=== PATIENT | male | born 1960 | race Caucasian/White ===

== ENCOUNTER 2020-11-02 23:50 | Emergency (ER) | payer MEDICARE, MEDICAID, SELFPAY ==
--- NOTE | ~2020-11-02 | XR_ITS ---
EXAMINATION: XR abdomen/kub 1V INDICATION: Constipation TECHNIQUE: Supine views of the abdomen were obtained on 3 radiographs. COMPARISON: None FINDINGS: A moderate volume of colonic stool is present. A surgical anastomosis is noted in the right abdomen. There are no dilated loops of bowel. Phleboliths are noted in the pelvis. There is severe l ower lumbar spondylosis. IMPRESSION: 1. Constipation. Reviewed, dictated and finalized at location A. IMPRESSION: 1. Constipation.
[2020-11-02 23:58] VITALS: BP 136/99; PULSE 93; RESP 16; TEMP 36.3; O2SAT 99
[2020-11-03] VITALS (8 sets, daily range): BP systolic 146–148; BP diastolic 72–75; PULSE 78–123; RESP 16; O2SAT 97–100
[2020-11-03] MEDS: MAGNESIUM CITRATE 300 ML BTL PO (01:41)
--- NOTE | 2020-11-03 01:56 | PC.NURSE ---
ok to do fleets enema instead of soap suds d/t supply issue in dept.
--- NOTE | 2020-11-03 02:42 | ED.GENADULT ---
HPI - General Adult General Chief complaint: Unspecified Stated complaint: constipation x3 days Time Seen by Provider: 11/03/20 01:01 History of Present Illness HPI narrative: Patient is a 60-year-old male who presents the ER with constipation. Takes Suboxone 3 times a day. Take stool softeners was not been able to defecate for 2 to 3 days. No nausea or vomiting or belching. No history of bowel obstruction. No additional concerns. Related Data Allergies Allergy/AdvReac Type Severity Reaction Status Date / Time cephalexin Allergy Unknown Unknown Verified 11/03/20 01:05 duloxetine Allergy Unknown Unknown Verified 11/03/20 01:05 sulfamethizole Allergy Unknown Unknown Verified 11/03/20 01:05 trimethoprim Allergy Unknown Unknown Verified 11/03/20 01:05 Review of Systems Review of Systems: All systems reviewed & are unremarkable except as noted in HPI and below Constitutional: Constitutional: Denies chills, Denies fever(s) and Denies weakness Cardiovascular: Cardiovascular: Denies chest pain and Denies radiating jaw, neck or arm pain Gastrointestinal: Gastrointestinal: Denies abdominal pain, Reports constipation, Denies nausea and Denies vomiting PMFSH Past Medical History Medical History (Updated 11/03/20 @ 02:47 by Ryan Tran MD) Anxiety CHF (congestive heart failure) COPD (chronic obstructive pulmonary disease) CVA (cerebral vascular accident) Depression Diabetes Hypertension Surgical History Surgical History (Updated 11/03/20 @ 02:45 by Ryan Tran MD) H/O exploratory laparotomy History of appendectomy History of back surgery Family History Family History (Updated 07/20/12 @ 12:07 by DOCTOR UNKNOWN) Other Diabetes mellitus Family history of elevated blood lipids Hypertension Social History Social History Smoking status: Current every day smoker Second hand tobacco smoke exposure: No Alcohol intake: current Exam Narrative: Exam Narrative: GENERAL: Well-appearing, well-nourished, and in no acute distress. HEAD: Normocephalic, atraumatic. CHEST: Clear to auscultation. No respiratory distress. HEART: Regular rate and rhythm. Normal peripheral pulses. ABDOMEN: Soft, nontender, nondistended, normal active bowel sounds. EXTREMITIES: Normal range of motion. No edema. SKIN: Warm, dry, no rash. Shingles from low back around the anterior abdomen inferior to the umbilicus. NEURO: Alert and oriented x3. PSYCH: Normal mood and affect. Course Course Emergency Course: Also notes itching to his skin later in the evaluation and it appears she has shingles. Patient did have a successful bowel movement after magnesium citrate and fleets enema. Discharge home with MiraLAX. Vital Signs Vital signs: Vital Signs Temperature 97.3 F L 11/02/20 23:58 Pulse Rate 93 11/02/20 23:58 Respiratory Rate 16 11/02/20 23:58 Blood Pressure 136/99 H 11/02/20 23:58 Pulse Oximetry 99 11/02/20 23:58 Temperature 97.3 F L 11/02/20 23:58 Pulse Rate 78 11/03/20 01:03 Respiratory Rate 16 11/03/20 01:03 Blood Pressure 146/75 H 11/03/20 01:03 Pulse Oximetry 98 11/03/20 02:30 Medical Decision Making Vital Signs Vital Signs: Vital Signs Temperature 97.3 F L 11/02/20 23:58 Pulse Rate 93 11/02/20 23:58 Respiratory Rate 16 11/02/20 23:58 Blood Pressure 136/99 H 11/02/20 23:58 Pulse Oximetry 99 11/02/20 23:58 Temperature 97.3 F L 11/02/20 23:58 Pulse Rate 78 11/03/20 01:03 Respiratory Rate 16 11/03/20 01:03 Blood Pressure 146/75 H 11/03/20 01:03 Pulse Oximetry 98 11/03/20 02:30 Imaging Data My impression: KUB: Constipation Discharge Plan Discharge Clinical Impression: Constipation, Shingles Patient Disposition: Home, Self-Care Condition: Stable Instructions: Constipation (ED), Shingles (ED) Additional Instructions: Return to the ER if you have fever over 100.4 ?F, you cannot keep down food or water, you have chest
--- NOTE | 2020-11-03 02:43 | PC.NURSE ---
pt reports he had a bm after fleet enema.
== END 2020-11-03 03:07 | disposition home or self-care (01) ==
PROVIDERS: Emergency Provider Emergency Medicine; PCP Internal Medicine Gastroenterology
DX: K59.00 Constipation, unspecified (principal); B02.9 Zoster without complications; F41.9 Anxiety disorder, unspecified; I11.0 Hypertensive heart disease with heart failure; I50.9 Heart failure, unspecified; E11.9 Type 2 diabetes mellitus without complications; F17.200 Nicotine dependence, unspecified, uncomplicated; Z86.73 Personal history of transient ischemic attack (TIA), and cerebral infarction without residual deficits
CPT/HCPCS: 74018; 99283; A9270

== ENCOUNTER 2021-12-31 22:41 | Emergency (ER) | payer OTHER, SELFPAY ==
[2021-12-31 22:49] VITALS: BP 158/80; PULSE 94; RESP 24; TEMP 37; O2SAT 96
[2021-12-31 23:59] VITALS: PULSE 83; RESP 20; O2SAT 97
[2022-01-01] VITALS (9 sets, daily range): BP systolic 132–149; BP diastolic 62–66; PULSE 78–82; RESP 17–26; O2SAT 83–98
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
== END 2022-01-01 02:17 | disposition home or self-care (01) ==
PROVIDERS: Emergency Provider Emergency Medicine; PCP Internal Medicine Gastroenterology
DX: L02.414 Cutaneous abscess of left upper limb (principal); L02.413 Cutaneous abscess of right upper limb; L02.416 Cutaneous abscess of left lower limb; L02.415 Cutaneous abscess of right lower limb; L98.9 Disorder of the skin and subcutaneous tissue, unspecified; F19.10 Other psychoactive substance abuse, uncomplicated; I50.9 Heart failure, unspecified; I11.0 Hypertensive heart disease with heart failure; J44.9 Chronic obstructive pulmonary disease, unspecified; E11.9 Type 2 diabetes mellitus without complications; F32.A Depression, unspecified; F41.9 Anxiety disorder, unspecified; Z86.73 Personal history of transient ischemic attack (TIA), and cerebral infarction without residual deficits; F17.200 Nicotine dependence, unspecified, uncomplicated; Z79.84 Long term (current) use of oral hypoglycemic drugs
CPT/HCPCS: 99283

== ENCOUNTER 2022-02-20 17:15 | Inpatient (IN) | payer OTHER, SELFPAY ==
[2022-02-20] VITALS (30 sets, daily range): BP systolic 93–134; BP diastolic 52–83; PULSE 82–117; RESP 14–28; TEMP 36.6–36.7; O2SAT 86–98
--- NOTE | ~2022-02-20 | CT_ITS ---
EXAMINATION: CT LE RT wo con DATE: 02/20/2022 21:07 INDICATION: Right lower limb wounds. TECHNIQUE: Computed tomography (CT) of the right lower limb was performed without intravenous contras t. Automated exposure control and iterative reconstruction technique were employed. The dose-length p roduct was 1776.50 mGy-cm. COMPARISON: Right tibia and fibula and foot radiographs 02/20/2022 FINDINGS: Bone alignment is normal. No fracture. There is mild osteoarthritis of the knee, ankle, and first metatarsophalangeal joint. There is a small knee joint effusion. There is a small Bermudez's cyst . There is subcutaneous edema in the lower leg. There is extensive subcutaneous edema in the foot, wo rst dorsally. IMPRESSION: 1. No evidence of osteomyelitis. 2. Mild polyarticular osteoarthritis. 3. Small knee joint effusion. 4. Small Bermudez's cyst. Reviewed, dictated and finalized at location A.
--- NOTE | ~2022-02-20 | XR_ITS ---
EXAMINATION: XR tibia fibula RT 2V DATE: 02/20/2022 19:53 INDICATION: Right lower leg wounds. TECHNIQUE: 2 views of right tibia and fibula on 4 radiographs were obtained. COMPARISON: None. FINDINGS: Bone alignment is normal. No fracture. There is mild knee joint osteoarthritis. No knee oleg nt effusion. IMPRESSION: 1. Mild right knee osteoarthritis. Reviewed, dictated and finalized at location A.
--- NOTE | ~2022-02-20 | US_ITS ---
EXAMINATION: US venous doppler [facility] DATE: 02/21/2022 08:19 INDICATION: Lower extremity swelling TECHNIQUE: Talamantes scale images without and with compression and Doppler images of the bilateral lower e xtremity veins were obtained. COMPARISON: None FINDINGS: The right common femoral vein, profunda femoral vein, femoral vein, popliteal vein, peroneal trunk, p osterior tibial veins, and greater saphenous vein are patent. The left common femoral vein, profunda femoral vein, femoral vein, popliteal vein, peroneal trunk, po sterior tibial veins, and greater saphenous vein are patent. IMPRESSION: 1. Patent bilateral lower extremity veins. No evidence of deep venous thrombosis. Reviewed, dictated and finalized at location A. IMPRESSION: 1. Patent bilateral lower extremity veins. No evidence of deep venous thrombosi s.
--- NOTE | ~2022-02-20 | XR_ITS ---
XR chest 1V portable 03/01/2022 05:45 Indication: Wheezing Procedure: AP portable chest Comparison: Comparison to multiple prior studies sequentially, with oldest reviewed study dated 02/02. Findings: Heart size normal. Left basilar atelectasis. PICC line tip in the SVC. No focal pneumonia, edema or effusion. No pneumothorax. Impression: 1: Left basilar atelectasis. Reviewed, dictated and finalized at location A. Impression: 1: Left basilar atelectasis.
--- NOTE | ~2022-02-20 | XR_ITS ---
EXAMINATION: XR foot RT min 3V DATE: 02/20/2022 19:52 INDICATION: Right foot wounds. TECHNIQUE: 3 views of right foot were obtained. COMPARISON: None. FINDINGS: Bone alignment is normal. No fracture. There is mild osteoarthritis of first metatarsophala ngeal joint. There is an enthesophyte at plantar aspect of calcaneal tuberosity. There is soft tissue swelling of the foot. IMPRESSION: 1. Mild osteoarthritis of first metatarsophalangeal joint. Reviewed, dictated and finalized at location A.
--- NOTE | ~2022-02-20 | XR_ITS ---
EXAMINATION: XR elbow LT min 3V DATE: 02/20/2022 19:52 INDICATION: Olecranon bursitis. TECHNIQUE: 4 views of left elbow were obtained. COMPARISON: None. FINDINGS: Bone alignment is normal. No fracture. There is mild elbow joint osteoarthritis. No elbow j oint effusion. There is an enthesophyte at olecranon. There is soft tissue swelling overlying olecran on, consistent with bursitis. IMPRESSION: 1. Olecranon bursitis. 2. Mild elbow joint osteoarthritis. Reviewed, dictated and finalized at location A.
--- NOTE | 2022-02-20 17:41 | ED.WOUNDLAC ---
HPI - Wound/Laceration General Chief Complaint: Wound/Laceration <MARTY Kaufman Last Filed: 02/21/22 05:20> Stated Complaint: right foot wound, frequent falls <MARTY Kaufman Last Filed: 02/21/22 05:20> Time Seen by Provider: 02/20/22 17:41 <MARTY Kaufman Last Filed: 02/21/22 05:20> Source: patient <MARTY Kaufman Last Filed: 02/21/22 05:20> Mode of arrival: ambulatory <MARTY Kaufman Last Filed: 02/21/22 05:20> Limitations: no limitations <MARTY Kaufman Last Filed: 02/21/22 05:20> History of Present Illness HPI narrative: Patient is a 61 y/o male who presents to the ED with c/o wounds to his RLE. Patient is a poor historian. He reports he fell sometime within 2 weeks - 1 month ago. He states he landed on gravel and sustained several abrasions to his hands, left elbow, bilateral knees, and right lower leg. He has been dressing his RLE at home. He states now he is having trouble walking due to the pain in his RLE. States he has been holding onto saldana to get around. Dressing noted to be weeping and dripping in ED waiting room. Patient reports subjective fevers, denies nausea, vomiting. Patient does have a Hx of DM, has not been checking his sugars. <MARTY Kaufman Last Filed: 02/21/22 05:20> Related Data Home Medications: Home Medications Medication Instructions Recorded Confirmed albuterol sulfate 2.5 mg/3 mL 1 mg inhalation TID PRN Adequate 01/01/22 02/21/22 (0.083 %) solution for nebulization Ventilation amitriptyline 50 mg tablet 50 mg PO DAILY 01/01/22 02/21/22 gabapentin 800 mg tablet 800 mg PO TID 01/01/22 02/21/22 metformin 1,000 mg tablet 1,000 mg PO BID 01/01/22 02/21/22 <Brittany Luz PA-C - Last Filed: 02/21/22 05:20> Allergies/Adverse Reactions: Allergies Allergy/AdvReac Type Severity Reaction Status Date / Time duloxetine Allergy Unknown Unknown Verified 02/20/22 20:17 sulfamethizole Allergy Unknown Unknown Verified 02/20/22 20:17 trimethoprim Allergy Unknown Unknown Verified 02/20/22 20:17 cephalexin AdvReac Unknown Unknown Verified 02/20/22 20:17 <Brittany Luz PA-C - Last Filed: 02/21/22 05:20> Review of Systems Review of Systems: CONSTITUTIONAL: Reports subjective fevers. CARDIOVASCULAR: Denies chest pain. RESPIRATORY: Denies dyspnea. GASTROINTESTINAL: Denies abdominal pain, nausea, vomiting. SKIN: Reports scattered abrasions/wounds. MUSCULOSKELETAL: Reports RLE pain. <Brittany Luz PA-C - Last Filed: 02/21/22 05:20> All systems reviewed & are unremarkable except as noted in HPI and below <Brittany Luz PA-C - Last Filed: 02/21/22 05:20> PMFSH Past Medical History Medical History: Medical History (Updated 02/22/22 @ 11:09 by ARNOLD Peres) Anxiety CHF (congestive heart failure) Chronic, continuous use of opioids former oxycodone user. Has been on suboxone 8mg TID for years COPD (chronic obstructive pulmonary disease) CVA (cerebral vascular accident) Depression Diabetes Hypertension <Brittany Luz PA-C - Last Filed: 02/21/22 05:20> Surgical History Surgical History: Surgical History H/O exploratory laparotomy History of appendectomy History of back surgery <Brittany Luz PA-C - Last Filed: 02/21/22 05:20> Family History Family History: Family History (Updated 07/20/12 @ 12:07 by DOCTOR UNKNOWN) Other Diabetes mellitus Family history of elevated blood lipids Hypertension <Brittany Luz PA-C - Last Filed: 02/21/22 05:20> Social History Social History: Social History Smoking packs per day: 1 Smoking cigarettes per day: 20.0 Years smoked: 47 Smoking pack-years: 47.00 Smoking status: Current every day smok
[2022-02-20 18:20] LABS: Lactic Acid Reflex 3.2 mmol/L (0.7-2.0)
[2022-02-20 18:36] LABS: Erythrocyte Sedimentation Rate 14 mm/hr (0-20)
[2022-02-20] MEDS: SODIUM CHLORIDE 0.9% IV 1,000 ML 999 ML IV CONT ×2 (18:53→20:17)
[2022-02-20 19:02] LABS: CRP 38.8 mg/dL (<1.0)
[2022-02-20 19:09] LABS: Alanine Aminotransferase 40 U/L (6-50); Albumin Level 3.7 g/dL (3.5-5.1); Alkaline Phosphatase 223 U/L (38-126); Anion Gap 15 mmol/L (8-16); Aspartate Amino Transferase 62 U/L (17-59); Bilirubin,Total 0.6 mg/dL (0.2-1.3); Blood Urea Nitrogen 20 mg/dL (9-20); Calcium 8.9 mg/dL (8.4-10.2); Carbon Dioxide 32 mmol/L (22-30); Chloride 82 mmol/L (98-107); Estimated Glomerular Filt Rate > 60; Glucose 533 mg/dL (65-110); Sodium 129 mmol/L (137-145)
[2022-02-20 19:10] LABS: Hematocrit 42.6 % (42.0-52.0); Hemoglobin 13.8 g/dL (14.0-18.0); Mean Corpuscular HGB Conc 32.4 g/dl (32-36); Mean Corpuscular Hemoglobin 26.8 pg (26-34); Mean Corpuscular Volume 82.7 fl (80-100); Mean Platelet Volume 9.7 fl (7.4-10.4); Platelet Count Result 575 k/mm3 (150-375); Red Blood Count 5.15 M/mm3 (4.6-6.20); Red Cell Distribution Width 13.7 % (11.5-14.5); White Blood Count 29.4 K/mm3 (4.5-10.0)
--- NOTE | 2022-02-20 19:26 | PC.NURSE ---
Patient's RLE is swollen and weeping with purulent fluid. Patient states he dressed his wounds last night. Patient has decreased sensation in lower extremity due to hx of neuropathy. Wounds appear to be sloughing, eschar tissue, and draining in multiple different areas of leg. Checking for pedal pulses at this time with doppler.
[2022-02-20 19:30] LABS: Band Neutrophils Percent 13 % (0-6); Lymphocytes Absolute Manual 1.47 K/mm3 (1.1-4.5); Monocytes Absolute Manual 0.58 K/mm3 (0.1-0.90); Monocytes Percent Manual 2 % (3-9); Neutrophils Absolute Manual 27.34 K/mm3 (1.3-6.7); Neutrophils Percent Manual 80 % (46-73); Schistocytes None Seen (NORMAL); Total Cells Counted 100
[2022-02-20 19:31] LABS: Platelet Estimate Increased (Adequate)
[2022-02-20 19:46] LABS: Beta-Hydroxybutyrate/Acetoacetate 0.04 mmol/L (0.02-0.27)
--- NOTE | 2022-02-20 20:38 | PM.IMHP ---
H&P: HPI History of Present Illness Date/Time: 02/20/22 20:38 Chief Complaint: RIGHT LOWER EXTREMITY CELLULITIS Narrative: This is a 61-year-old male with past medical history significant for congestive heart failure, COPD, stroke, depression, diabetes, hypertension, drug abuse. patient is a poor historian came to the emergency room due to worsening right lower extremity swelling, tenderness, patient cannot time the events. Preliminary workup was significant for lactic acid of 3.2 WBC 29,000 with 10% bands, a CT of the right lower extremity was reported as: IMPRESSION: 1. No evidence of osteomyelitis. 2. Mild polyarticular osteoarthritis. 3. Small knee joint effusion. 4. Small Bermudez's cyst. patient is being admitted for further evaluation management and treatment. [facility] Past Medical History Medical History (Updated 02/21/22 @ 04:23 by Lincoln Garcia MD) Anxiety CHF (congestive heart failure) COPD (chronic obstructive pulmonary disease) CVA (cerebral vascular accident) Depression Diabetes Hypertension Surgical History Surgical History H/O exploratory laparotomy History of appendectomy History of back surgery Family History Family History (Updated 07/20/12 @ 12:07 by DOCTOR UNKNOWN) Other Diabetes mellitus Family history of elevated blood lipids Hypertension Social History Social History Smoking packs per day: 1 Smoking cigarettes per day: 20.0 Years smoked: 47 Smoking pack-years: 47.00 Smoking status: Current every day smoker Tobacco type: cigarettes Second hand tobacco smoke exposure: No Alcohol intake: unknown Substance use: unknown Substance use type: amphetamines Spiritual care concerns: No Has the Lack of Transportation Kept You From Medical Appointments or From Getting Medications?: No Within the Past 12 Months, Were You Worried Whether Your Food Would Run Out Before You Got Money to Buy More?: Sometimes True What is Your Housing Situation Today?: I Have Housing Are You Worried That in the Next 2 Months, You May Not Have Your Own Housing to Live In?: No Do You Have Trouble Paying Your Heating Or Electricity Bill?: No Do You Have Trouble Paying For Medicines?: No Are You Currently Unemployed and Looking for Work?: No Highest Level of Education Completed: High School Diploma/GED Do You Have Trouble With Childcare or the Care of a Family Member?: No Meds Home Medications and Allergies Home Medications Medication Instructions Recorded Confirmed Type polyethylene glycol 3350 17 17 g PO BID #119 grams 11/03/20 Rx gram/dose oral powder (Miralax) valacyclovir 1 gram tablet 1,000 mg PO Q8H #21 tabs 11/03/20 Rx albuterol sulfate 2.5 mg/3 mL mg 01/01/22 History (0.083 %) solution for nebulization amitriptyline 50 mg tablet mg 01/01/22 History amoxicillin 875 mg tablet 875 mg PO Q12H 7 days #14 tabs 01/01/22 Rx buprenorphine 8 mg-naloxone 2 mg 1 film sublingual TID 01/01/22 01/01/22 History sublingual film (Suboxone) doxycycline monohydrate 100 mg 100 mg PO BID #14 tabs 01/01/22 Rx tablet gabapentin 800 mg tablet mg 01/01/22 History metformin 1,000 mg tablet mg 01/01/22 History Allergies Allergy/AdvReac Type Severity Reaction Status Date / Time duloxetine Allergy Unknown Unknown Verified 02/20/22 20:17 sulfamethizole Allergy Unknown Unknown Verified 02/20/22 20:17 trimethoprim Allergy Unknown Unknown Verified 02/20/22 20:17 cephalexin AdvReac Unknown Unknown Verified 02/20/22 20:17 Vital Signs Vital Signs - 24 hr 02/20/22 17:38 02/20/22 18:23 02/20/22 20:33 Temperature 97.8 F 98.1 F Pulse Rate 82 96 Respiratory Rate 16 16 Blood Pressure 93/63 L 134/78 Pulse Oximetry 95 98 86 L Oxygen Delivery Room Air Room Air Oxygen Flow Rate 02/20/22 20:33 Temperature Pulse Rate Respira
[2022-02-20 20:44] LABS: Add Urine Microscopic? YES; Appearance Urine Clear (Clear); Bilirubin Urine Negative (Negative); Blood Urine 1+ (Negative); Color Urine Yellow (Yellow); Glucose Urine UA 3+ mg/dL (Negative); Ketones Urine Negative (Negative); Leukocyte Esterase Ur Negative LEU/UL (Negative); Nitrate Urine Negative (Negative); Protein Urine Negative (Negative); RBC Urine 0-2 /hpf (0-2); Squamous Epithelial Cell Urine Rare /hpf (Few); WBC Urine 0-3 /hpf
[2022-02-20 20:56] LABS: Specific Grav Ur 1.031 (1.001-1.035)
[2022-02-20 21:07] LABS: Reflex Lactic Acid Yes or No Add Lactic
[2022-02-20] MEDS: metroNIDAZOLE 500 MG/ISO 100ML 500 MG/100 ML BAG 100 MG IVPB (21:28)
[2022-02-20 21:37] LABS: Lactic Acid 1.6 mmol/L (0.7-2.0)
[2022-02-20 22:09] LABS: SARS-CoV-2 RNA PCR Negative
[2022-02-20 22:42] LABS: Glucose Point of Care 350 mg/dl (65-105)
[2022-02-20 22:55] LABS: Basophils Absolute Auto 0.1 K/mm3 (0.0-0.1); Basophils Percent Auto 0.3 % (0.2-1.2); Eosinophils Percent Auto 0.1 % (0-4.4); Hematocrit 34.5 % (42.0-52.0); Hemoglobin 11.2 g/dL (14.0-18.0); Immature Granulocyte Absolute 0.29 K/mm3 (0.00-0.031); Immature Granulocyte Percent A 1.1 % (0-0.5); Lymphocytes Absolute Auto 1.58 K/mm3 (0.9-3.2); Lymphocytes Percent Auto 5.8 % (18.3-44.2); Mean Corpuscular HGB Conc 32.5 g/dl (32-36); Mean Corpuscular Hemoglobin 26.5 pg (26-34); Mean Corpuscular Volume 81.6 fl (80-100); Mean Platelet Volume 9.3 fl (7.4-10.4); Monocytes Absolute Auto 1.2 K/mm3 (0.1-0.6); Monocytes Percent Auto 4.5 % (2.6-8.5); Neutrophils Absolute Auto 23.9 K/mm3 (1.3-6.7); Neutrophils Percent Auto 88.2 % (45.5-73.1); Platelet Count Result 482 k/mm3 (150-375); Red Blood Count 4.23 M/mm3 (4.6-6.20); Red Cell Distribution Width 13.7 % (11.5-14.5); White Blood Count 27.1 K/mm3 (4.5-10.0)
[2022-02-20 23:05] LABS: Anion Gap 8 mmol/L (8-16); Blood Urea Nitrogen 18 mg/dL (9-20); Calcium 7.7 mg/dL (8.4-10.2); Carbon Dioxide 29 mmol/L (22-30); Chloride 92 mmol/L (98-107); Estimated CRCL calculation 106 ml/min; Estimated Glomerular Filt Rate > 60; Glucose 335 mg/dL (65-110); Potassium 3.8 mmol/L (3.4-5.0); Sodium 129 mmol/L (137-145)
[2022-02-21] VITALS (8 sets, daily range): BP systolic 127–144; BP diastolic 55–71; PULSE 96–127; RESP 18–20; TEMP 36.2–38.2; O2SAT 92–100; BMI 26.4
[2022-02-21] MEDS: SODIUM CHLORIDE 0.9% IV 1,000 ML 125 ML IV CONT ×2 (02:22→18:40)
--- NOTE | 2022-02-21 03:00 | ADMGEN ---
This patient, Silver Yusuf, was admitted to 3 [facility] Surg Room 302-01. Patient/family oriented to hospital policies and general routines including ID bracelet, bed and alarms, visiting hours, pain management, procedures, bathroom and other care routines, personal items, smoking policy, room service/diet, and visiting hours. Information on how to activate the Rapid Response Team has been discussed. Patient/Family are encouraged to report perceived risks to care and to ask questions if they do not understand what they are told or what they should do.
[2022-02-21] MEDS: metroNIDAZOLE 500 MG/ISO 100ML 500 MG/100 ML BAG 100 MG IVPB ×2 (05:30→12:17)
[2022-02-21] MEDS: ACETAMINOPHEN 500 MG TABLET 1000 MG PO ×2 (05:31→12:03)
[2022-02-21 08:08] LABS: Alanine Aminotransferase 25 U/L (6-50); Albumin Level 2.9 g/dL (3.5-5.1); Alkaline Phosphatase 159 U/L (38-126); Anion Gap 12 mmol/L (8-16); Aspartate Amino Transferase 24 U/L (17-59); Blood Urea Nitrogen 15 mg/dL (9-20); Calcium 7.8 mg/dL (8.4-10.2); Carbon Dioxide 26 mmol/L (22-30); Chloride 90 mmol/L (98-107); Estimated CRCL calculation 106 ml/min; Estimated Glomerular Filt Rate > 60; Glucose 304 mg/dL (65-110); Magnesium 1.4 mg/dL (1.6-2.3); Potassium 3.8 mmol/L (3.4-5.0); Sodium 128 mmol/L (137-145)
[2022-02-21 08:32] LABS: Basophils Absolute Auto 0.1 K/mm3 (0.0-0.1); Basophils Percent Auto 0.2 % (0.2-1.2); Hematocrit 34.8 % (42.0-52.0); Hemoglobin 11.3 g/dL (14.0-18.0); Immature Granulocyte Absolute 0.61 K/mm3 (0.00-0.031); Lymphocytes Absolute Auto 1.13 K/mm3 (0.9-3.2); Lymphocytes Percent Auto 3.7 % (18.3-44.2); Mean Corpuscular HGB Conc 32.5 g/dl (32-36); Mean Corpuscular Hemoglobin 26.2 pg (26-34); Mean Corpuscular Volume 80.7 fl (80-100); Mean Platelet Volume 9.3 fl (7.4-10.4); Monocytes Absolute Auto 1.1 K/mm3 (0.1-0.6); Monocytes Percent Auto 3.4 % (2.6-8.5); Neutrophils Percent Auto 90.7 % (45.5-73.1); Platelet Count Result 496 k/mm3 (150-375); Red Blood Count 4.31 M/mm3 (4.6-6.20); Red Cell Distribution Width 13.7 % (11.5-14.5); White Blood Count 30.9 K/mm3 (4.5-10.0)
[2022-02-21 09:22] LABS: Platelet Estimate Increased (Adequate); Schistocytes None Seen (NORMAL)
[2022-02-21] MEDS: ENOXAPARIN 40 MG/0.4 ML SYRINGE SUB-Q (10:43)
[2022-02-21] MEDS: MAGNESIUM SULF 2 GM/WATER 50ML 2 GM/50 ML BAG IVPB (12:15)
--- NOTE | 2022-02-21 13:59 | P.PNIM_ITS ---
Progress Note: A&P Assessment and Plan (1) Sepsis: Qualifiers: Sepsis acute organ dysfunction status: unspecified Sepsis type: sepsis due to unspecified organism Qualified Code(s): A41.9 - Sepsis, unspecified o rganism Code(s): A41.9 - Sepsis, unspecified organism Status: Acute Assessment and Plan: * Patient currently meets sepsis criteria with temperature greater than 100.4, heart rate greater than 90 [place] [address] with 13% bands. We do have a source of infection qualifying him for sepsis, lactic acid is pending, however he has preserved systolic blood pressure without drop and is not showing signs of shock. * blood cultures, wound culture, lactic acid currently pending * continue antibiotics of vancomycin, cefepime and Flagyl. * Awaiting surgery recommendations for further management. * MRI with contrast ordered of the right lower extremity to evaluate for osteomyelitis as there is a large area of necrosis on the top of the foot. * Pain medicines as needed. * Continue to monitor labs and vital signs. (2) Wound of right lower extremity: Code(s): S81.801A - Unspecified open wound, right lower leg, initial encounter Status: Acute Assessment and Plan: * See plan above for problem 1. * Venous Dopplers negative for any acute DVT. * Continuing antibiotics as noted above. * Awaiting wound consult. (3) Drug dependence, abuse: Code(s): F19.20 - Other psychoactive substance dependence, uncomplicated Status: Chronic Assessment and Plan: * Continue Suboxone * Monitor for signs of withdrawal. (4) COPD (chronic obstructive pulmonary disease): Code(s): J44.9 - Chronic obstructive pulmonary disease, unspecified Status: Chronic Assessment and Plan: * not in acute exacerbation. * Continue nebulizer and/or inhaler treatments. * Monitor (5) CHF (congestive heart failure): Code(s): I50.9 - Heart failure, unspecified Status: Chronic Assessment and Plan: * not in acute exacerbation. * Patient currently appears euvolemic. Time Spent With Patient Time with patient: 15 - 25 minutes Subjective Date/time seen: 02/21/22 0900 This patient is examined at the bedside after the admitted to the hospital with A severe cellulitis of the right lower extremity. He has been started on vancomycin, cefepime and Flagyl. We are currently awaiting recommendations of surgery. Pt. with complaints today of pain and continued worsening of the redness in his right leg. He also threatens to leave AMA because it is hot in his room. Pt. was easily calmed down by re-direction with adjusting the ther mostat and we are getting him a fan. He has no CP, dyspnea, N/V/D or other complaints. His WBC's increased again to 30.9 with 13% bandemia. He has had intermittent fevers and tachycardia. Wound pictures are in chart, MRI of leg and foot is being ordered to assess further for osteo secondary to the large amount of necrosis on the top of the right foot. Patient currently meets sepsis criteria with temperature greater than 100.4, heart rate greater than 90 [place] [address] with 13% bands. We do have a source of infection qualifying him for sepsis, lactic acid is pending, however he has preserved systolic blood pressure without drop and is not showing signs of shock. Blood cultures are pending. Preliminary wound culture significant for cream stated showing a moderate amount of white blood cells and many Gram- positive cocci. Review of Systems Review of Systems: All system
--- NOTE | 2022-02-21 13:59 | PM.IMPN ---
Progress Note: A&P Assessment and Plan (1) Sepsis: Qualifiers: Sepsis acute organ dysfunction status: unspecified Sepsis type: sepsis due to unspecified organism Qualified Code(s): A41.9 - Sepsis, unspecified organism Code(s): A41.9 - Sepsis, unspecified organism Status: Acute Assessment and Plan: Patient currently meets sepsis criteria with temperature greater than 100.4, heart rate greater than 90 [place] [address] with 13% bands. We do have a source of infection qualifying him for sepsis, lactic acid is pending, however he has preserved systolic blood pressure without drop and is not showing signs of shock. blood cultures, wound culture, lactic acid currently pending continue antibiotics of vancomycin, cefepime and Flagyl. Awaiting surgery recommendations for further management. MRI with contrast ordered of the right lower extremity to evaluate for osteomyelitis as there is a large area of necrosis on the top of the foot. Pain medicines as needed. Continue to monitor labs and vital signs. (2) Wound of right lower extremity: Code(s): S81.801A - Unspecified open wound, right lower leg, initial encounter Status: Acute Assessment and Plan: See plan above for problem 1. Venous Dopplers negative for any acute DVT. Continuing antibiotics as noted above. Awaiting wound consult. (3) Drug dependence, abuse: Code(s): F19.20 - Other psychoactive substance dependence, uncomplicated Status: Chronic Assessment and Plan: Continue Suboxone Monitor for signs of withdrawal. (4) COPD (chronic obstructive pulmonary disease): Code(s): J44.9 - Chronic obstructive pulmonary disease, unspecified Status: Chronic Assessment and Plan: not in acute exacerbation. Continue nebulizer and/or inhaler treatments. Monitor (5) CHF (congestive heart failure): Code(s): I50.9 - Heart failure, unspecified Status: Chronic Assessment and Plan: not in acute exacerbation. Patient currently appears euvolemic. Time Spent With Patient Time with patient: 15 - 25 minutes Subjective Date/time seen: 02/21/22 0900 This patient is examined at the bedside after the admitted to the hospital with A severe cellulitis of the right lower extremity. He has been started on vancomycin, cefepime and Flagyl. We are currently awaiting recommendations of surgery. Pt. with complaints today of pain and continued worsening of the redness in his right leg. He also threatens to leave AMA because it is hot in his room. Pt. was easily calmed down by re-direction with adjusting the thermostat and we are getting him a fan. He has no CP, dyspnea, N/V/D or other complaints. His WBC's increased again to 30.9 with 13% bandemia. He has had intermittent fevers and tachycardia. Wound pictures are in chart, MRI of leg and foot is being ordered to assess further for osteo secondary to the large amount of necrosis on the top of the right foot. Patient currently meets sepsis criteria with temperature greater than 100.4, heart rate greater than 90 [place] [address] with 13% bands. We do have a source of infection qualifying him for sepsis, lactic acid is pending, however he has preserved systolic blood pressure without drop and is not showing signs of shock. Blood cultures are pending. Preliminary wound culture significant for cream stated showing a moderate amount of white blood cells and many Gram-positive cocci. Review of Systems Review of Systems: All systems reviewed & are unremarkable except as noted in HPI and below Exam Const: General: uncomfortable HENMT: Mouth: Yes moist mucous membranes Eyes: General: appearance normal, both eyes and all related structures Sclera: sclerae normal Neck: Neck: supple and no JVD Resp: Effort & Inspection: normal respiratory effort Auscultation: clear to aus
[2022-02-21 14:46] LABS: Lactic Acid Reflex 2.4 mmol/L (0.7-2.0)
[2022-02-21 17:35] LABS: Reflex Lactic Acid Yes or No Add Lactic
--- NOTE | 2022-02-21 17:54 | PM.CNGS ---
Assessment and Plan Assessment and plan (1) Diabetic infection of right foot: Code(s): E11.628 - Type 2 diabetes mellitus with other skin complications; L08.9 - Local infection of the skin and subcutaneous tissue, unspecified Status: Acute Assessment and Plan: has a black bullous lesion on the dorsum of his right foot as well as a gangrenous ulcer on his heel. Several areas on the foot and lower leg of epithelial bull eye which have ruptured and somewhat sloughed. Also seems to have vascular insufficiency of the right foot as I cannot feel any pulses. Will take patient to surgery tomorrow for debridement of blackened areas. Will also debride some of the epithelial bull eye that are loose and not very clean. I am not sure the leg it is salvageable but will start with debridement and see how extensive the necrosis is. (2) Uncontrolled diabetes mellitus: Qualifiers: Diabetes mellitus type: type 2 Glycemic state: with hyperglycemia Qualified Code(s): E11.65 - Type 2 diabetes mellitus with hyperglycemia Status: Acute Assessment and Plan: Initial blood sugar 533. Improving with treatment. (3) Drug dependence, abuse: Code(s): F19.20 - Other psychoactive substance dependence, uncomplicated Status: Chronic Assessment and Plan: Admitted to methamphetamine use just last December. Although he takes Suboxone, I suspect he continues to use methamphetamine and potentially other illicit drugs. (4) Smoker: Code(s): F17.200 - Nicotine dependence, unspecified, uncomplicated Status: Chronic Assessment and Plan: Will make healing more difficult. Advised to quit. (5) COPD (chronic obstructive pulmonary disease): Code(s): J44.9 - Chronic obstructive pulmonary disease, unspecified Status: Chronic Assessment and Plan: No breathing problems at present. History of Present Illness Consult details Consult date: 02/21/22 Reason for consult: ischemic leg ( Gangrenous ulcers and infection right leg) Requesting physician: Brittany Luz PA-C Narrative: patient is a 61-year-old man with uncontrolled diabetes and history of drug addiction who came to the emergency room last night with a severe right leg infection. He reportedly fell on some [place] about 2 or 3 weeks ago and suffered several abrasions but also injury to the right foot. He had been putting an unknown salves on the wounds of the foot but the pain continued to get worse and he was having a great difficulty the walking on his right leg. He was seen in the emergency room and found to have a severe diabetic foot infection with white blood cell count 82491 and a left shift. Lactate was 3.2. Creatinine was normal. He did have a CRP of 39. Reviewing some previous admissions, the patient was seen around the 03 of November for constipation and also noted to have shingles. He was also seen January 01 with multiple skin lesions and admitted to having taken methamphetamine about a week and a half before that. He refused lab work and the presumptive diagnosis was pruritus and scratching has the source of the skin lesions. Patient does take Suboxone. He is a smoker and has a history of COPD. He is seen now in consultation regarding his right leg infection. Review of Systems Review of Systems: All systems reviewed & are unremarkable except as noted in HPI and below ( HPI and those items noted below) Constitutional: Constitutional: Reports as per HPI, Denies chills and Reports fever(s) ( has felt feverish but did not take temperature) Cardiovascular: Cardiovascular: Denies chest pain, Denies diaphoresis, Denies dyspnea and Denies paroxysmal nocturnal dyspnea Respiratory: Respiratory: Denies chest congestion, Denies cough and Denies dyspnea Integumentary/Breasts: Skin/Breast: Denies lesions and Denies rash [facility] Past Medical History Medical History (Reviewed 02/21/22 @ 05:15 by Brittany Ghotra
[2022-02-21] MEDS: INSULIN ASPART (*BKC) 100 UNITS/ML 6 UNITS SUB-Q (22:58)
[2022-02-21 23:46] LABS: Glucose Point of Care 357 mg/dl (65-105)
[2022-02-22] VITALS (15 sets, daily range): BP systolic 97–153; BP diastolic 57–82; PULSE 90–113; RESP 16–22; TEMP 36.2–36.8; O2SAT 93–100
[2022-02-22] MEDS: metroNIDAZOLE 500 MG/ISO 100ML 500 MG/100 ML BAG 100 MG IVPB ×4 (02:23→20:03)
[2022-02-22] MEDS: NICOTINE (*PBKC) 21 MG PATCH 1 PATCH TRANSDERM ×2 (02:27→14:00)
[2022-02-22 07:54] LABS: Glucose Point of Care 299 mg/dl (65-105)
[2022-02-22] MEDS: INSULIN ASPART (*BKC) 100 UNITS/ML SUB-Q ×3 (08:38→16:51)
[2022-02-22 08:50] LABS: Hematocrit 34.8 % (42.0-52.0); Hemoglobin 11.4 g/dL (14.0-18.0); Mean Corpuscular HGB Conc 32.8 g/dl (32-36); Mean Corpuscular Volume 82.3 fl (80-100); Mean Platelet Volume 8.8 fl (7.4-10.4); Platelet Count Result 540 k/mm3 (150-375); Red Blood Count 4.23 M/mm3 (4.6-6.20); Red Cell Distribution Width 13.8 % (11.5-14.5); White Blood Count 36.5 K/mm3 (4.5-10.0)
[2022-02-22 09:00] LABS: Lactic Acid Reflex 1.2 mmol/L (0.7-2.0)
[2022-02-22 09:12] LABS: Vancomycin Trough 8.4 ug/mL (10.0-20.0)
--- NOTE | 2022-02-22 09:40 | WPDANESEPPF ---
Anes - Initial Pre Proc Eval Procedure: Operation Date: 02/22/22 09:30 Proposed Procedures p I&D Debride Lower Extremity(Right) - Froy Flores MD Date/Time: 02/22/22 09:40 Surgeon: ARNOLD Peres Pre Op Diagnosis: Sepsis, RLE cellulitis/necrosis,hyponatremia Patient Data Age: 61 Gender: M Height: 1.83 m Weight: 88.3 kg Last Vital Signs Temp 36.5 C 02/22/22 09:11 Pulse 110 H 02/22/22 09:11 Resp 18 02/22/22 09:11 BP 153/70 H 02/22/22 09:11 Pulse Ox 96 02/22/22 09:11 O2 Del Method Room Air 02/21/22 09:25 O2 Flow Rate 2 02/20/22 20:33 Allergies Allergy/AdvReac Type Severity Reaction Status Date / Time duloxetine Allergy Unknown Unknown Verified 02/20/22 20:17 sulfamethizole Allergy Unknown Unknown Verified 02/20/22 20:17 trimethoprim Allergy Unknown Unknown Verified 02/20/22 20:17 cephalexin AdvReac Unknown Unknown Verified 02/20/22 20:17 Home Medications Medication Instructions Recorded Confirmed Type albuterol sulfate 2.5 mg/3 mL 1 mg inhalation TID PRN Adequate 01/01/22 02/21/22 History (0.083 %) solution for nebulization Ventilation amitriptyline 50 mg tablet 50 mg PO DAILY 01/01/22 02/21/22 History amoxicillin 875 mg tablet 875 mg PO Q12H 7 days #14 tabs 01/01/22 02/21/22 Rx gabapentin 800 mg tablet 800 mg PO TID 01/01/22 02/21/22 History metformin 1,000 mg tablet 1,000 mg PO BID 01/01/22 02/21/22 History Laboratory Tests 02/21/22 02/21/22 02/21/22 14:16 17:50 18:57 WBC RBC Hgb Hct MCV MCH MCHC RDW Plt Count MPV Sodium Potassium Chloride Carbon Dioxide Anion Gap BUN Creatinine Estim Creat Clear Calc Estimated GFR Glucose POC Capillary Glucose Lactic Acid 2.4 mmol/L H mmol/L 2.0 mmol/L mmol/L (0.7-2.0) (0.7-2.0) Calcium Magnesium Total Bilirubin AST ALT Alkaline Phosphatase Lactate Dehydrogenase C-Reactive Protein Total Protein Albumin Vancomycin Trough Blood Type B Positive Antibody Screen Negative 02/21/22 02/22/22 02/22/22 20:52 07:52 08:35 WBC RBC Hgb Hct MCV MCH MCHC RDW Plt Count MPV Sodium Potassium Chloride Carbon Dioxide Anion Gap BUN Creatinine Estim Creat Clear Calc Estimated GFR Glucose POC Capillary Glucose 357 mg/dl H mg/dl 299 mg/dl H mg/dl (65-105) (65-105) Lactic Acid Calcium Magnesium Total Bilirubin AST ALT Alkaline Phosphatase Lactate Dehydrogenase C-Reactive Protein Total Protein Albumin Vancomycin Trough 8.4 ug/mL L ug/mL (10.0-20.0) Blood Type Antibody Screen 02/22/22 02/22/22 02/22/22 08:35 08:35 08:35 WBC 36.5 K/mm3 H K/mm3 (4.5-10.0) RBC 4.23 M/mm3 L M/mm3 (4.6-6.20) Hgb 11.4 g/dL L g/dL (14.0-18.0) Hct 34.8 % L % (42.0-52.0) MCV 82.3 fl fl (80-100) MCH 27.0 pg pg (26-34) MCHC 32.8 g/dl g/dl (32-36) RDW 13.8 % % (11.5-14.5) Plt Count 540 k/mm3 H k/mm3 (150-375) MPV 8.8 fl fl (7.4-10.4) Sodium Pending Potassium Pending Chloride Pending Carbon Dioxide Pending Anion Gap Pending BUN
[2022-02-22 10:11] LABS: Alanine Aminotransferase 21 U/L (6-50); Albumin Level 2.7 g/dL (3.5-5.1); Alkaline Phosphatase 164 U/L (38-126); Anion Gap 11 mmol/L (8-16); Aspartate Amino Transferase 26 U/L (17-59); Bilirubin,Total 0.7 mg/dL (0.2-1.3); Blood Urea Nitrogen 14 mg/dL (9-20); Calcium 7.9 mg/dL (8.4-10.2); Carbon Dioxide 28 mmol/L (22-30); Chloride 92 mmol/L (98-107); Estimated CRCL calculation 144 ml/min; Estimated Glomerular Filt Rate > 60; Glucose 254 mg/dL (65-110); Lactate Dehydrogenase 109 U/L (120-246); Magnesium 1.5 mg/dL (1.6-2.3); Potassium 3.3 mmol/L (3.4-5.0); Sodium 131 mmol/L (137-145)
[2022-02-22 10:43] LABS: CRP 33.2 mg/dL (<1.0)
--- NOTE | 2022-02-22 10:45 | P.PNIM_ITS ---
Progress Note: A&P Assessment and Plan (1) Sepsis: Qualifiers: Sepsis acute organ dysfunction status: unspecified Sepsis type: sepsis due to unspecified organism Qualified Code(s): A41.9 - Sepsis, unspecified o rganism Code(s): A41.9 - Sepsis, unspecified organism Status: Acute Assessment and Plan: * Continues to meet Sepsis criteria secondary to his RLE wound and cellulitis. Not meeting Severe sepsis or shock criteria. * Interval increase in WBC count today to 36.5. * Preliminary wound cultures are growing a staph species. Identification and susceptibility is still pending. * Blood culture pending. * continue antibiotics of vancomycin, cefepime and Flagyl pending final culture report. * Surgery is managing along with medicine. * MRI with contrast ordered of the right lower extremity to evaluate for osteomyelitis as there is a large area of necrosis on the top of the foot. * Pain medicines as needed. * Continue to monitor labs and vital signs. * Continue IV hydration. (2) Wound of right lower extremity: Code(s): S81.801A - Unspecified open wound, right lower leg, initial encounter Status: Acute Assessment and Plan: * See plan above for problem 1. * Venous Dopplers negative for any acute DVT. * Continuing antibiotics as noted above. * Awaiting wound consult. * Will follow recommendations of Dr. Flores. (3) Drug dependence, abuse: Code(s): F19.20 - Other psychoactive substance dependence, uncomplicated Status: Chronic Assessment and Plan: * Prescribed by Negrito Osorio at [facility] in [place], last filled 01/21/22, He received 90 tablets which is a 30 day supply. * I do not have privileges to prescribe Suboxone on my SHAMAR, therefore I will collaborate with my attending to re-order. * Monitoring for signs of withdrawal will be continued, however, as of my exam today he is not showing any signs of withdrawl for this provider. I favor his tachycardia to be secondary to sepsis. * (4) Hyperglycemia: Code(s): R73.9 - Hyperglycemia, unspecified Status: Acute Assessment and Plan: * check A1c as patient does not received treatment for diabetes mellitus at home. * Sliding scale insulin low dose to start, and adjust, titrating up as needed to allow for optimal healing from surgery today. * hypoglycemia protocol * Accu-Cheks AC and HS * diabetic diet when able to eat post surgery. (5) COPD (chronic obstructive pulmonary disease): Code(s): J44.9 - Chronic obstructive pulmonary disease, unspecified Status: Chronic Assessment and Plan: * not in acute exacerbation. * Continue nebulizer and/or inhaler treatments. * Monitor (6) CHF (congestive heart failure): Code(s): I50.9 - Heart failure, unspecified Status: Chronic Assessment and Plan: * not in acute exacerbation. * Patient currently appears euvolemic. (7) Hyponatremia: Code(s): E87.1 - Hypo-osmolality and hyponatremia Status: Acute Assessment and Plan: * trending upward. Patient was 129 on admission on 02/20/2022 and today he is 131. * Asymptomatic for any neurological deficits. He is not approaching the seizure threshold * We will continue IV fluids of normal saline at 125 ml per hour and replace very slowly to prevent cerebral edema. * Monitor daily labs and vitals (8) Skin lesions, generalized: Code(s): L98.9 - Disorder of the skin and subcutaneous tissue, unspecified Status: Acute
--- NOTE | 2022-02-22 10:45 | PM.IMPN ---
Progress Note: A&P Assessment and Plan (1) Sepsis: Qualifiers: Sepsis acute organ dysfunction status: unspecified Sepsis type: sepsis due to unspecified organism Qualified Code(s): A41.9 - Sepsis, unspecified organism Code(s): A41.9 - Sepsis, unspecified organism Status: Acute Assessment and Plan: Continues to meet Sepsis criteria secondary to his RLE wound and cellulitis. Not meeting Severe sepsis or shock criteria. Interval increase in WBC count today to 36.5. Preliminary wound cultures are growing a staph species. Identification and susceptibility is still pending. Blood culture pending. continue antibiotics of vancomycin, cefepime and Flagyl pending final culture report. Surgery is managing along with medicine. MRI with contrast ordered of the right lower extremity to evaluate for osteomyelitis as there is a large area of necrosis on the top of the foot. Pain medicines as needed. Continue to monitor labs and vital signs. Continue IV hydration. (2) Wound of right lower extremity: Code(s): S81.801A - Unspecified open wound, right lower leg, initial encounter Status: Acute Assessment and Plan: See plan above for problem 1. Venous Dopplers negative for any acute DVT. Continuing antibiotics as noted above. Awaiting wound consult. Will follow recommendations of Dr. Flores. (3) Drug dependence, abuse: Code(s): F19.20 - Other psychoactive substance dependence, uncomplicated Status: Chronic Assessment and Plan: Prescribed by Negrito Osorio at [facility] in [place], last filled 01/21/22, He received 90 tablets which is a 30 day supply. I do not have privileges to prescribe Suboxone on my [facility], therefore I will collaborate with my attending to re-order. Monitoring for signs of withdrawal will be continued, however, as of my exam today he is not showing any signs of withdrawl for this provider. I favor his tachycardia to be secondary to sepsis. (4) Hyperglycemia: Code(s): R73.9 - Hyperglycemia, unspecified Status: Acute Assessment and Plan: check A1c as patient does not received treatment for diabetes mellitus at home. Sliding scale insulin low dose to start, and adjust, titrating up as needed to allow for optimal healing from surgery today. hypoglycemia protocol Accu-Cheks AC and HS diabetic diet when able to eat post surgery. (5) COPD (chronic obstructive pulmonary disease): Code(s): J44.9 - Chronic obstructive pulmonary disease, unspecified Status: Chronic Assessment and Plan: not in acute exacerbation. Continue nebulizer and/or inhaler treatments. Monitor (6) CHF (congestive heart failure): Code(s): I50.9 - Heart failure, unspecified Status: Chronic Assessment and Plan: not in acute exacerbation. Patient currently appears euvolemic. (7) Hyponatremia: Code(s): E87.1 - Hypo-osmolality and hyponatremia Status: Acute Assessment and Plan: trending upward. Patient was 129 on admission on 02/20/2022 and today he is 131. Asymptomatic for any neurological deficits. He is not approaching the seizure threshold We will continue IV fluids of normal saline at 125 ml per hour and replace very slowly to prevent cerebral edema. Monitor daily labs and vitals (8) Skin lesions, generalized: Code(s): L98.9 - Disorder of the skin and subcutaneous tissue, unspecified Status: Acute Assessment and Plan: Multiple small areas papular formation have been noted in the genitalia regions and the rectal region. STI testing is initiated for gonorrhea, chlamydia, herpes and also for syphilis. Time Spent With Patient Time with patient: 25 - 35 minutes Subjective Date/time seen: 02/22/22 2956 This 61-year-old male patient was examined at the bedside today in interval assessment after being admit
[2022-02-22] MEDS: HEMOSTATIC MATRIX (SURGIFLO with THROMBIN) KIT 1 KIT XX (11:04)
[2022-02-22] MEDS: LACTATED RINGERS 1,000 ML 30 ML IV CONT (11:21)
[2022-02-22] MEDS: HYDROmorphone HCL INJ (*CRX) 1 MG/ML SYR 0.5 MG IV PUSH ×2 (12:09→12:27)
--- NOTE | 2022-02-22 12:15 | W.PM.PROC2 ---
Procedure Note - Detailed Date of Procedure 02/22/22 Pre-op Diagnosis Diabetic foot infection right foot Post-op Diagnosis Other (Necrotizing soft tissue infection right foot) Procedure Performed Excisional debridement 14 x 6 cm (84 cm2) area skin subcutaneous and muscle dorsum right foot, excisional debridement skin 15 x 15 cm (225cm2) right lower leg and foot Surgeon Froy Flores MD [employer] [facility] Lopez [facility] Anesthesia General Indications Patient has severe infection in the right foot with a black and bolus lesion over the dorsum of the foot and multiple areas of loss of epithelium in the lower leg and foot. He also has 2 black and areas on the right heel. He is taken to surgery now for debridement. Findings The bullous lesion on the dorsum of the foot contained purulent fluid as well as liquifaction necrosis of subcutaneous and muscle underlying the blackened bullous cover. There was some undermining of the skin to the medial and lateral side as well as distally up towards the toes. The medial black and area on the heel appeared to be superficial and was excisionally debrided. There were multiple areas of epithelium and full thickness skin slough on the anterior aspect of the lower leg as well as on the foot. As much of this was debrided as feasible. Description of Procedure Patient was taken to surgery and induced into general anesthesia. The right leg was prepped and draped so that the entire leg was in the field from the knee down. We started with excisional debridement of all the loose skin and epithelium that was present on the lower leg above the ankle. Areas that would come off fairly readily were removed. There was still quite a bit that was fairly stuck to the underlying skin. This process was continued down to the right foot. There were numerous areas on the toes and of both sides of the feet where epithelium was debrided. Once this was completed, I measured the areas involved. I then exposed the medial black and area on the right heel. I excised the black eschar and found the underlying tissues to be fairly healthy. This was a small area only about 2 x 3 cm. The more posterior lateral black and area on the heel was not completely black and did not suggest any type of underlying infection. These appeared to be pressure ulcers. The total area where skin was excisionally debrided was about 15 x 15 cm or 225 sq cm. We then turned our attention to the bolus lesion with black covering on the dorsum of the foot. Incision was made into the bolus covering. I inserted a swab for cultures. I then enlarged this and quite a bit of purulent fluid was contained within. This was suctioned away. I then excised the black covering and found liquid fashion necrosis involving subcutaneous and any overlying muscle on the dorsum of the foot. After excising the entire skin I then excised all of this tissue. Some of it tunneled under the skin in the lateral and distal areas. It also tunneled proximally but I did go ahead and excise that overlying skin to expose it adequately. Eventually I had excised all of the necrotic subcutaneous and muscle. This area was 14 x 6 cm or 84 centimeters squared. There was oozing from some underlying tissue and I used Surgiflo to minimize this. There was exposed tendon at the base of the wound. These were the extensor tendons to the toes. There was a small amount of tunneling as mentioned. With the extensive number wounds on the leg, we used several pieces of 5 x 9 in Xeroform gauze. All the open wound areas were covered with Xeroform gauze. We then placed fluffs particularly over the full-thickness skin loss on the dorsum of the foot. Several layers of Kerlix roll were then used and wrapped the foot ankle and leg over the Xeroform gauze. Finally a 6 in [place] wrap was used to wrap the leg. Expecting still consider amount of serous drainage, we then wrapped the bandage with a yanet. Patient was then preet
[2022-02-22 12:45] LABS: Glucose Point of Care 330 mg/dl (65-105)
--- NOTE | 2022-02-22 12:47 | SUR.PHASEI ---
ANAID STODDARD AWARE OF BLOOD SUGAR 330. PATIENT TO RECEIVE SLIDING SCALE ORDERED ON FLOOR.
[2022-02-22 13:47] LABS: Glucose Point of Care 282 mg/dl (65-105)
[2022-02-22] MEDS: ENOXAPARIN 40 MG/0.4 ML SYRINGE SUB-Q (14:00)
[2022-02-22] MEDS: BUPRENORPHINE BY MOUTH ×2 (14:04→16:55)
[2022-02-22] MEDS: NALOXONE BY MOUTH ×2 (14:04→16:55)
[2022-02-22] MEDS: KCL 30 MEQ/0.9% SOD CHL 1,000 ML 100 ML IV CONT (14:12)
[2022-02-22 16:29] LABS: Glucose Point of Care 320 mg/dl (65-105)
[2022-02-22] MEDS: FAMOTIDINE 20 MG TABLET PO (20:09)
[2022-02-23] VITALS (7 sets, daily range): BP systolic 129–159; BP diastolic 60–95; PULSE 98–107; RESP 18; TEMP 36.3–37.2; O2SAT 92–100
[2022-02-23 02:08] LABS: Glucose Point of Care 223 mg/dl (65-105)
[2022-02-23] MEDS: KCL 30 MEQ/0.9% SOD CHL 1,000 ML 100 ML IV CONT ×2 (05:41→09:34)
[2022-02-23] MEDS: metroNIDAZOLE 500 MG/ISO 100ML 500 MG/100 ML BAG 100 MG IVPB ×2 (05:42→12:11)
[2022-02-23] MEDS: oxyCODONE/ACETAMINOPHEN (*CRX) 5-325 MG TABLET 1 TABLET PO ×2 (05:49→11:54)
[2022-02-23 06:32] LABS: Basophils Absolute Auto 0.1 K/mm3 (0.0-0.1); Basophils Percent Auto 0.2 % (0.2-1.2); Eosinophils Percent Auto 0.1 % (0-4.4); Hematocrit 32.2 % (42.0-52.0); Hemoglobin 10.7 g/dL (14.0-18.0); Immature Granulocyte Absolute 0.37 K/mm3 (0.00-0.031); Immature Granulocyte Percent A 1.3 % (0-0.5); Lymphocytes Absolute Auto 1.49 K/mm3 (0.9-3.2); Lymphocytes Percent Auto 5.4 % (18.3-44.2); Mean Corpuscular HGB Conc 33.2 g/dl (32-36); Mean Corpuscular Hemoglobin 26.5 pg (26-34); Mean Corpuscular Volume 79.7 fl (80-100); Mean Platelet Volume 8.9 fl (7.4-10.4); Monocytes Absolute Auto 1.2 K/mm3 (0.1-0.6); Monocytes Percent Auto 4.4 % (2.6-8.5); Neutrophils Absolute Auto 24.6 K/mm3 (1.3-6.7); Neutrophils Percent Auto 88.6 % (45.5-73.1); Platelet Count Result 509 k/mm3 (150-375); Red Blood Count 4.04 M/mm3 (4.6-6.20); Red Cell Distribution Width 14.1 % (11.5-14.5); White Blood Count 27.7 K/mm3 (4.5-10.0)
[2022-02-23 06:52] LABS: Alanine Aminotransferase 19 U/L (6-50); Albumin Level 2.5 g/dL (3.5-5.1); Alkaline Phosphatase 153 U/L (38-126); Anion Gap 7 mmol/L (8-16); Aspartate Amino Transferase 29 U/L (17-59); Bilirubin,Total 0.5 mg/dL (0.2-1.3); Blood Urea Nitrogen 13 mg/dL (9-20); Calcium 7.3 mg/dL (8.4-10.2); Carbon Dioxide 32 mmol/L (22-30); Chloride 94 mmol/L (98-107); Estimated CRCL calculation 144 ml/min; Estimated Glomerular Filt Rate > 60; Glucose 265 mg/dL (65-110); Magnesium 1.5 mg/dL (1.6-2.3); Potassium 3.3 mmol/L (3.4-5.0); Sodium 133 mmol/L (137-145)
[2022-02-23 07:20] LABS: CRP 25.2 mg/dL (<1.0)
--- NOTE | 2022-02-23 07:39 | WPDANESPN ---
Anes - Prog Note Post-Op Date/Time: 02/23/22 07:39 Cardiovascular status: normal Respiratory status: normal Airway patency: baseline Mental status: baseline Post-Op hydration status: normal Vital Signs: Last Vital Signs Temp 36.8 C 02/23/22 04:00 Pulse 102 H 02/23/22 04:00 Resp 18 02/23/22 04:00 BP 137/70 02/23/22 04:00 Pulse Ox 93 02/23/22 04:00 O2 Del Method Room Air 02/22/22 13:05 O2 Flow Rate 3 02/22/22 12:20 Pain Score (VAS): 0/10 I/O: Intake & Output 02/22/22 02/22/22 02/23/22 15:59 23:59 07:59 Intake Total 785 114 7263 Balance 451 971 9352 Laboratory Tests 02/23/22 06:11 02/22/22 02/22/22 02/22/22 07:52 08:35 08:35 WBC 36.5 H RBC 4.23 L Hgb 11.4 L Hct 34.8 L MCV 82.3 MCH 27.0 MCHC 32.8 RDW 13.8 Plt Count 540 H MPV 8.8 Immature Gran % (Auto) Neut % (Auto) Lymph % (Auto) [place] % (Auto) Eos % (Auto) Baso % (Auto) Lymph # (Auto) [place] # (Auto) Eos # (Auto) Baso # (Auto) Abs Immat Gran (auto) Absolute Neuts (auto) Absolute Nucleated RBC Nucleated RBC % Sodium Potassium Chloride Carbon Dioxide Anion Gap BUN Creatinine Estim Creat Clear Calc Estimated GFR Glucose POC Capillary Glucose 299 H Hemoglobin A1c Lactic Acid Calcium Magnesium Total Bilirubin AST ALT Alkaline Phosphatase Lactate Dehydrogenase C-Reactive Protein Total Protein Albumin Vancomycin Trough 8.4 L 02/22/22 02/22/22 02/22/22 08:35 08:35 08:35 WBC RBC Hgb Hct MCV MCH MCHC RDW Plt Count MPV Immature Gran % (Auto) Neut % (Auto) Lymph % (Auto) [place] % (Auto) Eos % (Auto) Baso % (Auto) Lymph # (Auto) [place] # (Auto) Eos # (Auto) Baso # (Auto) Abs Immat Gran (auto) Absolute Neuts (auto) Absolute Nucleated RBC Nucleated RBC % Sodium 131 L Potassium 3.3 L Chloride 92 L Carbon Dioxide 28 Anion Gap 11 BUN 14 Creatinine 0.50 L Estim Creat Clear Calc 144 Estimated GFR > 60 Glucose 254 H POC Capillary Glucose Hemoglobin A1c 11.0 H Lactic Acid 1.2 Calcium 7.9 L Magnesium 1.5 L Total Bilirubin 0.7 AST 26 ALT 21 Alkaline Phosphatase 164 H Lactate Dehydrogenase 109 L C-Reactive Protein 33.2 H Total Protein 7.0 Albumin 2.7 L Vancomycin Trough 02/22/22 02/22/22 02/22/22 12:42 13:43 16:13 WBC RBC Hgb Hct MCV MCH MCHC RDW Plt Count MPV Immature Gran % (Auto) Neut % (Auto) Lymph % (Auto) [place] % (Auto) Eos % (Auto) Baso % (Auto) Lymph # (Auto) [place] # (Auto) Eos # (Auto) Baso # (Auto) Abs Immat Gran (auto) Absolute Neuts (auto) Absolute Nucleated RBC Nucleated RBC % Sodium Potassium Chloride Carbon Dioxide Anion Gap BUN Creatinine Estim Creat Clear Calc Estimated GFR Glucose POC Capillary Glucose 330 H 282 H 320 H Hemoglobin A1c Lactic Acid Calcium Magnesium Total Bilirubin AST ALT Alkaline Phosphatase Lactate Dehydrogenase C-Reactive Protein Total Protein Albumin Vancomycin Trough 02/22/22 02/23/22 02/23/22 21:13 06:11 06:11 WBC Pending RBC Pending Hgb Pending Hct Pending MCV Pending MCH Pending MCHC Pending RDW Pending Plt Count Pending MPV Pending Immature Gran % (Auto) Pending Neut % (Auto) Pending Lymph % (Auto) Pending [place] % (Auto) Pending Eos % (Auto) Pending Baso % (Auto) Pending Lymph # (Auto) Pending [place] # (Auto) Pending Eos # (Auto) Pending Baso # (Auto) Pending Abs Immat Gran (auto) Pending Absolute Neuts (auto) Pending Absolute Nucleated RBC Pending Nucleated RBC % Pending Sodium 133 L Potassium 3.3 L
[2022-02-23] MEDS: MAGNESIUM SULF 2 GM/WATER 50ML 2 GM/50 ML BAG IVPB (08:35)
[2022-02-23] MEDS: INSULIN ASPART (*BKC) 100 UNITS/ML SUB-Q ×2 (08:36→17:06)
[2022-02-23] MEDS: POTASSIUM CHLORIDE 20 MEQ TABLET 40 MEQ PO (08:36)
[2022-02-23 08:37] LABS: Glucose Point of Care 250 mg/dl (65-105)
[2022-02-23] MEDS: FAMOTIDINE 20 MG TABLET PO ×2 (08:39→21:04)
[2022-02-23] MEDS: ENOXAPARIN 40 MG/0.4 ML SYRINGE SUB-Q (08:40)
[2022-02-23] MEDS: NICOTINE (*PBKC) 21 MG PATCH 1 PATCH TRANSDERM (08:40)
[2022-02-23] MEDS: BUPRENORPHINE BY MOUTH ×3 (08:47→17:09)
[2022-02-23] MEDS: NALOXONE BY MOUTH ×3 (08:47→17:09)
--- NOTE | 2022-02-23 11:30 | PM.PNGS ---
Progress Note: A&P Assessment and Plan (1) Diabetic infection of right foot: Code(s): E11.628 - Type 2 diabetes mellitus with other skin complications; L08.9 - Local infection of the skin and subcutaneous tissue, unspecified Status: Acute Assessment and Plan: Post-op day 1 excisional debridement of the right lower extremity wounds, which all look good today. We will start local wound care with silver gel and mupirocin ointment dressing changes to the right lower leg and right heel wounds. We will start Santyl dressing changes for enzymatic debridement of the right dorsal foot and right lower lateral leg wound. Wound cx growing group A strep and MRSA. Continue IV antibiotics. We have also ordered a waffle boot for the right lower extremity. (2) Uncontrolled diabetes mellitus: Qualifiers: Diabetes mellitus type: type 2 Glycemic state: with hyperglycemia Qualified Code(s): E11.65 - Type 2 diabetes mellitus with hyperglycemia Status: Acute Assessment and Plan: Glucose in 200's today with one int he 400's around lunch time. Continue with diabetic management per the Hospitalist to optimize glycemic control. (3) Drug dependence, abuse: Code(s): F19.20 - Other psychoactive substance dependence, uncomplicated Status: Chronic (4) Smoker: Code(s): F17.200 - Nicotine dependence, unspecified, uncomplicated Status: Chronic (5) COPD (chronic obstructive pulmonary disease): Code(s): J44.9 - Chronic obstructive pulmonary disease, unspecified Status: Chronic Plan I have discussed the patient's case and plan of care with Dr. Flores. Subjective Subjective Date/Time Seen: 02/23/22 11:30 Post Op day: 1 (Excisional debridement 14 x 6 cm (84 cm2) area skin subcutaneous and muscle dorsum right foot, excisional debridement skin 15 x 15 cm (225cm2) right lower leg and foot) Patient reports: no new complaints and afebrile Interval history: Patient seen and examined with Dr. Flores and the wound care nurse. No acute events overnight. Review of Systems Review of Systems: All systems reviewed & are unremarkable except as noted in HPI and below Exam Const: General: comfortable, no acute distress and awake Orientation/consciousness: patient oriented x3 Skin: Other: Right leg dressing removed. Right anterior lower leg wound looks good today with healthy tissue visible and no necrotic tissue or purulent drainage. Right lower lateral leg has a smaller ulcer with a dry, firm kaba eschar. Right dorsal foot with a large open ulcer with tendon exposed that looks good today with a thin kaba film in some areas of the wound bed, no significant necrotic tissue remaining or purulent drainage noted. There is some undermining of this wound where a hemostatic agent was placed during surgery yesterday. Right heel ulcer also looks good today with firm healthy wound bed. Psych: Insight: Fair insight present (Psych) Judgement: Limited judgement present (Psych) Objective Data Vital Signs Vital Signs: Vital Signs - 24 hr 02/22/22 11:35 02/22/22 11:50 02/22/22 12:05 Temperature Pulse Rate 95 108 H 113 H Respiratory Rate 20 20 20 Blood Pressure 114/67 137/82 144/75 H Pulse Oximetry 100 100 95 Oxygen Delivery Simple Face Mask Simple Face Mask Nasal Cannula Oxygen Flow Rate 6 6 3 02/22/22 12:20 02/22/22 12:35 02/22/22 12:50 Temperature Pulse Rate 110 H 108 H 109 H Respiratory Rate 20 20 22 H Blood Pressure 146/65 H 146/65 H 121/66 Pulse Oximetry 97 93 94 Oxygen Delivery Nasal Cannula Room Air Room Air Oxygen Flow Rate 3 02/22/22 13:05 02/22/22 13:30 02/22/22 13:46 Temperature 98.3 F 97.2 F L Pulse Rate 111 H 110 H 107 H Respiratory Rate 16 18 16 Blood Pressure 135/68 116/65 130/65 Pulse Oximetry 95 95 96 Oxygen Delivery Room Air Oxygen Flow Rate 02/22/22 14:15 02/22/22 15:15 02/22/22 20:00 Temperature 97.7 F 97.5 F L 97.2 F L Pulse Rate 111 H 112 H 113 H
[2022-02-23 11:37] LABS: Glucose Point of Care 457 mg/dl (65-105)
[2022-02-23] MEDS: INSULIN ASPART (*BKC) 100 UNITS/ML 10 UNITS SUB-Q (11:43)
[2022-02-23] MEDS: HYDROmorphone HCL INJ (*CRX) 1 MG/ML SYR IV PUSH (13:16)
--- NOTE | 2022-02-23 13:50 | P.PNIM_ITS ---
Progress Note: A&P Assessment and Plan (1) Sepsis: Qualifiers: Sepsis acute organ dysfunction status: unspecified Sepsis type: sepsis due to unspecified organism Qualified Code(s): A41.9 - Sepsis, unspecified o rganism Code(s): A41.9 - Sepsis, unspecified organism Status: Resolved Assessment and Plan: * Wound cultures are growing MRSA and staph * Blood culture pending, preliminary is negative. * continue antibiotics of vancomycin, cefepime with Flagyl being de-escalated at this time. * Surgery is managing along with medicine. We appreciate the collaboration and co-management. * Pain medicines as needed. * Continue to monitor labs and vital signs. * Continue IV hydration. (2) Wound of right lower extremity: Code(s): S81.801A - Unspecified open wound, right lower leg, initial encounter Status: Acute Assessment and Plan: * See plan above for problem 1. * Venous Dopplers negative for any acute DVT. * Continuing antibiotics as noted above. * Wound consult performed and pt has plan for dressings and treatment for all affected areas. * Will follow recommendations of Dr. Flores. (3) Drug dependence, abuse: Code(s): F19.20 - Other psychoactive substance dependence, uncomplicated Status: Chronic Assessment and Plan: * Prescribed by Negrito Osorio at [facility] in [place], last filled 01/21/22, He received 90 tablets which is a 30 day supply. * I do not have privileges to prescribe Suboxone on my SHAMAR, therefore I will collaborate with my attending to re-order. * Monitoring for signs of withdrawal will be continued, however, as of my exam today he is not showing any signs of withdrawl for this provider. I favor his tachycardia to be secondary to sepsis. * I have coordinated with pharmacy, and they are going to supply pt. with his Suboxone/Naloxone film while here. (4) Hyperglycemia: Code(s): R73.9 - Hyperglycemia, unspecified Status: Acute Assessment and Plan: * HgbA1C is 11.0. * Elevated fasting glucose today signifies he needs better glycemic control. * Increase SSI to high dose * Initiate Lantus 9 units HS. * hypoglycemia protocol * Accu-Cheks AC and HS * diabetic diet when able to eat post surgery. (5) COPD (chronic obstructive pulmonary disease): Code(s): J44.9 - Chronic obstructive pulmonary disease, unspecified Status: Chronic Assessment and Plan: * not in acute exacerbation. * Continue nebulizer and/or inhaler treatments. * Monitor (6) CHF (congestive heart failure): Code(s): I50.9 - Heart failure, unspecified Status: Chronic Assessment and Plan: * not in acute exacerbation. * Patient currently appears euvolemic. (7) Hyponatremia: Code(s): E87.1 - Hypo-osmolality and hyponatremia Status: Acute Assessment and Plan: * trending upward. Patient was 129 on admission on 02/20/2022 and today he is 131. * Asymptomatic for any neurological deficits. He is not approaching the seizure threshold * We will continue IV fluids of normal saline at 125 ml per hour and replace very slowly to prevent cerebral edema. * Monitor daily labs and vitals (8) Skin lesions, generalized: Code(s): L98.9 - Disorder of the skin and subcutaneous tissue, unspecified Status: Acute Assessment and Plan: * Multiple small areas papular formation have been noted in the genitalia regions and the rectal region. * STI testing is initiated for gonorrhea, c
--- NOTE | 2022-02-23 13:50 | PM.IMPN ---
Progress Note: A&P Assessment and Plan (1) Sepsis: Qualifiers: Sepsis acute organ dysfunction status: unspecified Sepsis type: sepsis due to unspecified organism Qualified Code(s): A41.9 - Sepsis, unspecified organism Code(s): A41.9 - Sepsis, unspecified organism Status: Resolved Assessment and Plan: Wound cultures are growing MRSA and staph Blood culture pending, preliminary is negative. continue antibiotics of vancomycin, cefepime with Flagyl being de-escalated at this time. Surgery is managing along with medicine. We appreciate the collaboration and co-management. Pain medicines as needed. Continue to monitor labs and vital signs. Continue IV hydration. (2) Wound of right lower extremity: Code(s): S81.801A - Unspecified open wound, right lower leg, initial encounter Status: Acute Assessment and Plan: See plan above for problem 1. Venous Dopplers negative for any acute DVT. Continuing antibiotics as noted above. Wound consult performed and pt has plan for dressings and treatment for all affected areas. Will follow recommendations of Dr. Flores. (3) Drug dependence, abuse: Code(s): F19.20 - Other psychoactive substance dependence, uncomplicated Status: Chronic Assessment and Plan: Prescribed by Negrito Osorio at [facility] in [place], last filled 01/21/22, He received 90 tablets which is a 30 day supply. I do not have privileges to prescribe Suboxone on my SHAMAR, therefore I will collaborate with my attending to re-order. Monitoring for signs of withdrawal will be continued, however, as of my exam today he is not showing any signs of withdrawl for this provider. I favor his tachycardia to be secondary to sepsis. I have coordinated with pharmacy, and they are going to supply pt. with his Suboxone/Naloxone film while here. (4) Hyperglycemia: Code(s): R73.9 - Hyperglycemia, unspecified Status: Acute Assessment and Plan: HgbA1C is 11.0. Elevated fasting glucose today signifies he needs better glycemic control. Increase SSI to high dose Initiate Lantus 9 units HS. hypoglycemia protocol Accu-Cheks AC and HS diabetic diet when able to eat post surgery. (5) COPD (chronic obstructive pulmonary disease): Code(s): J44.9 - Chronic obstructive pulmonary disease, unspecified Status: Chronic Assessment and Plan: not in acute exacerbation. Continue nebulizer and/or inhaler treatments. Monitor (6) CHF (congestive heart failure): Code(s): I50.9 - Heart failure, unspecified Status: Chronic Assessment and Plan: not in acute exacerbation. Patient currently appears euvolemic. (7) Hyponatremia: Code(s): E87.1 - Hypo-osmolality and hyponatremia Status: Acute Assessment and Plan: trending upward. Patient was 129 on admission on 02/20/2022 and today he is 131. Asymptomatic for any neurological deficits. He is not approaching the seizure threshold We will continue IV fluids of normal saline at 125 ml per hour and replace very slowly to prevent cerebral edema. Monitor daily labs and vitals (8) Skin lesions, generalized: Code(s): L98.9 - Disorder of the skin and subcutaneous tissue, unspecified Status: Acute Assessment and Plan: Multiple small areas papular formation have been noted in the genitalia regions and the rectal region. STI testing is initiated for gonorrhea, chlamydia, herpes and also for syphilis. (9) Bursitis of left elbow: Code(s): M70.32 - Other bursitis of elbow, left elbow Status: Acute Assessment and Plan: Orthopedics consulted. Pt. already on abx appropriate, and has pain meds. Avoid steroids in this case as his Glucose is still high and we are currently trying to optimize his glycemic control, in addition to needing optimization for healing of his op
[2022-02-23] MEDS: HYDROmorphone HCL INJ (*CRX) 1 MG/ML SYR 2 MG IV PUSH ×2 (14:14→22:59)
[2022-02-23 16:47] LABS: Glucose Point of Care 207 mg/dl (65-105)
--- NOTE | 2022-02-23 16:56 | PM.PNORT ---
Progress Note: A&P Assessment and Plan (1) Septic olecranon bursitis of left elbow: Code(s): M71.122 - Other infective bursitis, left elbow Status: Suspected Plan 61-year-old male with a septic left olecranon bursitis. With overall medical status, healing potential is poor however with what is likely a pocket of pus, this needs to be decompressed and debrided. I did discuss with him the condition. He tolerated the debridement of his left leg yesterday with seemingly little trouble so fully he will get through this as well. I did order patient help her for the bed so is no longer leaving on his elbows to push himself up. Currently on antibiotics covering the MRSA and group A strep. Be NPO after midnight tonight. Planned surgical debridement tomorrow when space is available in the schedule. Hold Lovenox for now. Will restart after surgery. Thank for consultation. Subjective Subjective Date/Time Seen: 02/23/22 16:56 Principal diagnosis: Sepsis Interval history: 61-year-old male who was admitted with sepsis. He underwent debridement of his left leg wounds yesterday. Overall doing better but he has a left olecranon bursitis with cellulitis left elbow and with his history this is an all likely had a septic bursitis. Review of Systems Review of Systems: All systems reviewed & are unremarkable except as noted in HPI and below Exam Const: General: comfortable and no acute distress Resp: Effort & Inspection: normal respiratory effort Cardio: Rate: regular rate Skin: Lesions: lesion noted ( healing abrasions over all four extremities) Wounds: wounds noted ( left leg, status post debridement) Neuro: Other: no focal motor deficits. Decreased sensation in glove and stocking distribution. Extrem: Other: Left elbow has got swollen fluctuant olecranon bursa with extensive cellulitis about the posterior elbow and forearm. These areas are tender to palpation. Passive range of motion of the elbow causes no discomfort. Objective Data Vital Signs Vital Signs: Vital Signs - 24 hr 02/22/22 20:00 02/23/22 00:00 02/23/22 04:00 Temperature 97.2 F L 98.9 F 98.2 F Pulse Rate 113 H 107 H 102 H Respiratory Rate 18 18 18 Blood Pressure 146/76 H 129/62 137/70 Pulse Oximetry 93 92 93 Oxygen Delivery 02/23/22 08:00 02/23/22 08:40 02/23/22 12:00 Temperature 97.4 F L 97.4 F L Pulse Rate 102 H 98 Respiratory Rate 18 18 Blood Pressure 137/60 136/65 Pulse Oximetry 93 100 Oxygen Delivery Room Air Intake/Output Intake/Output: Intake & Output 02/20/22 02/21/22 02/22/22 02/23/22 23:59 23:59 23:59 23:59 Intake Total 2250 / 2250 3770 / 3770 3470 / 3470 2940 / 2940 Balance 2250 / 2250 3770 / 3770 3470 / 3470 2940 / 2940 Meds/Results Medications: Active Medications Generic Name Dose Route Start Last Admin Trade Name Freq PRN Reason Stop Dose Admin Acetaminophen 500 mg 02/22/22 13:21 Acetaminophen 500 Mg Tablet PO Q6H PRN Mild Pain (1-3) or Fever Collagenase 1 applic 02/23/22 09:00 Collagenase Oint 30 Gm Tube TOPICAL QAM MARITZA Dextrose 12.5 gm 02/22/22 10:43 Dextrose 50% 25 Gm/50 Ml Syringe IV PUSH PRN PRN Hypoglycemia Protocol Enoxaparin Sodium 40 mg 02/21/22 09:00 02/23/22 08:40 Enoxaparin 40 Mg/0.4 Ml Syringe SUB-Q 40 mg DAILY MARITZA Administration Famotidine 20 mg 02/22/22 21:00 02/23/22 08:39 Famotidine 20 Mg Tablet PO 20 mg Q12HR MARITZA Administration Glucagon 1 mg 02/22/22 10:43 Glucagon For Inj 1 Mg Vial IM PRN PRN Hypoglycemia Protocol Glucose 15 gm 02/22/22 10:43 Glucose Oral Gel 15 Gm Of Glucse In 37.5 Gm Tube PO PRN PRN Hypoglycemia Protocol Hydromorphone HCl 1 mg 02/23/22 13:56 Hydromorphone Hcl Inj (*Crx) 1 Mg/Ml Syr IV PUSH Q2H PRN Pain Rated 4-6 Hydromorphone HCl 2 mg 02/23/22 13:56 02/23/22 14:14 Hydromorphone Hcl Inj (*Crx) 1 Mg/Ml S
[2022-02-23] MEDS: COLLAGENASE OINT 30 GM TUBE 1 APPLIC TOPICAL (17:03)
[2022-02-23] MEDS: MUPIROCIN 2% OINT 22 GM TUBE 1 APPLIC TOPICAL (17:03)
[2022-02-23] MEDS: SILVERGEL (ELTA) 45 ML 1 APPLIC TOPICAL (17:03)
[2022-02-23] MEDS: INSULIN GLARGINE (*BKC) 100 UNITS/ML 9 UNITS SUB-Q (21:24)
[2022-02-23 21:30] LABS: Glucose Point of Care 295 mg/dl (65-105)
[2022-02-23 21:55] LABS: Vancomycin Trough 11.3 ug/mL (10.0-20.0)
[2022-02-23 22:11] LABS: Amphetamine Screen Urine Negative (Negative); Barbiturate Screen Urine Negative (Negative); Benzodiazepines Screen Urine Positive (Negative); Cannabinoid Screen Urine Negative (Negative); Cocaine Screen Urine Negative (Negative); Methadone Screen Urine Negative (Negative); Opiate Screen Urine Positive (Negative); Phencyclidine Screen Urine Negative (Negative)
[2022-02-23 22:12] LABS: Urine Cotinine NEGATIVE
[2022-02-24] VITALS (14 sets, daily range): BP systolic 130–152; BP diastolic 65–88; PULSE 78–102; RESP 16–20; TEMP 36.6–37.1; O2SAT 90–100
--- NOTE | 2022-02-24 | ECHO_ITS ---
Patient Info Name: Silver Yusuf Age: 61 years : 1960 Gender: Male Ht: 72 in Wt: 194 lbs BSA: 2.13 m2 HR: 95 bpm BP: 147 / 65 mmHg Heart Rhythm: Sinus Rhythm Technical Quality: Fair Exam Date: 02/24/2022 8:34 AM Exam Location: [facility] Pulmonary Patient Status: Inpatient Admit Date: 02/21/2022 Staff Ordering Physician: Destiny Person [employer] Operator: Rosalinda Bhatt RDCS Attending Provider: Destiny Person Referring Physician: Raza CALIXTO; Exam Type: CA echo doppler color flow Study Info Indications Z01.818 - Encounter for other preprocedural examination Complete two-dimensional, color flow and Doppler transthoracic echocardiogram is performed. Summary 1. Complete two-dimensional, color flow and Doppler transthoracic echocardiogram is performed. 2. Left ventricular systolic function is normal, estimated at 55-60%. 3. The left ventricular diastolic function is grade I diastolic dysfunction. 4. Right ventricular systolic function is normal. 5. No significant valvular disease. Left Ventricle Left ventricular chamber dimension is normal. Left ventricular systolic function is normal, estimated at 55-60%. There is no increased left ventricular wall thickness. The left ventricular diastolic function is grade I diastolic dysfunction. Right Ventricle Right ventricular chamber dimension is normal. Right ventricular systolic function is normal. Left Atria Left atrial chamber dimension is normal. Right Atria Right atrial chamber dimension is normal. Atrial Septum Intact interatrial septum visualized by color flow imaging. Aortic Valve The aortic valve is not well visualized. There is no aortic valve stenosis. There is trace aortic valve regurgitation. Pulmonic Valve The pulmonic valve is not well visualized. Mitral Valve The mitral valve has normal leaflets. There is no mitral valve stenosis. There is trace mitral valve regurgitation. Tricuspid Valve The tricuspid valve leaflets are not well visualized. Pericardium/Pleural There is no pericardial effusion. Inferior Vena Cava Normal inferior vena cava with >50% collapse upon inspiration consistent with normal right atrial pressure. Aorta The aortic root size at the sinus of Valsalva is normal. Left Ventricular Outflow Tract Name Value Normal LVOT 2D LVOT Diameter 1.96 cm LVOT Doppler LVOT Peak Gradient 5 mmHg LVOT Mean Gradient 3 mmHg LVOT VTI 27.81 cm LVOT VTI/AV VTI Ratio 0.84 LVOT Stroke Volume 83.86 ml LVOT CO 7.73 l/min LVOT CI 3.64 L/min/m2 Pulmonic Valve Name Value Normal RVOT Doppler RVOT Peak Gradient 3 mmHg
[2022-02-24] MEDS: KCL 30 MEQ/0.9% SOD CHL 1,000 ML 100 ML IV CONT ×2 (02:47→17:19)
[2022-02-24] MEDS: HYDROmorphone HCL INJ (*CRX) 1 MG/ML SYR 2 MG IV PUSH ×3 (02:59→09:50)
[2022-02-24 07:42] LABS: Basophils Absolute Auto 0.1 K/mm3 (0.0-0.1); Basophils Percent Auto 0.2 % (0.2-1.2); Eosinophils Absolute Auto 0.1 K/mm3 (0-0.3); Eosinophils Percent Auto 0.4 % (0-4.4); Hematocrit 34.1 % (42.0-52.0); Hemoglobin 10.9 g/dL (14.0-18.0); Immature Granulocyte Percent A 0.9 % (0-0.5); Lymphocytes Absolute Auto 1.71 K/mm3 (0.9-3.2); Lymphocytes Percent Auto 7.9 % (18.3-44.2); Mean Corpuscular Hemoglobin 26.1 pg (26-34); Mean Corpuscular Volume 81.6 fl (80-100); Mean Platelet Volume 9.2 fl (7.4-10.4); Monocytes Absolute Auto 1.1 K/mm3 (0.1-0.6); Monocytes Percent Auto 5.2 % (2.6-8.5); Neutrophils Absolute Auto 18.4 K/mm3 (1.3-6.7); Neutrophils Percent Auto 85.4 % (45.5-73.1); Platelet Count Result 534 k/mm3 (150-375); Red Blood Count 4.18 M/mm3 (4.6-6.20); Red Cell Distribution Width 14.3 % (11.5-14.5); White Blood Count 21.6 K/mm3 (4.5-10.0)
[2022-02-24 07:49] LABS: Alanine Aminotransferase 17 U/L (6-50); Albumin Level 2.5 g/dL (3.5-5.1); Alkaline Phosphatase 148 U/L (38-126); Anion Gap 10 mmol/L (8-16); Aspartate Amino Transferase 24 U/L (17-59); Bilirubin,Total 0.4 mg/dL (0.2-1.3); Blood Urea Nitrogen 8 mg/dL (9-20); Calcium 7.4 mg/dL (8.4-10.2); Carbon Dioxide 32 mmol/L (22-30); Chloride 93 mmol/L (98-107); Estimated CRCL calculation 122 ml/min; Estimated Glomerular Filt Rate > 60; Glucose 287 mg/dL (65-110); Magnesium 1.4 mg/dL (1.6-2.3); Potassium 3.8 mmol/L (3.4-5.0); Sodium 135 mmol/L (137-145)
[2022-02-24 07:56] LABS: Glucose Point of Care 250 mg/dl (65-105)
[2022-02-24] MEDS: FAMOTIDINE 20 MG TABLET PO ×2 (08:50→21:02)
[2022-02-24] MEDS: NICOTINE (*PBKC) 21 MG PATCH 1 PATCH TRANSDERM (08:50)
[2022-02-24] MEDS: MAGNESIUM SULF 2 GM/WATER 50ML 2 GM/50 ML BAG IVPB (09:46)
--- NOTE | 2022-02-24 09:52 | P.PNIM_ITS ---
Progress Note: A&P Assessment and Plan (1) Sepsis: Qualifiers: Sepsis acute organ dysfunction status: unspecified Sepsis type: sepsis due to unspecified organism Qualified Code(s): A41.9 - Sepsis, unspecified o rganism Code(s): A41.9 - Sepsis, unspecified organism Status: Resolved Assessment and Plan: * Wound cultures are growing MRSA and staph * Blood culture pending, preliminary is negative. * continue antibiotics of vancomycin, cefepime with Flagyl being de-escalated at this time. * Surgery is managing along with medicine. We appreciate the collaboration and co-management. * Pain medicines as needed. * Continue to monitor labs and vital signs. * Continue IV hydration. (2) Wound of right lower extremity: Code(s): S81.801A - Unspecified open wound, right lower leg, initial encounter Status: Acute Assessment and Plan: * See plan above for problem 1. * Venous Dopplers negative for any acute DVT. * Continuing antibiotics as noted above. * Wound consult performed and pt has plan for dressings and treatment for all affected areas. * Will follow recommendations of Dr. Flores. (3) Drug dependence, abuse: Code(s): F19.20 - Other psychoactive substance dependence, uncomplicated Status: Chronic Assessment and Plan: * Prescribed by Negrito Osorio at [facility] in [place], last filled 01/21/22, He received 90 tablets which is a 30 day supply. * I do not have privileges to prescribe Suboxone on my SHAMAR, therefore I will collaborate with my attending to re-order. * Monitoring for signs of withdrawal will be continued, however, as of my exam today he is not showing any signs of withdrawl for this provider. I favor his tachycardia to be secondary to sepsis. * I have coordinated with pharmacy, and they are going to supply pt. with his Suboxone/Naloxone film while here. (4) Hyperglycemia: Code(s): R73.9 - Hyperglycemia, unspecified Status: Acute Assessment and Plan: * HgbA1C is 11.0. * Elevated fasting glucose today signifies he needs better glycemic control. * Increase SSI to high dose * Lantus increased to 13 units today. * hypoglycemia protocol * Accu-Cheks AC and HS * diabetic diet when able to eat post surgery. (5) COPD (chronic obstructive pulmonary disease): Code(s): J44.9 - Chronic obstructive pulmonary disease, unspecified Status: Chronic Assessment and Plan: * not in acute exacerbation. * Continue nebulizer and/or inhaler treatments. * Monitor (6) CHF (congestive heart failure): Code(s): I50.9 - Heart failure, unspecified Status: Chronic Assessment and Plan: * not in acute exacerbation. * Patient currently appears euvolemic. (7) Hyponatremia: Code(s): E87.1 - Hypo-osmolality and hyponatremia Status: Resolved Assessment and Plan: * Resolved (8) Skin lesions, generalized: Code(s): L98.9 - Disorder of the skin and subcutaneous tissue, unspecified Status: Acute Assessment and Plan: * Multiple small areas papular formation have been noted in the genitalia regions and the rectal region. * STI testing is initiated for gonorrhea, chlamydia, herpes and also for syphilis. (9) Bursitis of left elbow: Code(s): M70.32 - Other bursitis of elbow, left elbow Status: Deleted Assessment and Plan: * Orthopedics consulted and pt. will be going to OR today for I&D with Dr. West. * Pt. already on abx appropriate,
--- NOTE | 2022-02-24 09:52 | PM.IMPN ---
Progress Note: A&P Assessment and Plan (1) Sepsis: Qualifiers: Sepsis acute organ dysfunction status: unspecified Sepsis type: sepsis due to unspecified organism Qualified Code(s): A41.9 - Sepsis, unspecified organism Code(s): A41.9 - Sepsis, unspecified organism Status: Resolved Assessment and Plan: Wound cultures are growing MRSA and staph Blood culture pending, preliminary is negative. continue antibiotics of vancomycin, cefepime with Flagyl being de-escalated at this time. Surgery is managing along with medicine. We appreciate the collaboration and co-management. Pain medicines as needed. Continue to monitor labs and vital signs. Continue IV hydration. (2) Wound of right lower extremity: Code(s): S81.801A - Unspecified open wound, right lower leg, initial encounter Status: Acute Assessment and Plan: See plan above for problem 1. Venous Dopplers negative for any acute DVT. Continuing antibiotics as noted above. Wound consult performed and pt has plan for dressings and treatment for all affected areas. Will follow recommendations of Dr. Flores. (3) Drug dependence, abuse: Code(s): F19.20 - Other psychoactive substance dependence, uncomplicated Status: Chronic Assessment and Plan: Prescribed by Negrito Osorio at [facility] in [place], last filled 01/21/22, He received 90 tablets which is a 30 day supply. I do not have privileges to prescribe Suboxone on my SHAMAR, therefore I will collaborate with my attending to re-order. Monitoring for signs of withdrawal will be continued, however, as of my exam today he is not showing any signs of withdrawl for this provider. I favor his tachycardia to be secondary to sepsis. I have coordinated with pharmacy, and they are going to supply pt. with his Suboxone/Naloxone film while here. (4) Hyperglycemia: Code(s): R73.9 - Hyperglycemia, unspecified Status: Acute Assessment and Plan: HgbA1C is 11.0. Elevated fasting glucose today signifies he needs better glycemic control. Increase SSI to high dose Lantus increased to 13 units today. hypoglycemia protocol Accu-Cheks AC and HS diabetic diet when able to eat post surgery. (5) COPD (chronic obstructive pulmonary disease): Code(s): J44.9 - Chronic obstructive pulmonary disease, unspecified Status: Chronic Assessment and Plan: not in acute exacerbation. Continue nebulizer and/or inhaler treatments. Monitor (6) CHF (congestive heart failure): Code(s): I50.9 - Heart failure, unspecified Status: Chronic Assessment and Plan: not in acute exacerbation. Patient currently appears euvolemic. (7) Hyponatremia: Code(s): E87.1 - Hypo-osmolality and hyponatremia Status: Resolved Assessment and Plan: Resolved (8) Skin lesions, generalized: Code(s): L98.9 - Disorder of the skin and subcutaneous tissue, unspecified Status: Acute Assessment and Plan: Multiple small areas papular formation have been noted in the genitalia regions and the rectal region. STI testing is initiated for gonorrhea, chlamydia, herpes and also for syphilis. (9) Bursitis of left elbow: Code(s): M70.32 - Other bursitis of elbow, left elbow Status: Deleted Assessment and Plan: Orthopedics consulted and pt. will be going to OR today for I&D with Dr. West. Pt. already on abx appropriate, and has pain meds. Avoid steroids in this case as his Glucose is still high and we are currently trying to optimize his glycemic control, in addition to needing optimization for healing of his operative wounds in the setting of an acutely edamatous, erythematous and painful bursitis. Time Spent With Patient Time with patient: 15 - 25 minutes Subjective Date/time seen: 02/24/22 09:52 This pt. was examined at the bedside in in
[2022-02-24 11:24] LABS: Glucose Point of Care 205 mg/dl (65-105)
--- NOTE | 2022-02-24 12:00 | PM.PNGS ---
Progress Note: A&P Assessment and Plan (1) Diabetic infection of right foot: Code(s): E11.628 - Type 2 diabetes mellitus with other skin complications; L08.9 - Local infection of the skin and subcutaneous tissue, unspecified Status: Acute Assessment and Plan: Post-op day 2 excisional debridement of the right lower extremity wounds, which are all healing well. Continue local wound care with silver gel and mupirocin ointment dressing changes to the right lower leg and right heel wounds, and Santyl dressing changes for the right dorsal foot and right lower lateral leg wounds. Wound cx growing group A strep and MRSA. Continue IV antibiotics. WBC trending down. Continue using the waffle boot for the right lower extremity. (2) Uncontrolled diabetes mellitus: Qualifiers: Diabetes mellitus type: type 2 Glycemic state: with hyperglycemia Qualified Code(s): E11.65 - Type 2 diabetes mellitus with hyperglycemia Status: Acute Assessment and Plan: Glucose in 200's today. Management per Hospitalist. (3) Septic olecranon bursitis of left elbow: Code(s): M71.122 - Other infective bursitis, left elbow Status: Suspected Assessment and Plan: Ortho is taking the patient to the OR today for drainage and debridement. (4) Drug dependence, abuse: Code(s): F19.20 - Other psychoactive substance dependence, uncomplicated Status: Chronic (5) Smoker: Code(s): F17.200 - Nicotine dependence, unspecified, uncomplicated Status: Chronic (6) COPD (chronic obstructive pulmonary disease): Code(s): J44.9 - Chronic obstructive pulmonary disease, unspecified Status: Chronic Plan I have discussed the patient's case and plan of care with Dr. Flores. Subjective Subjective Date/Time Seen: 02/24/22 12:00 Patient reports: no new complaints and afebrile Interval history: Patient seen and examined with Dr. Flores. No new complaints. He is scheduled to go down to the OR this afternoon for drainage and debridement of his left elbow. Review of Systems Review of Systems: All systems reviewed & are unremarkable except as noted in HPI and below Exam Const: General: comfortable, no acute distress and awake Orientation/consciousness: patient oriented x3 Skin: Other: Right leg dressing removed. Right anterior lower leg wound looks good again today with some granulation tissue forming. Right lower lateral leg has a smaller ulcer with a dry, firm kaba eschar, no odor or purulent drainage. Right dorsal foot with a large open ulcer with tendon exposed that looks good again today with some granulation tissue forming, still a small exudative film in the wound bed but healing well. Right heel ulcer with a small area of kaba slough but overall healing well. Extrem: Left upper extremity: elbow/forearm (erythematous and edematous left elbow with fluctuance) Psych: Insight: Fair insight present (Psych) and Limited insight present (Psych) Objective Data Vital Signs Vital Signs: Vital Signs - 24 hr 02/23/22 16:00 02/23/22 22:00 02/23/22 20:00 Temperature 97.8 F 98.1 F Pulse Rate 105 H 107 H 107 H Respiratory Rate 18 18 18 Blood Pressure 159/76 H 136/95 H Pulse Oximetry 93 99 99 Oxygen Delivery Room Air 02/24/22 06:01 Temperature 98.0 F Pulse Rate 78 Respiratory Rate 18 Blood Pressure 147/65 H Pulse Oximetry 91 Oxygen Delivery Intake/Output Intake/Output: Intake & Output 02/21/22 02/22/22 02/23/22 02/24/22 23:59 23:59 23:59 23:59 Intake Total 3770 3470 5280 1340 Output Total 50 1825 Balance 3770 3470 5230 -485 Meds/Results Medications: Active Medications Generic Name Dose Route Start Last Admin Trade Name Freq PRN Reason Stop Dose Admin Acetaminophen 500 mg 02/22/22 13:21 Acetaminophen 500 Mg Tablet PO Q6H PRN Mild Pain (1-3) or Fever Buprenorphine/Naloxone 2 each 02/24/22 13:00 Buprenorphine Hcl/Naloxone Hcl (*Crx
[2022-02-24] MEDS: HYDROmorphone HCL INJ (*CRX) 1 MG/ML SYR IV PUSH (12:06)
[2022-02-24] MEDS: MUPIROCIN 2% OINT 22 GM TUBE 1 APPLIC TOPICAL (12:35)
[2022-02-24] MEDS: COLLAGENASE OINT 30 GM TUBE 1 APPLIC TOPICAL (12:35)
[2022-02-24] MEDS: SILVERGEL (ELTA) 45 ML 1 APPLIC TOPICAL (12:35)
--- NOTE | 2022-02-24 12:58 | WPDANESEPPF ---
Anes - Initial Pre Proc Eval Procedure: Operation Date: 02/22/22 09:30 Proposed Procedures p I&D Debride Lower Extremity(Right) - Froy Flores MD Operation Date: 02/24/22 13:30 Proposed Procedures p Left Elbow Olecranon Bursa Washout - Tucker West MD Date/Time: 02/24/22 12:58 Surgeon: ARNOLD Peres Pre Op Diagnosis: Sepsis, RLE cellulitis/necrosis,hyponatremia Patient Data Age: 61 Gender: M Height: 1.83 m Weight: 88.3 kg Last Vital Signs Temp 98.0 F 02/24/22 06:01 Pulse 78 02/24/22 06:01 Resp 18 02/24/22 06:01 BP 147/65 H 02/24/22 06:01 Pulse Ox 91 02/24/22 06:01 O2 Del Method Room Air 02/23/22 20:00 O2 Flow Rate 3 02/22/22 12:20 Allergies Allergy/AdvReac Type Severity Reaction Status Date / Time duloxetine Allergy Unknown Unknown Verified 02/20/22 20:17 sulfamethizole Allergy Unknown Unknown Verified 02/20/22 20:17 trimethoprim Allergy Unknown Unknown Verified 02/20/22 20:17 cephalexin AdvReac Unknown Unknown Verified 02/20/22 20:17 Home Medications Medication Instructions Recorded Confirmed Type albuterol sulfate 2.5 mg/3 mL 1 mg inhalation TID PRN Adequate 01/01/22 02/21/22 History (0.083 %) solution for nebulization Ventilation amitriptyline 50 mg tablet 50 mg PO DAILY 01/01/22 02/21/22 History amoxicillin 875 mg tablet 875 mg PO Q12H 7 days #14 tabs 01/01/22 02/21/22 Rx gabapentin 800 mg tablet 800 mg PO TID 01/01/22 02/21/22 History metformin 1,000 mg tablet 1,000 mg PO BID 01/01/22 02/21/22 History Laboratory Tests 02/23/22 02/23/22 02/23/22 16:40 21:07 21:23 WBC RBC Hgb Hct MCV MCH MCHC RDW Plt Count MPV Immature Gran % (Auto) Neut % (Auto) Lymph % (Auto) Tama % (Auto) Eos % (Auto) Baso % (Auto) Lymph # (Auto) Tama # (Auto) Eos # (Auto) Baso # (Auto) Abs Immat Gran (auto) Absolute Neuts (auto) Absolute Nucleated RBC Nucleated RBC % Sodium Potassium Chloride Carbon Dioxide Anion Gap BUN Creatinine Estim Creat Clear Calc Estimated GFR Glucose POC Capillary Glucose 207 mg/dl H mg/dl 295 mg/dl H mg/dl (65-105) (65-105) Calcium Magnesium Total Bilirubin AST ALT Alkaline Phosphatase Total Protein Albumin Vancomycin Trough 11.3 ug/mL ug/mL (10.0-20.0) Cotinine Urine Opiates Screen Urine Methadone Screen Ur Barbiturates Screen Ur Phencyclidine Scrn Ur Amphetamine Screen U Benzodiazepines Scrn Urine Cocaine Screen U Cannabinoids Screen 02/23/22 02/23/22 02/24/22 21:41 21:41 07:08 WBC 21.6 K/mm3 H K/mm3 (4.5-10.0) RBC 4.18 M/mm3 L M/mm3 (4.6-6.20) Hgb 10.9 g/dL L g/dL (14.0-18.0) Hct 34.1 % L % (42.0-52.0) MCV 81.6 fl fl (80-100) MCH 26.1 pg pg (26-34) MCHC 32.0 g/dl g/dl (32-36) RDW 14.3 % % (11.5-14.5) Plt Count 534 k/mm3 H k/mm3 (150-375) MPV 9.2 fl fl (7.4-10.4) Immature Gran % (Auto) 0.9 % H % (0-0.5) Neut % (Auto) 85.4 % H % (45.5-73.1) Lymph % (Auto) 7.9 % L % (18.3-44.2) Tama % (Auto) 5.2 % % (2.6-8.5) Eos % (Auto) 0.4 % % (0-4.4) Baso % (Auto) 0.2 % % (0.2-1.2) Lymph # (Auto) 1.71 K/mm3 K/mm3 (0.9-3.2) Tama # (Auto) 1.1 K/mm3 H K/mm3 (0.1-0.6) Eos # (Auto) 0.1 K/mm3 K
[2022-02-24 13:15] LABS: Glucose Point of Care 204 mg/dl (65-105)
--- NOTE | 2022-02-24 13:21 | WPDHPUPDATE1 ---
History and Physical Update Update Date/Time: 02/24/22 13:21 History and Physical has been reviewed, including an updated exam of the patient. There are NO changes in the patient's condition. Risks, benefits, and alternatives have been discussed and questions answered. Patient agrees to proceed with procedure.
[2022-02-24] MEDS: LACTATED RINGERS 1,000 ML 30 ML IV CONT (13:23)
--- NOTE | 2022-02-24 13:25 | SUR.PREOP ---
1325- Notified Dr. Tavarez patient's BG 204. No orders received at this time.
--- NOTE | 2022-02-24 14:04 | PC.NURSE ---
To OR per bed, IV saline locked. Report given to FARRAH Bobo and FARRAH Yancey at bedside. Kristina Redding RN [phone] 02/24/2022
[2022-02-24] MEDS: BACITRACIN OINTMENT 15 GM TUBE 1 APPLIC TOPICAL (14:59)
[2022-02-24 15:04] LABS: Glucose Point of Care 193 mg/dl (65-105)
--- NOTE | 2022-02-24 15:18 | W.PM.PROC2 ---
Procedure Note - Detailed Date of Procedure 02/24/22 Pre-op Diagnosis Septic left olecranon bursitis Post-op Diagnosis Other ( septic left olecranon bursitis with subcutaneous forearm abscess) Procedure Performed I & D left forearm abscess with drain placement Surgeon Tucker West MD Counter Sales Representative Stephanie Rivas Anesthesia General Indications see consultation note Description of Procedure the patient was identified and proper site identified. He was taken to the operating room and transferred to the OR table placing supine taking care to pad his torso and extremities. After general anesthetic induction and intubation, a nonsterile tourniquet was placed high on the left arm. Left upper extremity was prepped and draped free in the usual sterile fashion. Without exsanguinating the left upper extremity, the tourniquet was inflated to 250 millimeters of mercury remaining up for 18 minutes. A curvilinear incision was made over the olecranon extending distally along the subcutaneous border of the ulna. Length of the incision was 15 centimeters. There was a very large extending from the olecranon into the forearm over the subcutaneous border of the ulna. The distal extent measured about 15 centimeters wide as well. The pus was evacuated and a rongeur was used to remove devitalized tissue. A soft scrub sponge with Betadine and saline was used to scrub the soft tissue surfaces and then any remaining devitalized tissue was removed. Three years of sterile saline with Pulsavac on low were used to wash the wound. Tourniquet was released. Minimal bleeding was noted but there is good vascularity to the wound edges. An 1/8 inch Hemovac was placed deep in the wound taking care not to entrap during the closure. Skin edges reapproximated with 3-0 nylon suture. Sterile dressing was applied and the Hemovac was attached to the collection device. When the surgical drapes were removed after the dressing had been applied, there was a sore that was noted preoperatively that was through the epidermis and dermis over the dorsal distal forearm proximal to the wrist. Although it looked quite clean it was scrubbed with sterile antibacterial soap and then dressed with Neosporin and gauze. We will have the wound nurses take a look at this along with the right leg. He tolerated the procedure well. He was awakened, extubated and taken to recovery area in stable condition. There were no known intraoperative complications. Estimated blood loss was negligible. Estimated Blood Loss -10 Tourniquet Time 18 Urine Output 100 Drains Yes ( 1/8 inch Hemovac) Packing No Pathology None sent Complications No immediate complications Condition Stable Disposition PACU [facility] Billing Surgery - Charge Forward: Surgery Billing ([id number])
[2022-02-24 16:35] LABS: Glucose Point of Care 244 mg/dl (65-105)
[2022-02-24] MEDS: SENNA/DOCUSATE SODIUM TABLET 2 TAB PO (17:22)
[2022-02-24 17:39] LABS: Glucose Point of Care 219 mg/dl (65-105)
[2022-02-24] MEDS: INSULIN ASPART (*BKC) 100 UNITS/ML SUB-Q (17:45)
[2022-02-24] MEDS: oxyCODONE/ACETAMINOPHEN (*CRX) 5-325 MG TABLET 1 TABLET PO (19:19)
[2022-02-24] MEDS: INSULIN GLARGINE (*BKC) 100 UNITS/ML 13 UNITS SUB-Q (21:02)
[2022-02-24 21:13] LABS: Glucose Point of Care 286 mg/dl (65-105)
[2022-02-24 23:48] LABS: Vancomycin Trough 17.8 ug/mL (10.0-20.0)
[2022-02-25] VITALS (8 sets, daily range): BP systolic 123–168; BP diastolic 59–76; PULSE 82–98; RESP 16–22; TEMP 35.9–36.7; O2SAT 91–96
[2022-02-25] MEDS: oxyCODONE/ACETAMINOPHEN (*CRX) 5-325 MG TABLET 1 TABLET PO ×4 (03:18→20:33)
[2022-02-25] MEDS: HYDROmorphone HCL INJ (*CRX) 1 MG/ML SYR 2 MG IV PUSH ×2 (04:30→10:36)
[2022-02-25 06:29] LABS: Basophils Percent Auto 0.3 % (0.2-1.2); Eosinophils Absolute Auto 0.1 K/mm3 (0-0.3); Hematocrit 31.5 % (42.0-52.0); Hemoglobin 9.9 g/dL (14.0-18.0); Immature Granulocyte Absolute 0.16 K/mm3 (0.00-0.031); Immature Granulocyte Percent A 1.2 % (0-0.5); Lymphocytes Absolute Auto 1.81 K/mm3 (0.9-3.2); Lymphocytes Percent Auto 13.2 % (18.3-44.2); Mean Corpuscular HGB Conc 31.4 g/dl (32-36); Mean Corpuscular Hemoglobin 25.9 pg (26-34); Mean Corpuscular Volume 82.5 fl (80-100); Mean Platelet Volume 8.9 fl (7.4-10.4); Monocytes Absolute Auto 0.9 K/mm3 (0.1-0.6); Monocytes Percent Auto 6.9 % (2.6-8.5); Neutrophils Absolute Auto 10.6 K/mm3 (1.3-6.7); Neutrophils Percent Auto 77.4 % (45.5-73.1); Platelet Count Result 512 k/mm3 (150-375); Red Blood Count 3.82 M/mm3 (4.6-6.20); Red Cell Distribution Width 14.6 % (11.5-14.5); White Blood Count 13.7 K/mm3 (4.5-10.0)
[2022-02-25 06:35] LABS: Alanine Aminotransferase 15 U/L (6-50); Albumin Level 2.4 g/dL (3.5-5.1); Alkaline Phosphatase 136 U/L (38-126); Anion Gap 6 mmol/L (8-16); Aspartate Amino Transferase 21 U/L (17-59); Bilirubin,Total 0.3 mg/dL (0.2-1.3); Blood Urea Nitrogen 6 mg/dL (9-20); Calcium 7.3 mg/dL (8.4-10.2); Carbon Dioxide 34 mmol/L (22-30); Chloride 97 mmol/L (98-107); Estimated CRCL calculation 122 ml/min; Estimated Glomerular Filt Rate > 60; Glucose 253 mg/dL (65-110); Magnesium 1.6 mg/dL (1.6-2.3); Potassium 3.9 mmol/L (3.4-5.0); Sodium 137 mmol/L (137-145)
[2022-02-25] MEDS: KCL 30 MEQ/0.9% SOD CHL 1,000 ML 100 ML IV CONT (07:00)
--- NOTE | 2022-02-25 07:51 | WPDANESPN ---
Anes - Prog Note Post-Op Date/Time: 02/25/22 07:51 Cardiovascular status: normal Respiratory status: normal Airway patency: baseline Mental status: baseline Post-Op hydration status: normal Vital Signs: Last Vital Signs Temp 36.7 C 02/25/22 04:30 Pulse 87 02/25/22 04:30 Resp 18 02/25/22 04:30 BP 123/59 L 02/25/22 04:30 Pulse Ox 92 02/25/22 04:30 O2 Del Method Room Air 02/24/22 20:00 O2 Flow Rate 6 02/24/22 15:10 Pain Score (VAS): 0 I/O: Intake & Output 02/24/22 02/24/22 02/25/22 15:59 23:59 07:59 Intake Total 5070 327 3837 Output Total 750 305 650 Balance 350 585 350 Laboratory Tests 02/25/22 06:05 02/25/22 06:05 02/24/22 02/24/22 02/24/22 07:08 07:53 11:18 WBC 21.6 H RBC 4.18 L Hgb 10.9 L Hct 34.1 L MCV 81.6 MCH 26.1 MCHC 32.0 RDW 14.3 Plt Count 534 H MPV 9.2 Immature Gran % (Auto) 0.9 H Neut % (Auto) 85.4 H Lymph % (Auto) 7.9 L Bennett % (Auto) 5.2 Eos % (Auto) 0.4 Baso % (Auto) 0.2 Lymph # (Auto) 1.71 Bennett # (Auto) 1.1 H Eos # (Auto) 0.1 Baso # (Auto) 0.1 Abs Immat Gran (auto) 0.20 H Absolute Neuts (auto) 18.4 H Absolute Nucleated RBC 0.0 Nucleated RBC % 0.0 Sodium Potassium Chloride Carbon Dioxide Anion Gap BUN Creatinine Estim Creat Clear Calc Estimated GFR Glucose POC Capillary Glucose 250 H 205 H Calcium Magnesium Total Bilirubin AST ALT Alkaline Phosphatase Total Protein Albumin Vancomycin Trough 02/24/22 02/24/22 02/24/22 13:09 15:02 16:33 WBC RBC Hgb Hct MCV MCH MCHC RDW Plt Count MPV Immature Gran % (Auto) Neut % (Auto) Lymph % (Auto) Bennett % (Auto) Eos % (Auto) Baso % (Auto) Lymph # (Auto) Bennett # (Auto) Eos # (Auto) Baso # (Auto) Abs Immat Gran (auto) Absolute Neuts (auto) Absolute Nucleated RBC Nucleated RBC % Sodium Potassium Chloride Carbon Dioxide Anion Gap BUN Creatinine Estim Creat Clear Calc Estimated GFR Glucose POC Capillary Glucose 204 H 193 H 244 H Calcium Magnesium Total Bilirubin AST ALT Alkaline Phosphatase Total Protein Albumin Vancomycin Trough 02/24/22 02/24/22 02/24/22 17:37 21:08 22:13 WBC RBC Hgb Hct MCV MCH MCHC RDW Plt Count MPV Immature Gran % (Auto) Neut % (Auto) Lymph % (Auto) Bennett % (Auto) Eos % (Auto) Baso % (Auto) Lymph # (Auto) Bennett # (Auto) Eos # (Auto) Baso # (Auto) Abs Immat Gran (auto) Absolute Neuts (auto) Absolute Nucleated RBC Nucleated RBC % Sodium Potassium Chloride Carbon Dioxide Anion Gap BUN Creatinine Estim Creat Clear Calc Estimated GFR Glucose POC Capillary Glucose 219 H 286 H Calcium Magnesium Total Bilirubin AST ALT Alkaline Phosphatase Total Protein Albumin Vancomycin Trough 17.8 02/25/22 02/25/22 02/25/22 06:05 06:05 07:39 WBC 13.7 H RBC 3.82 L Hgb 9.9 L Hct 31.5 L MCV 82.5 MCH 25.9 L MCHC 31.4 L RDW 14.6 H Plt Count 512 H MPV 8.9 Immature Gran % (Auto) 1.2 H Neut % (Auto) 77.4 H Lymph % (Auto) 13.2 L Bennett % (Auto) 6.9 Eos % (Auto) 1.0 Baso % (Auto) 0.3 Lymph # (Auto) 1.81 Bennett # (Auto) 0.9 H Eos # (Auto) 0.1 Baso # (Auto) 0.0 Abs Immat Gran (auto) 0.16 H Absolute Neuts (auto) 10.6 H Absolute Nucleated RBC 0.0 Nucleated RBC % 0.0 Sodium 137 Potassium 3.9 Chloride 97 L Carbon Dioxide 34 H Anion Gap 6 L BUN 6 L Creatinine 0.60 L Estim Creat Clear Calc 122 Estimated GFR > 60 Glucose 253 H POC Capillary Glucose Pending Calcium 7.3 L Magnesium 1.6 Total Bilirubin 0.3 AST 21 ALT 15 Alkaline P
[2022-02-25 07:52] LABS: Glucose Point of Care 212 mg/dl (65-105)
[2022-02-25] MEDS: INSULIN ASPART (*BKC) 100 UNITS/ML SUB-Q ×3 (08:14→17:03)
[2022-02-25] MEDS: polyethylene glycoL 3350 17 GM POWD.PACK PO (08:55)
[2022-02-25] MEDS: COLLAGENASE OINT 30 GM TUBE 1 APPLIC TOPICAL (08:55)
[2022-02-25] MEDS: ENOXAPARIN 40 MG/0.4 ML SYRINGE SUB-Q (08:56)
[2022-02-25] MEDS: FAMOTIDINE 20 MG TABLET PO ×2 (08:56→20:33)
[2022-02-25] MEDS: SENNA/DOCUSATE SODIUM TABLET 2 TAB PO ×2 (08:56→17:07)
[2022-02-25] MEDS: NICOTINE (*PBKC) 21 MG PATCH 1 PATCH TRANSDERM (08:58)
[2022-02-25] MEDS: MUPIROCIN 2% OINT 22 GM TUBE 1 APPLIC TOPICAL (08:58)
[2022-02-25] MEDS: SILVERGEL (ELTA) 45 ML 1 APPLIC TOPICAL (08:59)
--- NOTE | 2022-02-25 11:22 | PM.PNORT ---
Progress Note: A&P Assessment and Plan (1) Abscess of left forearm: Code(s): L02.414 - Cutaneous abscess of left upper limb Status: Acute (2) Septic olecranon bursitis of left elbow: Code(s): M71.122 - Other infective bursitis, left elbow Status: Suspected Plan 61-year-old male postop day one debridement left elbow and forearm abscess. Overall doing well. Will change dressing tomorrow and remove drain. Currently on antibiotics. Following. Subjective Subjective Date/Time Seen: 02/25/22 11:22 Post Op day: 1 (Status post I&D left forearm abscess) Interval history: 61-year-old male postop day one from surgery on left forearm. Says his left elbow and forearm show good. Minimal drainage into the collection device overnight. Exam Const: General: comfortable Resp: Effort & Inspection: normal respiratory effort GI: Inspection: non-distended Extrem: Other: left elbow dressing dry. Serosanguineous drainage in Hemovac. No pain with manipulation of the elbow. Objective Data Vital Signs Vital Signs: Vital Signs - 24 hr 02/24/22 12:55 02/24/22 14:56 02/24/22 15:55 Temperature 98.1 F 98.0 F Pulse Rate 93 102 H 97 Respiratory Rate 18 18 16 Blood Pressure 152/80 H 138/78 150/76 H Pulse Oximetry 97 99 92 Oxygen Delivery Room Air Simple Face Mask Room Air Oxygen Flow Rate 6 02/24/22 16:10 02/24/22 15:10 02/24/22 15:25 Temperature 98.4 F Pulse Rate 95 99 95 Respiratory Rate 16 20 16 Blood Pressure 134/74 145/88 H 148/75 H Pulse Oximetry 92 99 100 Oxygen Delivery Room Air Simple Face Mask Room Air Oxygen Flow Rate 6 02/24/22 15:40 02/24/22 16:23 02/24/22 16:38 Temperature 98.8 F 98.3 F Pulse Rate 96 84 94 Respiratory Rate 16 18 20 Blood Pressure 141/83 H 143/78 H 136/74 Pulse Oximetry 92 94 91 Oxygen Delivery Room Air Oxygen Flow Rate 02/24/22 17:08 02/24/22 18:08 02/24/22 20:55 Temperature 97.8 F 98.1 F 98.2 F Pulse Rate 96 101 H 99 Respiratory Rate 18 20 18 Blood Pressure 134/65 144/74 H 130/74 Pulse Oximetry 95 93 90 Oxygen Delivery Oxygen Flow Rate 02/24/22 20:00 02/25/22 00:46 02/25/22 04:30 Temperature 97.9 F 98.0 F Pulse Rate 99 98 87 Respiratory Rate 18 18 18 Blood Pressure 137/75 123/59 L Pulse Oximetry 90 91 92 Oxygen Delivery Room Air Oxygen Flow Rate Intake/Output Intake/Output: Intake & Output 02/22/22 02/23/22 02/24/22 02/25/22 23:59 23:59 23:59 23:59 Intake Total 3470 / 3470 5280 / 5280 3230 / 3230 1290 / 1290 Output Total 50 / 50 2580 / 2580 650 / 650 Balance 3470 / 3470 5230 / 5230 650 / 650 640 / 640 Meds/Results Medications: Active Medications Generic Name Dose Route Start Last Admin Trade Name Freq PRN Reason Stop Dose Admin Buprenorphine/Naloxone 2 each 02/24/22 13:00 02/25/22 09:02 Buprenorphine Hcl/Naloxone Hcl (*Crx) 4 Mg/1 Mg Sl Film SUBLINGUAL 2 each TID MARITZA Administration Collagenase 1 applic 02/23/22 09:00 02/25/22 08:55 Collagenase Oint 30 Gm Tube TOPICAL 1 applic QAM MARITZA Administration Dextrose 12.5 gm 02/22/22 10:43 Dextrose 50% 25 Gm/50 Ml Syringe IV PUSH PRN PRN Hypoglycemia Protocol Enoxaparin Sodium 40 mg 02/21/22 09:00 02/25/22 08:56 Enoxaparin 40 Mg/0.4 Ml Syringe SUB-Q 40 mg DAILY MARITZA Administration Famotidine 20 mg 02/22/22 21:00 02/25/22 08:56 Famotidine 20 Mg Tablet PO 20 mg Q12HR MARITZA Administration Glucagon 1 mg 02/22/22 10:43 Glucagon For Inj 1 Mg Vial IM PRN PRN Hypoglycemia Protocol Glucose 15 gm 02/22/22 10:43 Glucose Oral Gel 15 Gm Of Glucse In 37.5 Gm Tube PO PRN PRN Hypoglycemia Protocol Hydromorphone HCl 1 mg 02/23/22 13:56 02/24/22 12:06 Hydromorphone Hcl Inj (*Crx) 1 Mg/Ml Syr IV PUSH 1 mg Q2H PRN Administration Pain Rated 4-6 Hydromorphone HCl 2 mg 02/23/22 13:56 02/25/22 10:36 Hydromorphone Hcl Inj (*Crx) 1 Mg/Ml Syr IV
[2022-02-25 11:34] LABS: Glucose Point of Care 280 mg/dl (65-105)
--- NOTE | 2022-02-25 13:47 | PM.PNGS ---
Progress Note: A&P Assessment and Plan (1) Diabetic infection of right foot: Code(s): E11.628 - Type 2 diabetes mellitus with other skin complications; L08.9 - Local infection of the skin and subcutaneous tissue, unspecified Status: Acute Assessment and Plan: Post-op day 3 excisional debridement of the right lower extremity wounds. His wounds and the surrounding skin on his foot appear to be healing well. The dorsal foot wound did have a small amount of purulent drainage from a small area of tunneling at the distal aspect of the wound towards the 1st toe. This was drained when probed and did not appear to extend further. Will continue local wound care for now and reassess the wounds again tomorrow. Continue IV antibiotics. Continue using the waffle boot for the right lower extremity. (2) Uncontrolled diabetes mellitus: Qualifiers: Diabetes mellitus type: type 2 Glycemic state: with hyperglycemia Qualified Code(s): E11.65 - Type 2 diabetes mellitus with hyperglycemia Status: Acute Assessment and Plan: Glucose in 200's today. Management per Hospitalist. (3) Septic olecranon bursitis of left elbow: Code(s): M71.122 - Other infective bursitis, left elbow Status: Suspected Assessment and Plan: S/p I&D left forearm abscess with drain placement by Ortho yesterday. Continue IV antibiotics. (4) Drug dependence, abuse: Code(s): F19.20 - Other psychoactive substance dependence, uncomplicated Status: Chronic (5) Smoker: Code(s): F17.200 - Nicotine dependence, unspecified, uncomplicated Status: Chronic (6) COPD (chronic obstructive pulmonary disease): Code(s): J44.9 - Chronic obstructive pulmonary disease, unspecified Status: Chronic Plan I have discussed the patient's case and plan of care with Dr. Flores. Subjective Subjective Date/Time Seen: 02/25/22 11:07 Patient reports: no new complaints and afebrile Interval history: Patient seen and examined with nursing at the bedside. No acute events overnight. No new complaints. Review of Systems Review of Systems: All systems reviewed & are unremarkable except as noted in HPI and below Exam Const: General: no acute distress and awake Orientation/consciousness: patient oriented x3 Skin: Other: Right leg dressing removed. Right anterior lower leg wound continues to heal well with granulation tissue forming and surrounding skin improving with less erythema. Right lower lateral leg has a smaller ulcer with a dry, firm kaba eschar, unchanged, appears stable. Right dorsal foot with a large open ulcer with tendon exposed. There are new areas of some granulation tissue forming, although some kaba drainage noted at the more distal aspect of the wound on the dressing. There is a 0.5 cm kaba eschar noted at the distal edge of the wound between the 2nd-3rd metatarsal with purulent drainage, when probing this area it does tunnel about 1.5 cm towards the 1st toe with a small pocket of pus that was drained with probing. Overall, surrounding skin of the foot is much improved with no erythema and less edema. Right heel ulcer with a small area of kaba slough but overall healing well. Psych: Insight: Fair insight present (Psych) and Limited insight present (Psych) Objective Data Vital Signs Vital Signs: Vital Signs - 24 hr 02/24/22 14:56 02/24/22 15:55 02/24/22 16:10 Temperature 98.0 F 98.4 F Pulse Rate 102 H 97 95 Respiratory Rate 18 16 16 Blood Pressure 138/78 150/76 H 134/74 Pulse Oximetry 99 92 92 Oxygen Delivery Simple Face Mask Room Air Room Air Oxygen Flow Rate 6 02/24/22 15:10 02/24/22 15:25 02/24/22 15:40 Temperature Pulse Rate 99 95 96 Respiratory Rate 20 16 16 Blood Pressure 145/88 H 148/75 H 141/83 H Pulse Oximetry 99 100 92 Oxygen Delivery Simple Face Mask Room Air Room Air Oxygen Flow Rate 6 02/24/22 16:23 02/24/22 16:38 02/24/22 17:08 Temperature 98.8 F 98.3
--- NOTE | 2022-02-25 14:14 | PM.IMPN ---
Progress Note: A&P Assessment and Plan (1) Sepsis: Qualifiers: Sepsis acute organ dysfunction status: unspecified Sepsis type: sepsis due to unspecified organism Qualified Code(s): A41.9 - Sepsis, unspecified organism Code(s): A41.9 - Sepsis, unspecified organism Status: Resolved Assessment and Plan: On admission, BP 93/63, HR 96, spO2 86% room air, WBC 29, lactic acid 3.2 with infected diabetic foot ulceration Continue IV antibiotics. Monitor hemodynamics. Lactic acid improved with antibiotic therapy and fluid resuscitation. 02/20/22 Blood cultures negative to date. Wound cultures as below. (2) Wound of right lower extremity: Code(s): S81.801A - Unspecified open wound, right lower leg, initial encounter Status: Acute Assessment and Plan: Right foot full-thickness ulceration status post I&D on 02/23 with General surgery Wound cultures showing MRSA and group a strep. patient initiated on IV vancomycin, IV cefepime, IV Flagyl upon admission on 02/20/2022 02/24/2022 Flagyl stopped and IV vancomycin and IV cefepime continued 02/25/2022 case discussed with ID pharmacist and vancomycin appropriate monotherapy for MRSA and group a strep at this time. Cefepime stopped. Patient will likely need approximately 2 weeks of antibiotic therapy. We will continue IV secondary to septic bursitis as below and adjust to oral pending ortho recommendations. 02/21 Venous Dopplers negative for any acute DVT. Wound care consulted patient receiving daily dressing changes with silver gel and santyl general surgery managing wound care will consult dietitian for nutritional assessment and optimal wound healing (3) Abscess of left forearm: Code(s): L02.414 - Cutaneous abscess of left upper limb Status: Acute Assessment and Plan: patient with concern for septic olecranon bursitis more and forearm abscess. S/p I&D left forearm abscess with drain placement on 02/24/2022 With orthopedics it does not appear OR cultures were sent, but organisms likely this a.m. as isolated from right foot wound. Continue IV vancomycin with pharmacy to dose. Patient will likely need 2-4 weeks of antibiotic therapy. Will defer to Orthopedics regarding length of IV antibiotics needed and when can transition to oral antibiotics. Patient requiring frequent IV changes for infiltration. PICC line ordered for inpatient IV antibiotic therapy. It is strongly recommended patient not be discharged on IV antibiotics and central line given his history of IV drug use. (4) Septic olecranon bursitis of left elbow: Code(s): M71.122 - Other infective bursitis, left elbow Status: Suspected Assessment and Plan: As above. (5) Uncontrolled diabetes mellitus: Qualifiers: Diabetes mellitus type: type 2 Glycemic state: with hyperglycemia Qualified Code(s): E11.65 - Type 2 diabetes mellitus with hyperglycemia Status: Chronic Assessment and Plan: chronic, uncontrolled. Patient was taking metformin 1000 mg b.i.d. outpatient. He he reports not checking his blood sugars routinely. HgbA1C is 11.0% Patient started on basal bolus insulin therapy while inpatient. He reports today he would consider continuation of insulin therapy with Education if needed. Fasting glucose 253 this a.m. and preprandial range 212 to 280. Patient Lantus dose increased to 13 units at HS on 02/24/2022 will continue this dose currently and increase in 1-2 days if fasting glucose remains greater than 200 Accu-Cheks a.c. HS with continue high-dose aspart sliding scale insulin with meals. Continue hypoglycemia protocol consistent carb diet consult life educator for further assistance with management Resume gabapentin (6) Drug dependence, abuse: Code(s): F19.20 - Other psychoactive substance dependence, uncomplicated Status: Chronic Assessment and Plan: Chance
[2022-02-25] MEDS: LIDOCAINE HCL 1% PF INJ 5 ML VIAL INFILTRATE (14:45)
--- NOTE | 2022-02-25 15:40 | PCPTNOTE ---
Spoke with Dr. West regarding weight bearing status of L UE. Per Dr. West, pt can NOT lean onto/place weight through L elbow, but can use L UE for walker use. RN aware.
[2022-02-25 16:36] LABS: Glucose Point of Care 234 mg/dl (65-105)
[2022-02-25] MEDS: GABAPENTIN 400 MG CAPSULE 800 MG PO ×2 (16:50→20:34)
[2022-02-25] MEDS: AMITRIPTYLINE HCL 25 MG TABLET 50 MG PO (20:34)
[2022-02-25] MEDS: INSULIN GLARGINE (*BKC) 100 UNITS/ML 13 UNITS SUB-Q (20:35)
[2022-02-25] MEDS: CENTRAL LINE FLUSH 10 ML IV PUSH (20:38)
[2022-02-25] MEDS: ALBUTEROL SULFATE NEB 2.5 MG/3 ML INH INHALATION (20:46)
[2022-02-25] MEDS: IPRATROPIUM BR 0.02% INH SOLN 0.5 MG/2.5 ML VIAL INHALATION (20:47)
[2022-02-26] VITALS (9 sets, daily range): BP systolic 153–181; BP diastolic 69–96; PULSE 80–97; RESP 18; TEMP 35.5–36.6; O2SAT 93–95; BMI 26.4
[2022-02-26] MEDS: IPRATROPIUM BR 0.02% INH SOLN 0.5 MG/2.5 ML VIAL INHALATION ×4 (03:24→21:35)
[2022-02-26] MEDS: ALBUTEROL SULFATE NEB 2.5 MG/3 ML INH INHALATION ×4 (03:24→21:35)
[2022-02-26 05:40] LABS: Basophils Percent Auto 0.2 % (0.2-1.2); Eosinophils Absolute Auto 0.1 K/mm3 (0-0.3); Eosinophils Percent Auto 1.5 % (0-4.4); Hemoglobin 9.9 g/dL (14.0-18.0); Immature Granulocyte Absolute 0.16 K/mm3 (0.00-0.031); Immature Granulocyte Percent A 1.9 % (0-0.5); Lymphocytes Absolute Auto 1.88 K/mm3 (0.9-3.2); Lymphocytes Percent Auto 22.2 % (18.3-44.2); Mean Corpuscular HGB Conc 30.9 g/dl (32-36); Mean Corpuscular Hemoglobin 26.5 pg (26-34); Mean Corpuscular Volume 85.8 fl (80-100); Mean Platelet Volume 8.9 fl (7.4-10.4); Monocytes Absolute Auto 0.6 K/mm3 (0.1-0.6); Neutrophils Absolute Auto 5.7 K/mm3 (1.3-6.7); Neutrophils Percent Auto 67.2 % (45.5-73.1); Platelet Count Result 459 k/mm3 (150-375); Red Blood Count 3.73 M/mm3 (4.6-6.20); Red Cell Distribution Width 14.7 % (11.5-14.5); White Blood Count 8.5 K/mm3 (4.5-10.0)
[2022-02-26] MEDS: GABAPENTIN 400 MG CAPSULE 800 MG PO ×3 (05:41→21:02)
[2022-02-26] MEDS: CENTRAL LINE FLUSH 10 ML IV PUSH ×3 (05:41→21:02)
[2022-02-26 05:46] LABS: Anion Gap 5 mmol/L (8-16); Blood Urea Nitrogen 9 mg/dL (9-20); Calcium 7.3 mg/dL (8.4-10.2); Carbon Dioxide 35 mmol/L (22-30); Chloride 95 mmol/L (98-107); Estimated CRCL calculation 122 ml/min; Estimated Glomerular Filt Rate > 60; Glucose 279 mg/dL (65-110); Potassium 4.3 mmol/L (3.4-5.0); Sodium 135 mmol/L (137-145)
--- NOTE | 2022-02-26 06:49 | PM.PNORT ---
Progress Note: A&P Assessment and Plan (1) Abscess of left forearm: Code(s): L02.414 - Cutaneous abscess of left upper limb Status: Acute (2) Septic olecranon bursitis of left elbow: Code(s): M71.122 - Other infective bursitis, left elbow Status: Suspected Plan Will implement q.o.d. dressing changes starting with this morning. Next dressing change will be Wednesday. Sutures will need to stay in for a minimum of 14 days. Importance of not leaning on the left forearm incision was reinforced with this patient. Following. Subjective Subjective Date/Time Seen: 02/26/22 06:49 Post Op day: 2 Interval history: Postop day two status post I and D left olecranon bursitis and forearm abscess. Having really no discomfort in the left upper extremity. Virtually no drainage collected in the drain. Exam Const: General: comfortable Resp: Effort & Inspection: normal respiratory effort Cardio: Rate: regular rate Rhythm: regular rhythm GI: Inspection: non-distended Extrem: Other: Drain removed from left upper extremity. Had serous drainage in it with no purulence. Very little collected. Dressing changed. Wound edges are well apposed and dry. Virtually no erythema noted in the forearm at this point. Grossly motor and sensory function intact left upper extremity. Objective Data Vital Signs Vital Signs: Vital Signs - 24 hr 02/25/22 08:55 02/25/22 14:08 02/25/22 15:42 Temperature 97.6 F Pulse Rate 82 Respiratory Rate 16 Blood Pressure 153/76 H Pulse Oximetry 95 Oxygen Delivery Room Air Room Air 02/25/22 20:40 02/25/22 20:55 02/25/22 20:00 Temperature Pulse Rate 90 95 95 Respiratory Rate 22 H 20 20 Blood Pressure Pulse Oximetry 95 Oxygen Delivery Room Air 02/25/22 22:00 02/25/22 21:05 02/26/22 03:25 Temperature 96.7 F L Pulse Rate 91 96 88 Respiratory Rate 18 20 18 Blood Pressure 168/61 H Pulse Oximetry 96 Oxygen Delivery 02/26/22 06:00 Temperature 95.9 F L Pulse Rate 87 Respiratory Rate 18 Blood Pressure 181/69 H Pulse Oximetry 94 Oxygen Delivery Intake/Output Intake/Output: Intake & Output 02/23/22 02/24/22 02/25/22 02/26/22 23:59 23:59 23:59 23:59 Intake Total 5280 / 5280 3230 / 3230 3130 / 3130 300 / 300 Output Total 50 / 50 2580 / 2580 800 / 800 300 / 300 Balance 5230 / 5230 650 / 650 2330 / 2330 0 / 0 Meds/Results Medications: Active Medications Generic Name Dose Route Start Last Admin Trade Name Freq PRN Reason Stop Dose Admin Albuterol 2.5 mg 02/25/22 14:00 02/26/22 03:24 Albuterol Sulfate Neb 2.5 Mg/3 Ml Inh INHALATION 2.5 mg Q6HRT MARITZA Administration Amitriptyline HCl 50 mg 02/25/22 21:00 02/25/22 20:34 Amitriptyline Hcl 25 Mg Tablet PO 50 mg HS MARITZA Administration Buprenorphine/Naloxone 2 each 02/24/22 13:00 02/25/22 18:36 Buprenorphine Hcl/Naloxone Hcl (*Crx) 4 Mg/1 Mg Sl Film SUBLINGUAL 2 each TID MARITZA Administration Collagenase 1 applic 02/23/22 09:00 02/25/22 08:55 Collagenase Oint 30 Gm Tube TOPICAL 1 applic QAM MARITZA Administration Dextrose 12.5 gm 02/22/22 10:43 Dextrose 50% 25 Gm/50 Ml Syringe IV PUSH PRN PRN Hypoglycemia Protocol Enoxaparin Sodium 40 mg 02/21/22 09:00 02/25/22 08:56 Enoxaparin 40 Mg/0.4 Ml Syringe SUB-Q 40 mg DAILY MARITZA Administration Famotidine 20 mg 02/22/22 21:00 02/25/22 20:33 Famotidine 20 Mg Tablet PO 20 mg Q12HR MARITZA Administration Gabapentin 800 mg 02/25/22 14:00 02/26/22 05:41 Gabapentin 400 Mg Capsule PO 800 mg Q8HR MARITZA Administration Glucagon 1 mg 02/22/22 10:43 Glucagon For Inj 1 Mg Vial IM PRN PRN Hypoglycemia Protocol Glucose 15 gm 02/22/22 10:43 Glucose Oral Gel 15 Gm Of Glucse In 37.5 Gm Tube PO PRN PRN Hypoglycemia Protocol Hydromorphone HCl 1 mg 02/23/22 13:56 02/24/22 12:06 Hydromorphone Hcl Inj (*Crx) 1 Mg/M
[2022-02-26 07:46] LABS: Glucose Point of Care 222 mg/dl (65-105)
[2022-02-26] MEDS: INSULIN ASPART (*BKC) 100 UNITS/ML SUB-Q ×5 (08:12→16:36)
[2022-02-26] MEDS: MUPIROCIN 2% OINT 22 GM TUBE 1 APPLIC TOPICAL (08:15)
[2022-02-26] MEDS: SILVERGEL (ELTA) 45 ML 1 APPLIC TOPICAL (08:15)
[2022-02-26] MEDS: COLLAGENASE OINT 30 GM TUBE 1 APPLIC TOPICAL (08:15)
[2022-02-26] MEDS: NICOTINE (*PBKC) 21 MG PATCH 1 PATCH TRANSDERM (08:17)
[2022-02-26] MEDS: SENNA/DOCUSATE SODIUM TABLET 2 TAB PO ×2 (08:18→16:39)
[2022-02-26] MEDS: ENOXAPARIN 40 MG/0.4 ML SYRINGE SUB-Q (08:18)
[2022-02-26] MEDS: FAMOTIDINE 20 MG TABLET PO ×2 (08:18→20:56)
--- NOTE | 2022-02-26 08:21 | PM.IMPN ---
Progress Note: A&P Assessment and Plan (1) Sepsis: Qualifiers: Sepsis acute organ dysfunction status: unspecified Sepsis type: sepsis due to unspecified organism Qualified Code(s): A41.9 - Sepsis, unspecified organism Code(s): A41.9 - Sepsis, unspecified organism Status: Resolved Assessment and Plan: On admission, BP 93/63, HR 96, spO2 86% room air, WBC 29, lactic acid 3.2 with infected diabetic foot ulceration Continue IV antibiotics. Monitor hemodynamics. Lactic acid improved with antibiotic therapy and fluid resuscitation. 02/20/22 Blood cultures negative to date. Wound cultures as below. (2) Wound of right lower extremity: Qualifiers: Encounter type: initial encounter Qualified Code(s): S81.801A - Unspecified open wound, right lower leg, initial encounter Code(s): S81.801A - Unspecified open wound, right lower leg, initial encounter Status: Acute Assessment and Plan: Right foot full-thickness ulceration status post I&D on 02/23 with General surgery Wound cultures showing MRSA and group a strep. patient initiated on IV vancomycin, IV cefepime, IV Flagyl upon admission on 02/20/2022 02/24/2022 Flagyl stopped and IV vancomycin and IV cefepime continued 02/25/2022 case discussed with ID pharmacist and vancomycin appropriate monotherapy for MRSA and group a strep at this time. Cefepime stopped. Patient will likely need approximately 2 weeks of antibiotic therapy. We will continue IV secondary to septic bursitis as below and adjust to oral pending ortho recommendations. 02/21 Venous Dopplers negative for any acute DVT. Wound care consulted patient receiving daily dressing changes with silver gel and santyl general surgery managing wound care will consult dietitian for nutritional assessment and optimal wound healing (3) Necrotizing soft tissue infection: Code(s): M79.89 - Other specified soft tissue disorders Status: Acute Assessment and Plan: as above. (4) Abscess of left forearm: Code(s): L02.414 - Cutaneous abscess of left upper limb Status: Acute Assessment and Plan: patient with concern for septic olecranon bursitis more and forearm abscess. S/p I&D left forearm abscess with drain placement on 02/24/2022 With orthopedics it does not appear OR cultures were sent, but organisms likely this a.m. as isolated from right foot wound. Continue IV vancomycin with pharmacy to dose. Patient will likely need 2-4 weeks of antibiotic therapy. Will defer to Orthopedics regarding length of IV antibiotics needed and when can transition to oral antibiotics. Patient requiring frequent IV changes for infiltration. PICC line ordered for inpatient IV antibiotic therapy. It is strongly recommended patient not be discharged on IV antibiotics and central line given his history of IV drug use. (5) Septic olecranon bursitis of left elbow: Code(s): M71.122 - Other infective bursitis, left elbow Status: Suspected Assessment and Plan: As above. (6) Uncontrolled diabetes mellitus: Qualifiers: Diabetes mellitus type: type 2 Glycemic state: with hyperglycemia Qualified Code(s): E11.65 - Type 2 diabetes mellitus with hyperglycemia Status: Chronic Assessment and Plan: chronic, uncontrolled. Patient was taking metformin 1000 mg b.i.d. outpatient. He he reports not checking his blood sugars routinely. HgbA1C is 11.0% Patient started on basal bolus insulin therapy while inpatient. He reports today he would consider continuation of insulin therapy with Education if needed. 02/25/22 Fasting glucose 253 this a.m. and preprandial range 212 to 280. Patient Lantus dose increased to 13 units at HS on 02/24/2022 will continue this dose currently and increase in 1-2 days if fasting glucose remains greater than 200 Accu-Cheks a.c. HS with continue high-dose aspart sliding scale insulin
--- NOTE | 2022-02-26 08:22 | PCOTNOTE ---
Began Occupational Therapy Evaluation. Surgeon entered for dressing change with nursing. Will return to evaluation when pt. available
[2022-02-26] MEDS: HYDROmorphone HCL INJ (*CRX) 1 MG/ML SYR 2 MG IV PUSH (08:26)
--- NOTE | 2022-02-26 09:06 | PM.PNGS ---
Progress Note: A&P Assessment and Plan (1) Wound of right lower extremity: Code(s): S81.801A - Unspecified open wound, right lower leg, initial encounter Status: Acute Assessment and Plan: responding well to present wound care. Continue daily dressing changes as before. (2) Necrotizing soft tissue infection: Code(s): M79.89 - Other specified soft tissue disorders Status: Acute Assessment and Plan: Greatly improved after debridement. Continue antibiotics (3) Drug dependence, abuse: Code(s): F19.20 - Other psychoactive substance dependence, uncomplicated Status: Chronic Assessment and Plan: wound of foot secondary to complication of drug injection. Has several wounds on hands also a consequence although not currently infected. Subjective Subjective Date/Time Seen: 02/26/22 09:06 Patient reports: no new complaints Exam Extrem: Left lower extremity: lower leg ( Responding well to local care, healing nicely) and foot ( open wound starting to granulate. No purulent fluid near the toes today) Objective Data Vital Signs Vital Signs: Vital Signs - 24 hr 02/25/22 14:08 02/25/22 15:42 02/25/22 20:40 Temperature 36.4 C Pulse Rate 82 90 Respiratory Rate 16 22 H Blood Pressure 153/76 H Pulse Oximetry 95 Oxygen Delivery Room Air 02/25/22 20:55 02/25/22 20:00 02/25/22 22:00 Temperature 35.9 C L Pulse Rate 95 95 91 Respiratory Rate 20 20 18 Blood Pressure 168/61 H Pulse Oximetry 95 96 Oxygen Delivery Room Air 02/25/22 21:05 02/26/22 03:25 02/26/22 06:00 Temperature 35.5 C L Pulse Rate 96 88 87 Respiratory Rate 20 18 18 Blood Pressure 181/69 H Pulse Oximetry 94 Oxygen Delivery 02/26/22 07:55 Temperature Pulse Rate 83 Respiratory Rate 18 Blood Pressure Pulse Oximetry Oxygen Delivery Intake/Output Intake/Output: Intake & Output 02/23/22 02/24/22 02/25/22 02/26/22 23:59 23:59 23:59 23:59 Intake Total 5280 3230 3130 800 Output Total 50 2580 800 300 Balance 5230 650 2330 500 Meds/Results Medications: Active Medications Generic Name Dose Route Start Last Admin Trade Name Freq PRN Reason Stop Dose Admin Albuterol 2.5 mg 02/25/22 14:00 02/26/22 07:54 Albuterol Sulfate Neb 2.5 Mg/3 Ml Inh INHALATION 2.5 mg Q6HRT MARITZA Administration Amitriptyline HCl 50 mg 02/25/22 21:00 02/25/22 20:34 Amitriptyline Hcl 25 Mg Tablet PO 50 mg HS MARITZA Administration Buprenorphine/Naloxone 2 each 02/24/22 13:00 02/26/22 08:15 Buprenorphine Hcl/Naloxone Hcl (*Crx) 4 Mg/1 Mg Sl Film SUBLINGUAL 2 each TID MARITZA Administration Collagenase 1 applic 02/23/22 09:00 02/26/22 08:15 Collagenase Oint 30 Gm Tube TOPICAL 1 applic QAM MARITZA Administration Dextrose 12.5 gm 02/22/22 10:43 Dextrose 50% 25 Gm/50 Ml Syringe IV PUSH PRN PRN Hypoglycemia Protocol Enoxaparin Sodium 40 mg 02/21/22 09:00 02/26/22 08:18 Enoxaparin 40 Mg/0.4 Ml Syringe SUB-Q 40 mg DAILY MARITZA Administration Famotidine 20 mg 02/22/22 21:00 02/26/22 08:18 Famotidine 20 Mg Tablet PO 20 mg Q12HR MARITZA Administration Gabapentin 800 mg 02/25/22 14:00 02/26/22 05:41 Gabapentin 400 Mg Capsule PO 800 mg Q8HR MARITZA Administration Glucagon 1 mg 02/22/22 10:43 Glucagon For Inj 1 Mg Vial IM PRN PRN Hypoglycemia Protocol Glucose 15 gm 02/22/22 10:43 Glucose Oral Gel 15 Gm Of Glucse In 37.5 Gm Tube PO PRN PRN Hypoglycemia Protocol Hydromorphone HCl 1 mg 02/23/22 13:56 02/24/22 12:06 Hydromorphone Hcl Inj (*Crx) 1 Mg/Ml Syr IV PUSH 1 mg Q2H PRN Administration Pain Rated 4-6 Hydromorphone HCl 2 mg 02/23/22 13:56 02/26/22 08:26 Hydromorphone Hcl Inj (*Crx) 1 Mg/Ml Syr IV PUSH 2 mg Q2H PRN Administration Pain Rated 7-10 Dextrose 1,000 mls @ 100 mls/hr 02/22/22 10:43 Dextrose 5% 1,000 Ml IVPB PRN P
[2022-02-26] MEDS: LOSARTAN POTASSIUM 50 MG TABLET PO (09:59)
[2022-02-26] MEDS: polyethylene glycoL 3350 17 GM POWD.PACK PO (10:03)
[2022-02-26 11:22] LABS: Glucose Point of Care 331 mg/dl (65-105)
--- NOTE | 2022-02-26 12:12 | PCNSR ---
On 02/26/22, the student,Delmer Wells, provided care and completed [facility] documentation on this patient. I have reviewed the student's documentation and agree with the findings.
--- NOTE | 2022-02-26 14:38 | PCPTNOTE ---
Patient refused treatment this session due to pain at a 12/10. RN aware.
[2022-02-26] MEDS: oxyCODONE/ACETAMINOPHEN (*CRX) 5-325 MG TABLET 1 TABLET PO (14:45)
[2022-02-26 16:35] LABS: Glucose Point of Care 278 mg/dl (65-105)
[2022-02-26] MEDS: AMITRIPTYLINE HCL 25 MG TABLET 50 MG PO (20:56)
[2022-02-26] MEDS: INSULIN GLARGINE (*BKC) 100 UNITS/ML 16 UNITS SUB-Q (20:57)
[2022-02-26 21:47] LABS: Glucose Point of Care 235 mg/dl (65-105)
[2022-02-27] VITALS (9 sets, daily range): BP systolic 126–162; BP diastolic 58–74; PULSE 99–117; RESP 16–24; TEMP 36.2–36.3; O2SAT 92–94
[2022-02-27 00:12] LABS: Vancomycin Trough 19.9 ug/mL (10.0-20.0)
[2022-02-27] MEDS: ALTEPLASE 2 MG VIAL (CATHFLO) IV PUSH (03:39)
[2022-02-27 04:28] LABS: Basophils Absolute Auto 0.1 K/mm3 (0.0-0.1); Basophils Percent Auto 0.4 % (0.2-1.2); Eosinophils Absolute Auto 0.1 K/mm3 (0-0.3); Eosinophils Percent Auto 0.9 % (0-4.4); Hematocrit 34.2 % (42.0-52.0); Hemoglobin 10.6 g/dL (14.0-18.0); Immature Granulocyte Absolute 0.14 K/mm3 (0.00-0.031); Immature Granulocyte Percent A 1.1 % (0-0.5); Lymphocytes Absolute Auto 1.89 K/mm3 (0.9-3.2); Lymphocytes Percent Auto 14.5 % (18.3-44.2); Mean Corpuscular Hemoglobin 26.1 pg (26-34); Mean Corpuscular Volume 84.2 fl (80-100); Mean Platelet Volume 8.7 fl (7.4-10.4); Monocytes Absolute Auto 0.8 K/mm3 (0.1-0.6); Monocytes Percent Auto 6.5 % (2.6-8.5); Neutrophils Percent Auto 76.6 % (45.5-73.1); Platelet Count Result 490 k/mm3 (150-375); Red Blood Count 4.06 M/mm3 (4.6-6.20); Red Cell Distribution Width 14.9 % (11.5-14.5)
[2022-02-27 04:45] LABS: Anion Gap 2 mmol/L (8-16); Blood Urea Nitrogen 9 mg/dL (9-20); Calcium 7.4 mg/dL (8.4-10.2); Carbon Dioxide 33 mmol/L (22-30); Chloride 89 mmol/L (98-107); Estimated CRCL calculation 122 ml/min; Estimated Glomerular Filt Rate > 60; Glucose 321 mg/dL (65-110); Sodium 124 mmol/L (137-145)
[2022-02-27] MEDS: GABAPENTIN 400 MG CAPSULE 800 MG PO ×3 (05:12→20:57)
[2022-02-27] MEDS: CENTRAL LINE FLUSH 10 ML IV PUSH ×3 (05:12→20:58)
[2022-02-27 06:23] LABS: Blood Urea Nitrogen 9 mg/dL (9-20); Calcium 7.8 mg/dL (8.4-10.2); Carbon Dioxide 32 mmol/L (22-30); Chloride 90 mmol/L (98-107); Estimated CRCL calculation 122 ml/min; Estimated Glomerular Filt Rate > 60; Glucose 261 mg/dL (65-110); Potassium 4.5 mmol/L (3.4-5.0)
[2022-02-27 06:36] LABS: Anion Gap 5 mmol/L (8-16); Sodium 127 mmol/L (137-145)
[2022-02-27 07:59] LABS: Glucose Point of Care 237 mg/dl (65-105)
[2022-02-27] MEDS: ALBUTEROL SULFATE NEB 2.5 MG/3 ML INH INHALATION ×3 (08:31→20:50)
[2022-02-27] MEDS: IPRATROPIUM BR 0.02% INH SOLN 0.5 MG/2.5 ML VIAL INHALATION ×3 (08:31→20:50)
[2022-02-27] MEDS: INSULIN ASPART (*BKC) 100 UNITS/ML SUB-Q ×3 (09:08→12:11)
[2022-02-27] MEDS: LIDOCAINE 5% PATCH 1 PATCH TRANSDERM (09:14)
[2022-02-27] MEDS: NICOTINE (*PBKC) 21 MG PATCH 1 PATCH TRANSDERM (09:15)
[2022-02-27] MEDS: polyethylene glycoL 3350 17 GM POWD.PACK PO (09:18)
[2022-02-27] MEDS: FAMOTIDINE 20 MG TABLET PO ×2 (09:19→20:56)
[2022-02-27] MEDS: SENNA/DOCUSATE SODIUM TABLET 2 TAB PO (09:19)
[2022-02-27] MEDS: LOSARTAN POTASSIUM 50 MG TABLET PO (09:19)
[2022-02-27] MEDS: ENOXAPARIN 40 MG/0.4 ML SYRINGE SUB-Q (09:20)
[2022-02-27] MEDS: COLLAGENASE OINT 30 GM TUBE 1 APPLIC TOPICAL (09:25)
[2022-02-27] MEDS: SILVERGEL (ELTA) 45 ML 1 APPLIC TOPICAL (09:25)
[2022-02-27] MEDS: MUPIROCIN 2% OINT 22 GM TUBE 1 APPLIC TOPICAL (09:26)
[2022-02-27] MEDS: VANCOMYCIN HCL 1,500 MG in SODIUM CHLORIDE 0.9% IV 500 ML 333.33 MG IVPB ×2 (09:55→17:39)
--- NOTE | 2022-02-27 10:00 | PCCDE ---
Consult received 02/25; attempted to meet with pt but he c/o not feeling well. Hyperglycemia noted with POC BG range yesterday of 222-331. Discussed insulin titration and adding Jardiance with hospitalistLizbet.
--- NOTE | 2022-02-27 10:04 | PM.PNGS ---
Progress Note: A&P Assessment and Plan (1) Necrotizing soft tissue infection: Code(s): M79.89 - Other specified soft tissue disorders Status: Acute Assessment and Plan: right foot wound healing well with Santyl dressing changes daily and Mepilex. Anterior lower leg also healing well with silver gel and mupirocin dressing changes covered with Mepilex daily. Patient to undergo 2 weeks of IV vancomycin. I think this will be plenty of IV antibiotics. Would not extend IV antibiotics be on 2 weeks of therapy. He needs to be off IV Dilaudid before he can be transferred to [facility]. I will start p.r.n. dose of Percocet and reduce his Dilaudid dose and use only as backup. I think he has mostly been using that a lot it as backup. His history of drug dependence will make this a little more difficult. From my perspective, he can be transferred at any time and his right leg wounds followed as an outpatient. (2) Wound of right lower extremity: Qualifiers: Encounter type: initial encounter Qualified Code(s): S81.801A - Unspecified open wound, right lower leg, initial encounter Code(s): S81.801A - Unspecified open wound, right lower leg, initial encounter Status: Acute Assessment and Plan: These wounds are healing well with current dressing changes. As above, he can be transferred at any time and followed up as an outpatient. (3) Drug dependence, abuse: Code(s): F19.20 - Other psychoactive substance dependence, uncomplicated Status: Chronic Assessment and Plan: Foot wounds in several wounds of the upper extremity results of IV drug abuse complications. (4) Septic olecranon bursitis of left elbow: Code(s): M71.122 - Other infective bursitis, left elbow Status: Suspected Assessment and Plan: Dr. West plans to change dressing tomorrow. Hopefully can transfer soon in regards to the elbow bursitis infection. Subjective Subjective Date/Time Seen: 02/27/22 10:04 Post Op day: 5 Patient reports: no new complaints, pain is less and afebrile Exam Const: General: no acute distress, alert and awake Nutritional Appearance: average body habitus Orientation/consciousness: No confusion Extrem: Right lower extremity: lower leg ( clean and healing.) and foot ( All wounds making good progress, granulating dorsum foot) Objective Data Vital Signs Vital Signs: Vital Signs - 24 hr 02/26/22 13:38 02/26/22 13:47 02/26/22 14:25 Temperature 36.6 C Pulse Rate 80 82 97 Respiratory Rate 18 18 18 Blood Pressure 153/93 H Pulse Oximetry 95 Oxygen Delivery 02/26/22 20:00 02/26/22 21:38 02/26/22 21:47 Temperature Pulse Rate 88 85 Respiratory Rate 18 18 Blood Pressure Pulse Oximetry Oxygen Delivery Room Air 02/26/22 21:52 02/27/22 06:00 02/27/22 08:33 Temperature 35.8 C L 36.3 C L Pulse Rate 94 103 H 110 H Respiratory Rate 18 18 24 H Blood Pressure 170/96 H 162/74 H Pulse Oximetry 93 93 Oxygen Delivery 02/27/22 08:50 Temperature Pulse Rate 117 H Respiratory Rate 22 H Blood Pressure Pulse Oximetry Oxygen Delivery Intake/Output Intake/Output: Intake & Output 02/24/22 02/25/22 02/26/22 02/27/22 23:59 23:59 23:59 23:59 Intake Total 3230 3130 3240 790 Output Total 2580 800 1700 Balance 650 2330 1540 790 Meds/Results Medications: Active Medications Generic Name Dose Route Start Last Admin Trade Name Freq PRN Reason Stop Dose Admin Albuterol 2.5 mg 02/25/22 14:00 02/27/22 08:31 Albuterol Sulfate Neb 2.5 Mg/3 Ml Inh INHALATION 2.5 mg Q6HRT MARITZA Administration Alteplase, Recombinant 2 mg 02/27/22 03:08 02/27/22 03:39 Alteplase 2 Mg Vial (Cathflo) IV PUSH 2 mg ONCE PRN Administration Line Occlusion Amitriptyline HCl 50 mg 02/25/22 21:00 02/26/22 20:56 Amitriptyline Hcl 25 Mg Tablet PO 50 mg HS MARITZA Administration Buprenorphine/Naloxone 2 each 10
--- NOTE | 2022-02-27 10:16 | PM.PNORT ---
Progress Note: A&P Assessment and Plan (1) Abscess of left forearm: Code(s): L02.414 - Cutaneous abscess of left upper limb Status: Acute (2) Septic olecranon bursitis of left elbow: Code(s): M71.122 - Other infective bursitis, left elbow Status: Suspected Plan Continue q.o.d. dressing changes, next dressing change will be Wednesday. After speaking with Yesy, with care coordination, patient likely to be discharged nursing facility on Wednesday or Wednesday of next week. He is aware that he needs to keep pressure off of the left elbow and the sutures will need to be removed in 2 weeks. Following. Subjective Subjective Date/Time Seen: 02/27/22 10:16 Post Op day: 3 Principal diagnosis: s/p I&D left olecranon bursitis and forearm abscess Interval history: Postop day 3 s/p I and D left olecranon bursitis and forearm abscess. Continues to have no discomfort in the left upper extremity. Drain has been removed and there was essentially still no drainage from the incision site. No new complaints today. Review of Systems Review of Systems: All systems reviewed & are unremarkable except as noted in HPI and below Exam Const: General: cooperative, no acute distress, alert and awake Nutritional Appearance: well nourished (BMI 26.4) Orientation/consciousness: patient oriented x3 Resp: Effort & Inspection: normal respiratory effort GI: Inspection: non-distended Extrem: Other: Exam of the left elbow demonstrates well-approximated surgical incision without any apparent drainage.? Mild swelling distal to the surgical site. There is a slight abrasion at the left wrist which is healing. Neurovascular status left upper extremity fully intact. Psych: Mental Status: mental status grossly normal Objective Data Vital Signs Vital Signs: Vital Signs - 24 hr 02/26/22 13:38 02/26/22 13:47 02/26/22 14:25 Temperature 97.9 F Pulse Rate 80 82 97 Respiratory Rate 18 18 18 Blood Pressure 153/93 H Pulse Oximetry 95 Oxygen Delivery 02/26/22 20:00 02/26/22 21:38 02/26/22 21:47 Temperature Pulse Rate 88 85 Respiratory Rate 18 18 Blood Pressure Pulse Oximetry Oxygen Delivery Room Air 02/26/22 21:52 02/27/22 06:00 02/27/22 08:33 Temperature 96.5 F L 97.4 F L Pulse Rate 94 103 H 110 H Respiratory Rate 18 18 24 H Blood Pressure 170/96 H 162/74 H Pulse Oximetry 93 93 Oxygen Delivery 02/27/22 08:50 Temperature Pulse Rate 117 H Respiratory Rate 22 H Blood Pressure Pulse Oximetry Oxygen Delivery Intake/Output Intake/Output: Intake & Output 02/24/22 02/25/22 02/26/22 02/27/22 23:59 23:59 23:59 23:59 Intake Total 3230 3130 3240 790 Output Total 2580 800 1700 Balance 650 2330 1540 790 Meds/Results Medications: Active Medications Generic Name Dose Route Start Last Admin Trade Name Freq PRN Reason Stop Dose Admin Albuterol 2.5 mg 02/25/22 14:00 02/27/22 08:31 Albuterol Sulfate Neb 2.5 Mg/3 Ml Inh INHALATION 2.5 mg Q6HRT MARITZA Administration Alteplase, Recombinant 2 mg 02/27/22 03:08 02/27/22 03:39 Alteplase 2 Mg Vial (Cathflo) IV PUSH 2 mg ONCE PRN Administration Line Occlusion Amitriptyline HCl 50 mg 02/25/22 21:00 02/26/22 20:56 Amitriptyline Hcl 25 Mg Tablet PO 50 mg HS MARITZA Administration Buprenorphine/Naloxone 2 each 02/24/22 13:00 02/27/22 09:30 Buprenorphine Hcl/Naloxone Hcl (*Crx) 4 Mg/1 Mg Sl Film SUBLINGUAL 2 each TID MARITZA Administration Collagenase 1 applic 02/23/22 09:00 02/27/22 09:25 Collagenase Oint 30 Gm Tube TOPICAL 1 applic QAM MARITZA Administration Dextrose 12.5 gm 02/22/22 10:43 Dextrose 50% 25 Gm/50 Ml Syringe IV PUSH PRN PRN Hypoglycemia Protocol Empagliflozin 10 mg 02/27/22 10:00 Empagliflozin 10 Mg Tablet PO DAILY [facility] Enoxaparin Sodium 40 mg 02/21/22 09:00 02/27/22 09:20 Enoxaparin 40 Mg/0.4 Ml Syringe SUB-Q 40 mg DAILY S
[2022-02-27 11:28] LABS: Lactic Acid Reflex 2.3 mmol/L (0.7-2.0)
[2022-02-27 11:33] LABS: CRP 5.2 mg/dL (<1.0)
[2022-02-27 11:45] LABS: Glucose Point of Care 274 mg/dl (65-105)
[2022-02-27 12:03] LABS: Procalcitonin 0.3 ng/mL
[2022-02-27] MEDS: INSULIN ASPART (*BKC) 100 UNITS/ML 7 UNITS SUB-Q ×2 (12:11→17:31)
[2022-02-27] MEDS: BISACODYL 10 MG SUPPOSITORY RECTAL (13:08)
--- NOTE | 2022-02-27 13:25 | PM.IMPN ---
Progress Note: A&P Assessment and Plan (1) Sepsis: Qualifiers: Sepsis acute organ dysfunction status: unspecified Sepsis type: sepsis due to unspecified organism Qualified Code(s): A41.9 - Sepsis, unspecified organism Code(s): A41.9 - Sepsis, unspecified organism Status: Resolved Assessment and Plan: On admission, BP 93/63, HR 96, spO2 86% room air, WBC 29, lactic acid 3.2 with infected diabetic foot ulceration Continue IV antibiotics. Monitor hemodynamics. Lactic acid improved with antibiotic therapy and fluid resuscitation. 02/20/22 Blood cultures negative to date. Wound cultures as below. 02/27/22 wbc 13, lactic acid 2.3, procalcitonin 0.3, CRP improved 5.2 (down from 25). monitor (2) Wound of right lower extremity: Qualifiers: Encounter type: initial encounter Qualified Code(s): S81.801A - Unspecified open wound, right lower leg, initial encounter Code(s): S81.801A - Unspecified open wound, right lower leg, initial encounter Status: Acute Assessment and Plan: Right foot full-thickness ulceration status post I&D on 02/23 with General surgery Wound cultures showing MRSA and group a strep. patient initiated on IV vancomycin, IV cefepime, IV Flagyl upon admission on 02/20/2022 02/24/2022 Flagyl stopped and IV vancomycin and IV cefepime continued 02/25/2022 case discussed with ID pharmacist and vancomycin appropriate monotherapy for MRSA and group a strep at this time. Cefepime stopped. Patient will likely need approximately 2 weeks of antibiotic therapy. We will continue IV secondary to septic bursitis as below and adjust to oral pending ortho recommendations. 02/21 Venous Dopplers negative for any acute DVT. Wound care consulted patient receiving daily dressing changes with silver gel and santyl general surgery managing wound care will consult dietitian for nutritional assessment and optimal wound healing 02/27/22 stable (3) Necrotizing soft tissue infection: Code(s): M79.89 - Other specified soft tissue disorders Status: Acute Assessment and Plan: as above. (4) Abscess of left forearm: Code(s): L02.414 - Cutaneous abscess of left upper limb Status: Acute Assessment and Plan: patient with concern for septic olecranon bursitis more and forearm abscess. S/p I&D left forearm abscess with drain placement on 02/24/2022 With orthopedics it does not appear OR cultures were sent, but organisms likely this a.m. as isolated from right foot wound. Continue IV vancomycin with pharmacy to dose. Patient will likely need 2-4 weeks of antibiotic therapy. Will defer to Orthopedics regarding length of IV antibiotics needed and when can transition to oral antibiotics. Patient requiring frequent IV changes for infiltration. PICC line ordered for inpatient IV antibiotic therapy. It is strongly recommended patient not be discharged on IV antibiotics and central line given his history of IV drug use. (5) Septic olecranon bursitis of left elbow: Code(s): M71.122 - Other infective bursitis, left elbow Status: Suspected Assessment and Plan: As above. (6) Uncontrolled diabetes mellitus: Qualifiers: Diabetes mellitus type: type 2 Glycemic state: with hyperglycemia Qualified Code(s): E11.65 - Type 2 diabetes mellitus with hyperglycemia Status: Chronic Assessment and Plan: chronic, uncontrolled. Patient was taking metformin 1000 mg b.i.d. outpatient. He he reports not checking his blood sugars routinely. HgbA1C is 11.0% Patient started on basal bolus insulin therapy while inpatient. He reports today he would consider continuation of insulin therapy with Education if needed. 02/25/22 Fasting glucose 253 this a.m. and preprandial range 212 to 280. Patient Lantus dose increased to 13 units at HS on 02/24/2022 will continue this dose currently and increase in 1-2 days if f
[2022-02-27 14:15] LABS: Reflex Lactic Acid Yes or No Add Lactic
[2022-02-27] MEDS: FUROSEMIDE INJ 40 MG/4 ML VIAL IV PUSH (14:15)
[2022-02-27 15:03] LABS: Lactic Acid 1.7 mmol/L (0.7-2.0)
--- NOTE | 2022-02-27 16:04 | PCCDE ---
Attempted x 3 today to see pt w/o success. Left Diabetes Management book at pt bedside with DM Specialist contact info inside. Will attempt to f/up on Wednesday.
[2022-02-27 16:55] LABS: Glucose Point of Care 200 mg/dl (65-105)
[2022-02-27] MEDS: INSULIN GLARGINE (*BKC) 100 UNITS/ML 22 UNITS SUB-Q (20:49)
[2022-02-27] MEDS: AMITRIPTYLINE HCL 25 MG TABLET 50 MG PO (20:56)
[2022-02-27 21:06] LABS: Glucose Point of Care 178 mg/dl (65-105)
[2022-02-27] MEDS: oxyCODONE/ACETAMINOPHEN (*CRX) 5-325 MG TABLET 2 TABLET PO (22:00)
[2022-02-28] VITALS (11 sets, daily range): BP systolic 127–144; BP diastolic 58–85; PULSE 82–110; RESP 18–20; TEMP 35.9–37.2; O2SAT 92–94
[2022-02-28] MEDS: VANCOMYCIN HCL 1,500 MG in SODIUM CHLORIDE 0.9% IV 500 ML 333.33 MG IVPB ×3 (01:53→17:21)
[2022-02-28] MEDS: IPRATROPIUM BR 0.02% INH SOLN 0.5 MG/2.5 ML VIAL INHALATION ×4 (02:02→20:34)
[2022-02-28] MEDS: ALBUTEROL SULFATE NEB 2.5 MG/3 ML INH INHALATION ×4 (02:02→20:32)
[2022-02-28] MEDS: oxyCODONE/ACETAMINOPHEN (*CRX) 5-325 MG TABLET 2 TABLET PO ×2 (05:44→22:38)
[2022-02-28] MEDS: GABAPENTIN 400 MG CAPSULE 800 MG PO ×3 (05:45→22:26)
[2022-02-28] MEDS: CENTRAL LINE FLUSH 10 ML IV PUSH ×3 (05:45→22:26)
[2022-02-28 06:41] LABS: Basophils Percent Auto 0.5 % (0.2-1.2); Eosinophils Absolute Auto 0.1 K/mm3 (0-0.3); Eosinophils Percent Auto 1.3 % (0-4.4); Hematocrit 34.9 % (42.0-52.0); Hemoglobin 10.7 g/dL (14.0-18.0); Immature Granulocyte Absolute 0.16 K/mm3 (0.00-0.031); Immature Granulocyte Percent A 2.1 % (0-0.5); Lymphocytes Absolute Auto 2.14 K/mm3 (0.9-3.2); Lymphocytes Percent Auto 27.8 % (18.3-44.2); Mean Corpuscular HGB Conc 30.7 g/dl (32-36); Mean Corpuscular Hemoglobin 26.2 pg (26-34); Mean Corpuscular Volume 85.5 fl (80-100); Mean Platelet Volume 8.9 fl (7.4-10.4); Monocytes Absolute Auto 0.8 K/mm3 (0.1-0.6); Monocytes Percent Auto 9.7 % (2.6-8.5); Neutrophils Absolute Auto 4.5 K/mm3 (1.3-6.7); Neutrophils Percent Auto 58.6 % (45.5-73.1); Platelet Count Result 497 k/mm3 (150-375); Red Blood Count 4.08 M/mm3 (4.6-6.20); Red Cell Distribution Width 15.1 % (11.5-14.5); White Blood Count 7.7 K/mm3 (4.5-10.0)
[2022-02-28 07:03] LABS: Potassium 4.3 mmol/L (3.4-5.0)
[2022-02-28 07:06] LABS: NT Pro B Type Natriuretic Pept 346 pg/mL (5-100)
[2022-02-28 07:19] LABS: Anion Gap 8 mmol/L (8-16); Blood Urea Nitrogen 16 mg/dL (9-20); Calcium 7.9 mg/dL (8.4-10.2); Carbon Dioxide 32 mmol/L (22-30); Chloride 92 mmol/L (98-107); Estimated CRCL calculation 94 ml/min; Estimated Glomerular Filt Rate > 60; Glucose 236 mg/dL (65-110); Sodium 132 mmol/L (137-145)
[2022-02-28 07:32] LABS: Glucose Point of Care 204 mg/dl (65-105)
[2022-02-28] MEDS: INSULIN ASPART (*BKC) 100 UNITS/ML SUB-Q ×3 (08:38→17:22)
[2022-02-28] MEDS: COLLAGENASE OINT 30 GM TUBE 1 APPLIC TOPICAL (08:38)
[2022-02-28] MEDS: SILVERGEL (ELTA) 45 ML 1 APPLIC TOPICAL (08:38)
[2022-02-28] MEDS: INSULIN ASPART (*BKC) 100 UNITS/ML 7 UNITS SUB-Q ×3 (08:38→17:21)
[2022-02-28] MEDS: MUPIROCIN 2% OINT 22 GM TUBE 1 APPLIC TOPICAL (08:38)
[2022-02-28] MEDS: polyethylene glycoL 3350 17 GM POWD.PACK PO (08:47)
[2022-02-28] MEDS: LIDOCAINE 5% PATCH 1 PATCH TRANSDERM (08:48)
[2022-02-28] MEDS: FAMOTIDINE 20 MG TABLET PO ×2 (08:48→20:29)
[2022-02-28] MEDS: LOSARTAN POTASSIUM 50 MG TABLET PO (08:48)
[2022-02-28] MEDS: EMPAGLIFLOZIN 10 MG TABLET PO (08:48)
[2022-02-28] MEDS: ENOXAPARIN 40 MG/0.4 ML SYRINGE SUB-Q (08:48)
[2022-02-28] MEDS: SENNA/DOCUSATE SODIUM TABLET 2 TAB PO (08:48)
--- NOTE | 2022-02-28 09:05 | PM.IMPN ---
Progress Note: A&P Assessment and Plan (1) Sepsis: Qualifiers: Sepsis acute organ dysfunction status: unspecified Sepsis type: sepsis due to unspecified organism Qualified Code(s): A41.9 - Sepsis, unspecified organism Code(s): A41.9 - Sepsis, unspecified organism Status: Resolved Assessment and Plan: On admission, BP 93/63, HR 96, spO2 86% room air, WBC 29, lactic acid 3.2 with infected diabetic foot ulceration Continue IV antibiotics. Monitor hemodynamics. Lactic acid improved with antibiotic therapy and fluid resuscitation. 02/20/22 Blood cultures negative to date. Wound cultures as below. 02/27/22 wbc 13, lactic acid 2.3, procalcitonin 0.3, CRP improved 5.2 (down from 25). monitor 02/28/22 WBC trended to normal. Afebrile. (2) Wound of right lower extremity: Qualifiers: Encounter type: initial encounter Qualified Code(s): S81.801A - Unspecified open wound, right lower leg, initial encounter Code(s): S81.801A - Unspecified open wound, right lower leg, initial encounter Status: Acute Assessment and Plan: Right foot full-thickness ulceration status post I&D on 02/23 with General surgery Wound cultures showing MRSA and group a strep. patient initiated on IV vancomycin, IV cefepime, IV Flagyl upon admission on 02/20/2022 02/24/2022 Flagyl stopped and IV vancomycin and IV cefepime continued 02/25/2022 case discussed with ID pharmacist and vancomycin appropriate monotherapy for MRSA and group a strep at this time. Cefepime stopped. Patient will likely need approximately 2 weeks of antibiotic therapy. We will continue IV secondary to septic bursitis as below and adjust to oral pending ortho recommendations. 02/21 Venous Dopplers negative for any acute DVT. Wound care consulted patient receiving daily dressing changes with silver gel and santyl general surgery managing wound care will consult dietitian for nutritional assessment and optimal wound healing 02/27/22 stable 02/28/22 Continue daily dressing changes per general surgery. Pain controlled on oral percocet. (3) Necrotizing soft tissue infection: Code(s): M79.89 - Other specified soft tissue disorders Status: Acute Assessment and Plan: as above. (4) Abscess of left forearm: Code(s): L02.414 - Cutaneous abscess of left upper limb Status: Acute Assessment and Plan: patient with concern for septic olecranon bursitis more and forearm abscess. S/p I&D left forearm abscess with drain placement on 02/24/2022 With orthopedics it does not appear OR cultures were sent, but organisms likely this a.m. as isolated from right foot wound. Continue IV vancomycin with pharmacy to dose. Patient will likely need 2-4 weeks of antibiotic therapy. Will defer to Orthopedics regarding length of IV antibiotics needed and when can transition to oral antibiotics. Patient requiring frequent IV changes for infiltration. PICC line ordered for inpatient IV antibiotic therapy. It is strongly recommended patient not be discharged on IV antibiotics and central line given his history of IV drug use. 02/28/22 Continue every other dressing changes per Ortho. Discussed antibiotics with Ortho surgeon who would like 4 weeks of IV antibiotics. OR I&D septic bursitis and forearm abscess on 02/24. Vancomycin started 02/20, however, source control 02/24/22 making today day 5 of antibiotics. He will need dose adjustment for Q24 hour or Q12 hour for transition to rehab. (5) Septic olecranon bursitis of left elbow: Code(s): M71.122 - Other infective bursitis, left elbow Status: Suspected Assessment and Plan: As above. (6) Uncontrolled diabetes mellitus: Qualifiers: Diabetes mellitus type: type 2 Glycemic state: with hyperglycemia Qualified Code(s): E11.65 - Type 2 diabetes mellitus with hyperglycemia Status: Chronic Assessment and Plan:
--- NOTE | 2022-02-28 09:05 | P.PNIM_ITS ---
Progress Note: A&P Assessment and Plan (1) Sepsis: Qualifiers: Sepsis acute organ dysfunction status: unspecified Sepsis type: sepsis due to unspecified organism Qualified Code(s): A41.9 - Sepsis, unspecified o rganism Code(s): A41.9 - Sepsis, unspecified organism Status: Resolved Assessment and Plan: On admission, BP 93/63, HR 96, spO2 86% room air, WBC 29, lactic acid 3.2 with infected diabetic foot ulceration * Continue IV antibiotics. * Monitor hemodynamics. * Lactic acid improved with antibiotic therapy and fluid resuscitation. * 02/20/22 Blood cultures negative to date. * Wound cultures as below. * 02/27/22 wbc 13, lactic acid 2.3, procalcitonin 0.3, CRP improved 5.2 (down from 25). monitor * 02/28/22 WBC trended to normal. Afebrile. (2) Wound of right lower extremity: Qualifiers: Encounter type: initial encounter Qualified Code(s): S81.801A - Unspecified open wound, right lower leg, initial encounter Code(s): S81.801A - Unspecified open wound, right lower leg, initial encounter Status: Acute Assessment and Plan: Right foot full-thickness ulceration status post I&D on 02/23 with General surgery * Wound cultures showing MRSA and group a strep. * patient initiated on IV vancomycin, IV cefepime, IV Flagyl upon admission on 02/20/2022 * 02/24/2022 Flagyl stopped and IV vancomycin and IV cefepime continued * 02/25/2022 case discussed with ID pharmacist and vancomycin appropriate m onotherapy for MRSA and group a strep at this time. Cefepime stopped. Patient will likely need approximately 2 weeks of antibiotic therapy. We will continue IV secondary to septic bursitis as below and adjust to oral pending ortho recommendations. * 02/21 Venous Dopplers negative for any acute DVT. * Wound care consulted patient receiving daily dressing changes with silver gel and santyl * general surgery managing wound care * will consult dietitian for nutritional assessment and optimal wound healing * 02/27/22 stable * 02/28/22 Continue daily dressing changes per general surgery. Pain controlled on oral percocet. (3) Necrotizing soft tissue infection: Code(s): M79.89 - Other specified soft tissue disorders Status: Acute Assessment and Plan: as above. (4) Abscess of left forearm: Code(s): L02.414 - Cutaneous abscess of left upper limb Status: Acute Assessment and Plan: patient with concern for septic olecranon bursitis more and forearm abscess. * S/p I&D left forearm abscess with drain placement on 02/24/2022 With orthopedics * it does not appear OR cultures were sent, but organisms likely this a.m. as isolated from right foot wound. * Continue IV vancomycin with pharmacy to dose. Patient will likely need 2-4 weeks of antibiotic therapy. Will defer to Orthopedics regarding length of IV antibiotics needed and when can transition to oral antibiotics. * Patient requiring frequent IV changes for infiltration. PICC line ordered for inpatient IV antibiotic therapy. It is strongly recommended patient not be discharged on IV antibiotics and central line given his history of IV drug use. * 02/28/22 Continue every other dressing changes per Ortho. Discussed antibiotics with Ortho surgeon who would like 4 weeks of IV antibiotics. OR I&D septic bursitis and forearm abscess on 02/24. Vancomycin started 02/20, however, source control 02/24/22 making today day 5 of antibiotics. He will need dose adjustment for Q24 hour or Q12 hour for transition to rehab. (5) Septic olecranon bursitis of left elbow: Code(s
[2022-02-28] MEDS: NICOTINE (*PBKC) 21 MG PATCH 1 PATCH TRANSDERM (10:34)
--- NOTE | 2022-02-28 10:47 | PM.PNORT ---
Progress Note: A&P Assessment and Plan (1) Abscess of left forearm: Code(s): L02.414 - Cutaneous abscess of left upper limb Status: Acute (2) Septic olecranon bursitis of left elbow: Code(s): M71.122 - Other infective bursitis, left elbow Status: Suspected Plan Elbow and forearm doing well. Plan on leaving stitches in for 14 days. Given all of his infection issues I think four weeks of IV antibiotics are probably indicated for him. Following. Thank you. Subjective Subjective Date/Time Seen: 02/28/22 10:47 Post Op day: 4 Principal diagnosis: Dx: Interval history: 61-year-old male postop day four debridement left elbow and forearm subcutaneous abscess. Elbow doing well. No pain. Exam Const: General: cooperative, alert and awake Orientation/consciousness: patient oriented x3 HENMT: Head: normal to inspection Ears: hearing grossly normal bilaterally Resp: Effort & Inspection: able to speak in complete sentences GI: Inspection: non-distended GI Palp: No abdominal tenderness Neuro: General: patient oriented x3 Extrem: Other: Exam of The left elbow wound shows that it is well apposed with no drainage. Virtually no erythema. Dressing change today. Will be changed again in two days. Objective Data Vital Signs Vital Signs: Vital Signs - 24 hr 02/27/22 13:03 02/27/22 13:20 02/27/22 15:38 Temperature 97.4 F L Pulse Rate 101 H 107 H 103 H Respiratory Rate 18 18 18 Blood Pressure 129/62 Pulse Oximetry 94 Oxygen Delivery 02/27/22 20:00 02/27/22 20:50 02/27/22 21:01 Temperature Pulse Rate 99 101 H Respiratory Rate 18 18 Blood Pressure Pulse Oximetry Oxygen Delivery Room Air 02/27/22 22:00 02/28/22 02:02 02/28/22 02:15 Temperature 97.2 F L Pulse Rate 100 104 H 100 Respiratory Rate 16 18 18 Blood Pressure 126/58 L Pulse Oximetry 92 Oxygen Delivery 02/28/22 06:00 02/28/22 08:06 02/28/22 08:16 Temperature 97.4 F L Pulse Rate 87 82 86 Respiratory Rate 18 18 18 Blood Pressure 136/58 L Pulse Oximetry 94 Oxygen Delivery Intake/Output Intake/Output: Intake & Output 02/25/22 02/26/22 02/27/2202/28/22 23:59 23:59 23:59 23:59 Intake Total 3130 / 3130 3240 / 3240 2820 / 2820 2940 / 2940 Output Total 800 / 800 1700 / 1700 700 / 700 Balance 2330 / 2330 1540 / 1540 2120 / 2120 2940 / 2940 Meds/Results Medications: Active Medications Generic Name Dose Route Start Last Admin Trade Name Freq PRN Reason Stop Dose Admin Albuterol 2.5 mg 02/25/22 14:00 02/28/22 08:05 Albuterol Sulfate Neb 2.5 Mg/3 Ml Inh INHALATION 2.5 mg Q6HRT MARITZA Administration Alteplase, Recombinant 2 mg 02/27/22 03:08 02/27/22 03:39 Alteplase 2 Mg Vial (Cathflo) IV PUSH 2 mg ONCE PRN Administration Line Occlusion Amitriptyline HCl 50 mg 02/25/22 21:00 02/27/22 20:56 Amitriptyline Hcl 25 Mg Tablet PO 50 mg HS MARITZA Administration Buprenorphine/Naloxone 2 each 02/24/22 13:00 02/28/22 08:47 Buprenorphine Hcl/Naloxone Hcl (*Crx) 4 Mg/1 Mg Sl Film SUBLINGUAL 2 each TID MARITZA Administration Collagenase 1 applic 02/23/22 09:00 02/27/22 09:25 Collagenase Oint 30 Gm Tube TOPICAL 1 applic QAM MARITZA Administration Dextrose 12.5 gm 02/22/22 10:43 Dextrose 50% 25 Gm/50 Ml Syringe IV PUSH PRN PRN Hypoglycemia Protocol Empagliflozin 10 mg 02/28/22 09:00 02/28/22 08:48 Empagliflozin 10 Mg Tablet PO 10 mg DAILY MARITZA Administration Enoxaparin Sodium 40 mg 02/21/22 09:00 02/28/22 08:48 Enoxaparin 40 Mg/0.4 Ml Syringe SUB-Q 40 mg DAILY MARITZA Administration Famotidine 20 mg 02/22/22 21:00 02/28/22 08:48 Famotidine 20 Mg Tablet PO 20 mg Q12HR MARITZA Administration Gabapentin 800 mg 02/25/22 14:00 02/28/22 05:45 Gabapentin 400 Mg Capsule PO 800 mg Q8HR MARITZA Administration Glucagon 1 mg 02/22/22 10:43 Glucagon For Inj 1 Mg Vial IM NV
--- NOTE | 2022-02-28 10:59 | PCPTNOTE ---
Attempted to see patient for PT, however patient refused. Patient did not really give reason why, just that he wanted to do therapy later. Educated pt on the importance of therapy and gave encouragement for participation. Patient continued to refuse.
[2022-02-28 11:26] LABS: Glucose Point of Care 222 mg/dl (65-105)
[2022-02-28 16:46] LABS: Glucose Point of Care 340 mg/dl (65-105)
[2022-02-28] MEDS: POTASSIUM CHLORIDE 20 MEQ PACKET (FOR LIQUID) PO (17:21)
[2022-02-28] MEDS: FUROSEMIDE INJ 40 MG/4 ML VIAL IV PUSH (17:21)
[2022-02-28] MEDS: AMITRIPTYLINE HCL 25 MG TABLET 50 MG PO (20:29)
[2022-02-28] MEDS: INSULIN GLARGINE (*BKC) 100 UNITS/ML 22 UNITS SUB-Q (20:30)
[2022-02-28 23:39] LABS: Glucose Point of Care 191 mg/dl (65-105)
[2022-03-01] VITALS (8 sets, daily range): BP systolic 105–133; BP diastolic 59–77; PULSE 73–96; RESP 16–20; TEMP 35.9–36.6; O2SAT 93–100
[2022-03-01 02:26] LABS: Vancomycin Trough 29.3 ug/mL (10.0-20.0)
[2022-03-01] MEDS: IPRATROPIUM BR 0.02% INH SOLN 0.5 MG/2.5 ML VIAL INHALATION ×4 (02:52→20:25)
[2022-03-01] MEDS: ALBUTEROL SULFATE NEB 2.5 MG/3 ML INH INHALATION ×4 (02:54→20:24)
[2022-03-01] MEDS: GABAPENTIN 400 MG CAPSULE 800 MG PO ×3 (05:22→22:16)
[2022-03-01] MEDS: CENTRAL LINE FLUSH 10 ML IV PUSH ×3 (05:23→22:16)
[2022-03-01 05:26] LABS: Hematocrit 33.8 % (42.0-52.0); Hemoglobin 10.4 g/dL (14.0-18.0); Mean Corpuscular HGB Conc 30.8 g/dl (32-36); Mean Corpuscular Hemoglobin 25.9 pg (26-34); Mean Corpuscular Volume 84.1 fl (80-100); Mean Platelet Volume 8.8 fl (7.4-10.4); Platelet Count Result 521 k/mm3 (150-375); Red Blood Count 4.02 M/mm3 (4.6-6.20); White Blood Count 8.4 K/mm3 (4.5-10.0)
[2022-03-01 05:50] LABS: Alanine Aminotransferase 32 U/L (6-50); Albumin Level 3.2 g/dL (3.5-5.1); Alkaline Phosphatase 182 U/L (38-126); Anion Gap 6 mmol/L (8-16); Aspartate Amino Transferase 49 U/L (17-59); Bilirubin,Total 0.3 mg/dL (0.2-1.3); Blood Urea Nitrogen 19 mg/dL (9-20); Calcium 8.2 mg/dL (8.4-10.2); Carbon Dioxide 34 mmol/L (22-30); Chloride 92 mmol/L (98-107); Estimated CRCL calculation 94 ml/min; Estimated Glomerular Filt Rate > 60; Glucose 187 mg/dL (65-110); Potassium 4.8 mmol/L (3.4-5.0); Sodium 132 mmol/L (137-145)
[2022-03-01 07:34] LABS: Glucose Point of Care 214 mg/dl (65-105)
[2022-03-01] MEDS: NICOTINE (*PBKC) 21 MG PATCH 1 PATCH TRANSDERM (08:27)
[2022-03-01] MEDS: ENOXAPARIN 40 MG/0.4 ML SYRINGE SUB-Q (08:27)
[2022-03-01] MEDS: EMPAGLIFLOZIN 10 MG TABLET PO (08:28)
[2022-03-01] MEDS: LOSARTAN POTASSIUM 50 MG TABLET PO (08:28)
[2022-03-01] MEDS: SENNA/DOCUSATE SODIUM TABLET 2 TAB PO ×2 (08:28→17:07)
[2022-03-01] MEDS: LIDOCAINE 5% PATCH 1 PATCH TRANSDERM (08:28)
[2022-03-01] MEDS: INSULIN ASPART (*BKC) 100 UNITS/ML 7 UNITS SUB-Q ×3 (08:28→17:06)
[2022-03-01] MEDS: FAMOTIDINE 20 MG TABLET PO ×2 (08:28→22:16)
[2022-03-01] MEDS: polyethylene glycoL 3350 17 GM POWD.PACK PO (08:28)
[2022-03-01] MEDS: INSULIN ASPART (*BKC) 100 UNITS/ML SUB-Q ×3 (08:29→17:06)
[2022-03-01] MEDS: COLLAGENASE OINT 30 GM TUBE 1 APPLIC TOPICAL (08:30)
[2022-03-01] MEDS: MUPIROCIN 2% OINT 22 GM TUBE 1 APPLIC TOPICAL (08:30)
[2022-03-01] MEDS: SILVERGEL (ELTA) 45 ML 1 APPLIC TOPICAL (08:31)
[2022-03-01 11:25] LABS: Glucose Point of Care 304 mg/dl (65-105)
[2022-03-01] MEDS: oxyCODONE/ACETAMINOPHEN (*CRX) 5-325 MG TABLET 2 TABLET PO (11:42)
--- NOTE | 2022-03-01 13:27 | PM.IMPN ---
Progress Note: A&P Assessment and Plan (1) Sepsis: Qualifiers: Sepsis acute organ dysfunction status: unspecified Sepsis type: sepsis due to unspecified organism Qualified Code(s): A41.9 - Sepsis, unspecified organism Code(s): A41.9 - Sepsis, unspecified organism Status: Resolved Assessment and Plan: On admission, BP 93/63, HR 96, spO2 86% room air, WBC 29, lactic acid 3.2 with infected diabetic foot ulceration Continue IV antibiotics. Monitor hemodynamics. Lactic acid improved with antibiotic therapy and fluid resuscitation. 02/20/22 Blood cultures negative to date. Wound cultures as below. 02/27/22 wbc 13, lactic acid 2.3, procalcitonin 0.3, CRP improved 5.2 (down from 25). monitor 02/28/22 WBC trended to normal. Afebrile. 03/01/2022 wbc wnl (2) Wound of right lower extremity: Qualifiers: Encounter type: initial encounter Qualified Code(s): S81.801A - Unspecified open wound, right lower leg, initial encounter Code(s): S81.801A - Unspecified open wound, right lower leg, initial encounter Status: Acute Assessment and Plan: Right foot full-thickness ulceration status post I&D on 02/23 with General surgery Wound cultures showing MRSA and group a strep. patient initiated on IV vancomycin, IV cefepime, IV Flagyl upon admission on 02/20/2022 02/24/2022 Flagyl stopped and IV vancomycin and IV cefepime continued 02/25/2022 case discussed with ID pharmacist and vancomycin appropriate monotherapy for MRSA and group a strep at this time.? Cefepime stopped.? Patient will likely need approximately 2 weeks of antibiotic therapy.? We will continue IV secondary to septic bursitis as below and adjust to oral pending ortho recommendations. 02/21 Venous Dopplers negative for any acute DVT. Wound care consulted patient receiving daily dressing changes with silver gel and santyl ?general surgery managing wound care ?will consult dietitian for nutritional assessment and optimal wound healing 02/27/22 stable 02/28/22 Continue daily dressing changes per general surgery. Pain controlled on oral percocet. (3) Necrotizing soft tissue infection: Code(s): M79.89 - Other specified soft tissue disorders Status: Acute Assessment and Plan: ?patient with concern for septic olecranon bursitis more and forearm abscess. S/p I&D left forearm abscess with drain placement on 02/24/2022 With orthopedics ?it does not appear OR cultures were sent, but organisms likely this a.m. as isolated from right foot wound.? Continue IV vancomycin with pharmacy to dose.? Patient will likely need 2-4 weeks of antibiotic therapy.? Will defer to Orthopedics regarding length of IV antibiotics needed and when can transition to oral antibiotics.? Patient requiring frequent IV changes for infiltration.? PICC line ordered for inpatient IV antibiotic therapy.? It is strongly recommended patient not be discharged on IV antibiotics and central line given his history of IV drug use. 02/28/22 Continue every other dressing changes per Ortho.?Discussed antibiotics with Ortho surgeon who would like 4 weeks of IV antibiotics. OR I&D septic bursitis and forearm abscess on 02/24. Vancomycin started 02/20, however, source control 02/24/22 making today day 5 of antibiotics. He will need dose adjustment for Q24 hour or Q12 hour for transition to rehab. (4) Abscess of left forearm: Code(s): L02.414 - Cutaneous abscess of left upper limb Status: Acute Assessment and Plan: patient with concern for septic olecranon bursitis more and forearm abscess. S/p I&D left forearm abscess with drain placement on 02/24/2022 With orthopedics ?it does not appear OR cultures were sent, but organisms likely this a.m. as isolated from right foot wound.? Continue IV vancomycin with pharmacy to dose.? Patient will likely need 2-4 weeks of antibiotic therapy.? Will defer to Orthopedics regarding length of IV antibiotics needed
[2022-03-01 16:24] LABS: Glucose Point of Care 273 mg/dl (65-105)
[2022-03-01 20:43] LABS: Glucose Point of Care 200 mg/dl (65-105)
[2022-03-01] MEDS: AMITRIPTYLINE HCL 25 MG TABLET 50 MG PO (22:16)
[2022-03-01] MEDS: INSULIN GLARGINE (*BKC) 100 UNITS/ML 22 UNITS SUB-Q (22:17)
[2022-03-02] VITALS (11 sets, daily range): BP systolic 107–135; BP diastolic 52–63; PULSE 76–88; RESP 16–20; TEMP 35.8–36.4; O2SAT 90–95
[2022-03-02] MEDS: ALBUTEROL SULFATE NEB 2.5 MG/3 ML INH INHALATION ×4 (01:09→21:05)
[2022-03-02] MEDS: IPRATROPIUM BR 0.02% INH SOLN 0.5 MG/2.5 ML VIAL INHALATION ×4 (01:10→21:05)
[2022-03-02] MEDS: GABAPENTIN 400 MG CAPSULE 800 MG PO ×3 (06:18→21:56)
[2022-03-02] MEDS: CENTRAL LINE FLUSH 10 ML IV PUSH ×3 (06:18→21:56)
[2022-03-02 07:43] LABS: Alanine Aminotransferase 28 U/L (6-50); Albumin Level 3.2 g/dL (3.5-5.1); Alkaline Phosphatase 170 U/L (38-126); Anion Gap 7 mmol/L (8-16); Aspartate Amino Transferase 36 U/L (17-59); Bilirubin,Total 0.3 mg/dL (0.2-1.3); Blood Urea Nitrogen 19 mg/dL (9-20); Calcium 8.4 mg/dL (8.4-10.2); Carbon Dioxide 33 mmol/L (22-30); Chloride 93 mmol/L (98-107); Estimated CRCL calculation 94 ml/min; Estimated Glomerular Filt Rate > 60; Glucose 184 mg/dL (65-110); Potassium 4.5 mmol/L (3.4-5.0); Sodium 133 mmol/L (137-145)
[2022-03-02 07:45] LABS: Hematocrit 34.9 % (42.0-52.0); Hemoglobin 10.6 g/dL (14.0-18.0); Mean Corpuscular HGB Conc 30.4 g/dl (32-36); Mean Corpuscular Hemoglobin 25.8 pg (26-34); Mean Corpuscular Volume 84.9 fl (80-100); Mean Platelet Volume 8.9 fl (7.4-10.4); Platelet Count Result 539 k/mm3 (150-375); Red Blood Count 4.11 M/mm3 (4.6-6.20); Red Cell Distribution Width 14.8 % (11.5-14.5); White Blood Count 9.4 K/mm3 (4.5-10.0)
[2022-03-02] MEDS: ALTEPLASE 2 MG VIAL (CATHFLO) IV PUSH (07:45)
[2022-03-02 07:54] LABS: Glucose Point of Care 421 mg/dl (65-105)
[2022-03-02 08:05] LABS: Vancomycin Trough 25.2 ug/mL (10.0-20.0)
[2022-03-02] MEDS: ENOXAPARIN 40 MG/0.4 ML SYRINGE SUB-Q (09:01)
[2022-03-02] MEDS: NICOTINE (*PBKC) 21 MG PATCH 1 PATCH TRANSDERM (09:01)
[2022-03-02] MEDS: LIDOCAINE 5% PATCH 1 PATCH TRANSDERM (09:01)
[2022-03-02] MEDS: polyethylene glycoL 3350 17 GM POWD.PACK PO (09:02)
[2022-03-02] MEDS: INSULIN ASPART (*BKC) 100 UNITS/ML 10 UNITS SUB-Q (09:02)
[2022-03-02] MEDS: EMPAGLIFLOZIN 10 MG TABLET PO (09:02)
[2022-03-02] MEDS: SENNA/DOCUSATE SODIUM TABLET 2 TAB PO ×2 (09:02→17:17)
[2022-03-02] MEDS: FAMOTIDINE 20 MG TABLET PO ×2 (09:02→21:56)
[2022-03-02] MEDS: LOSARTAN POTASSIUM 50 MG TABLET PO (09:02)
[2022-03-02] MEDS: SILVERGEL (ELTA) 45 ML 1 APPLIC TOPICAL (09:03)
[2022-03-02] MEDS: INSULIN ASPART (*BKC) 100 UNITS/ML 7 UNITS SUB-Q ×3 (09:03→17:17)
[2022-03-02] MEDS: COLLAGENASE OINT 30 GM TUBE 1 APPLIC TOPICAL (09:03)
[2022-03-02] MEDS: MUPIROCIN 2% OINT 22 GM TUBE 1 APPLIC TOPICAL (09:03)
[2022-03-02] MEDS: oxyCODONE/ACETAMINOPHEN (*CRX) 5-325 MG TABLET 2 TABLET PO (09:10)
--- NOTE | 2022-03-02 10:33 | PM.PNORT ---
Progress Note: A&P Assessment and Plan (1) Abscess of left forearm: Code(s): L02.414 - Cutaneous abscess of left upper limb Status: Acute (2) Septic olecranon bursitis of left elbow: Code(s): M71.122 - Other infective bursitis, left elbow Status: Suspected Plan Elbow and forearm continues to do well. Plan on leaving stitches in for 14 days from surgical date (remove around March 11). Continue with 4 weeks of IV antibiotics. Following. Subjective Subjective Date/Time Seen: 03/02/22 10:33 Post Op day: 6 Principal diagnosis: s/p I&D left olecranon bursitis and forearm abscess Interval history: Postop day 6 s/p I and D left olecranon bursitis and forearm abscess. No discomfort in the left upper extremity. No drainage from the incision site. No new complaints. Review of Systems Review of Systems: All systems reviewed & are unremarkable except as noted in HPI and below Exam Const: General: cooperative, no acute distress, alert and awake Nutritional Appearance: well nourished (BMI 26.4) Orientation/consciousness: patient oriented x3 Resp: Effort & Inspection: normal respiratory effort GI: Inspection: non-distended Extrem: Other: Exam of the left elbow demonstrates well-approximated surgical incision without any drainage.? Slight induration around the surgical site but erythema or swelling. No sign of infection. Neurovascular status left upper extremity intact. Psych: Mental Status: mental status grossly normal Objective Data Vital Signs Vital Signs: Vital Signs - 24 hr 03/01/22 14:00 03/01/22 14:31 03/01/22 14:38 Temperature 96.6 F L Pulse Rate 96 75 75 Respiratory Rate 16 16 16 Blood Pressure 105/59 L Pulse Oximetry 93 03/01/22 22:00 03/02/22 01:12 03/02/22 01:25 Temperature 97.5 F L Pulse Rate 89 83 84 Respiratory Rate 20 16 16 Blood Pressure 118/65 Pulse Oximetry 100 03/02/22 05:26 03/02/22 07:35 03/02/22 07:47 Temperature 97.5 F L Pulse Rate 86 79 82 Respiratory Rate 20 16 16 Blood Pressure 123/57 L Pulse Oximetry 95 Intake/Output Intake/Output: Intake & Output 02/27/22 02/28/22 03/01/22 03/02/22 23:59 23:59 23:59 23:59 Intake Total 2820 4640 3430 950 Output Total 700 2600 2525 1350 Balance 2120 2040 905 -400 Meds/Results Medications: Active Medications Generic Name Dose Route Start Last Admin Trade Name Freq PRN Reason Stop Dose Admin Albuterol 2.5 mg 02/25/22 14:00 03/02/22 07:43 Albuterol Sulfate Neb 2.5 Mg/3 Ml Inh INHALATION 2.5 mg Q6HRT MARITZA Administration Alteplase, Recombinant 2 mg 02/27/22 03:08 03/02/22 07:45 Alteplase 2 Mg Vial (Cathflo) IV PUSH 2 mg ONCE PRN Administration Line Occlusion Alteplase, Recombinant 2 mg 03/02/22 06:50 Alteplase 2 Mg Vial (Cathflo) IV PUSH ONCE PRN Line Occlusion Amitriptyline HCl 50 mg 02/25/22 21:00 03/01/22 22:16 Amitriptyline Hcl 25 Mg Tablet PO 50 mg HS MARITZA Administration Buprenorphine/Naloxone 2 each 02/24/22 13:00 03/02/22 10:23 Buprenorphine Hcl/Naloxone Hcl (*Crx) 4 Mg/1 Mg Sl Film SUBLINGUAL 2 each TID MARITZA Administration Collagenase 1 applic 02/23/22 09:00 03/02/22 09:03 Collagenase Oint 30 Gm Tube TOPICAL 1 applic QAM MARITZA Administration Dextrose 12.5 gm 02/22/22 10:43 Dextrose 50% 25 Gm/50 Ml Syringe IV PUSH PRN PRN Hypoglycemia Protocol Empagliflozin 10 mg 02/28/22 09:00 03/02/22 09:02 Empagliflozin 10 Mg Tablet PO 10 mg DAILY MARITZA Administration Enoxaparin Sodium 40 mg 02/21/22 09:00 03/02/22 09:01 Enoxaparin 40 Mg/0.4 Ml Syringe SUB-Q 40 mg DAILY MARITZA Administration Famotidine 20 mg 02/22/22 21:00 03/02/22 09:02 Famotidine 20 Mg Tablet PO 20 mg Q12HR MARITZA Administration Gabapentin 800 mg 02/25/22 14:00 03/02/22 06:18 Gabapentin 400 Mg Capsule PO 800 mg Q8HR MARITZA Administration Glucagon 1 mg 02/22/22 10:43 Gluca
[2022-03-02 11:25] LABS: Glucose Point of Care 193 mg/dl (65-105)
--- NOTE | 2022-03-02 11:39 | P.PNIM_ITS ---
Progress Note: A&P Assessment and Plan (1) Sepsis: Qualifiers: Sepsis acute organ dysfunction status: unspecified Sepsis type: sepsis due to unspecified organism Qualified Code(s): A41.9 - Sepsis, unspecified o rganism Code(s): A41.9 - Sepsis, unspecified organism Status: Resolved Assessment and Plan: On admission, BP 93/63, HR 96, spO2 86% room air, WBC 29, lactic acid 3.2 with infected diabetic foot ulceration * Continue IV antibiotics. * Monitor hemodynamics. * Lactic acid improved with antibiotic therapy and fluid resuscitation. * 02/20/22 Blood cultures negative to date. * Wound cultures as below. * 02/27/22 wbc 13, lactic acid 2.3, procalcitonin 0.3, CRP improved 5.2 (down from 25). monitor * 02/28/22 WBC trended to normal. Afebrile. * 03/01/2022 wbc wnl * 03/02/2022: No longer meeting SIRS or sepsis criteria. Receiving monotherapy antibiotics with vancomycin. He will require treatment for weeks. Suspect he will be ready for discharge tomorrow to [facility] for continued rehab and treatment once his glucose is better controlled. (2) Wound of right lower extremity: Qualifiers: Encounter type: initial encounter Qualified Code(s): S81.801A - Unspecified open wound, right lower leg, initial encounter Code(s): S81.801A - Unspecified open wound, right lower leg, initial encounter Status: Acute Assessment and Plan: Right foot full-thickness ulceration status post I&D on 02/23 with General surgery * Wound cultures showing MRSA and group a strep. * patient initiated on IV vancomycin, IV cefepime, IV Flagyl upon admission on 02/20/2022 * 02/24/2022 Flagyl stopped and IV vancomycin and IV cefepime continued * 02/25/2022 case discussed with ID pharmacist and vancomycin appropriate monotherapy for MRSA and group a strep at this time.? Cefepime stopped.? Patient will likely need approximately 2 weeks of antibiotic therapy.? We will continue IV secondary to septic bursitis as below and adjust to oral pending ortho recommendations. * 02/21 Venous Dopplers negative for any acute DVT. * Wound care consulted patient receiving daily dressing changes with silver gel and santyl * ?general surgery managing wound care * ?will consult dietitian for nutritional assessment and optimal wound healing * 02/27/22 stable * 02/28/22 Continue daily dressing changes per general surgery. Pain controlled on oral percocet. * 03/02/22: Continue current dressing change orders. (3) Necrotizing soft tissue infection: Code(s): M79.89 - Other specified soft tissue disorders Status: Acute Assessment and Plan: ?patient with concern for septic olecranon bursitis more and forearm abscess. * S/p I&D left forearm abscess with drain placement on 02/24/2022 With orthopedics * ?it does not appear OR cultures were sent, but organisms likely this a.m. as isolated from right foot wound.? * Continue IV vancomycin with pharmacy to dose.? Patient will likely need 2-4 weeks of antibiotic therapy.? Will defer to Orthopedics regarding length of IV antibiotics needed and when can transition to oral antibiotics.? * Patient requiring frequent IV changes for infiltration.? PICC line ordered for inpatient IV antibiotic therapy.? It is strongly recommended patient not be discharged on IV antibiotics and central line given his history of IV drug use. * 02/28/22 Continue every other dressing changes per Ortho.?Discussed antibi otics with Ortho surgeon who would like 4 weeks of IV antibiotics. OR I&D septic bursitis and forearm abscess on 02/24. Vancomycin started 02/20, however, source control 02/24/22 making to
--- NOTE | 2022-03-02 11:39 | PM.IMPN ---
Progress Note: A&P Assessment and Plan (1) Sepsis: Qualifiers: Sepsis acute organ dysfunction status: unspecified Sepsis type: sepsis due to unspecified organism Qualified Code(s): A41.9 - Sepsis, unspecified organism Code(s): A41.9 - Sepsis, unspecified organism Status: Resolved Assessment and Plan: On admission, BP 93/63, HR 96, spO2 86% room air, WBC 29, lactic acid 3.2 with infected diabetic foot ulceration Continue IV antibiotics. Monitor hemodynamics. Lactic acid improved with antibiotic therapy and fluid resuscitation. 02/20/22 Blood cultures negative to date. Wound cultures as below. 02/27/22 wbc 13, lactic acid 2.3, procalcitonin 0.3, CRP improved 5.2 (down from 25). monitor 02/28/22 WBC trended to normal. Afebrile. 03/01/2022 wbc wnl 03/02/2022: No longer meeting SIRS or sepsis criteria. Receiving monotherapy antibiotics with vancomycin. He will require treatment for weeks. Suspect he will be ready for discharge tomorrow to [facility] for continued rehab and treatment once his glucose is better controlled. (2) Wound of right lower extremity: Qualifiers: Encounter type: initial encounter Qualified Code(s): S81.801A - Unspecified open wound, right lower leg, initial encounter Code(s): S81.801A - Unspecified open wound, right lower leg, initial encounter Status: Acute Assessment and Plan: Right foot full-thickness ulceration status post I&D on 02/23 with General surgery Wound cultures showing MRSA and group a strep. patient initiated on IV vancomycin, IV cefepime, IV Flagyl upon admission on 02/20/2022 02/24/2022 Flagyl stopped and IV vancomycin and IV cefepime continued 02/25/2022 case discussed with ID pharmacist and vancomycin appropriate monotherapy for MRSA and group a strep at this time.? Cefepime stopped.? Patient will likely need approximately 2 weeks of antibiotic therapy.? We will continue IV secondary to septic bursitis as below and adjust to oral pending ortho recommendations. 02/21 Venous Dopplers negative for any acute DVT. Wound care consulted patient receiving daily dressing changes with silver gel and santyl ?general surgery managing wound care ?will consult dietitian for nutritional assessment and optimal wound healing 02/27/22 stable 02/28/22 Continue daily dressing changes per general surgery. Pain controlled on oral percocet. 03/02/22: Continue current dressing change orders. (3) Necrotizing soft tissue infection: Code(s): M79.89 - Other specified soft tissue disorders Status: Acute Assessment and Plan: ?patient with concern for septic olecranon bursitis more and forearm abscess. S/p I&D left forearm abscess with drain placement on 02/24/2022 With orthopedics ?it does not appear OR cultures were sent, but organisms likely this a.m. as isolated from right foot wound.? Continue IV vancomycin with pharmacy to dose.? Patient will likely need 2-4 weeks of antibiotic therapy.? Will defer to Orthopedics regarding length of IV antibiotics needed and when can transition to oral antibiotics.? Patient requiring frequent IV changes for infiltration.? PICC line ordered for inpatient IV antibiotic therapy.? It is strongly recommended patient not be discharged on IV antibiotics and central line given his history of IV drug use. 02/28/22 Continue every other dressing changes per Ortho.?Discussed antibiotics with Ortho surgeon who would like 4 weeks of IV antibiotics. OR I&D septic bursitis and forearm abscess on 02/24. Vancomycin started 02/20, however, source control 02/24/22 making today day 5 of antibiotics. He will need dose adjustment for Q24 hour or Q12 hour for transition to rehab. 03/02/22: dressing changes as noted and ordered per Ortho. right foot growth of group a strep as well as MRSA. monotherapy with vancomycin upon discharge to continue for 4 weeks. To be determined wether it will be BID or daily dosing. The acc
[2022-03-02 16:37] LABS: Glucose Point of Care 169 mg/dl (65-105)
[2022-03-02] MEDS: AMITRIPTYLINE HCL 25 MG TABLET 50 MG PO (21:56)
[2022-03-02] MEDS: INSULIN GLARGINE (*BKC) 100 UNITS/ML 26 UNITS SUB-Q (21:57)
[2022-03-02 22:21] LABS: Glucose Point of Care 195 mg/dl (65-105)
[2022-03-03] VITALS (9 sets, daily range): BP systolic 114–138; BP diastolic 54–70; PULSE 78–93; RESP 16–20; TEMP 35.8–36.4; O2SAT 91–96; BMI 26.5
[2022-03-03] MEDS: ALBUTEROL SULFATE NEB 2.5 MG/3 ML INH INHALATION ×3 (02:35→13:44)
[2022-03-03] MEDS: IPRATROPIUM BR 0.02% INH SOLN 0.5 MG/2.5 ML VIAL INHALATION ×3 (02:35→13:44)
[2022-03-03] MEDS: CENTRAL LINE FLUSH 10 ML IV PUSH ×2 (05:47→13:36)
[2022-03-03] MEDS: GABAPENTIN 400 MG CAPSULE 800 MG PO ×2 (05:47→13:33)
[2022-03-03 06:01] LABS: Basophils Percent Auto 0.3 % (0.2-1.2); Eosinophils Absolute Auto 0.1 K/mm3 (0-0.3); Eosinophils Percent Auto 0.9 % (0-4.4); Hematocrit 30.9 % (42.0-52.0); Hemoglobin 9.6 g/dL (14.0-18.0); Immature Granulocyte Absolute 0.04 K/mm3 (0.00-0.031); Immature Granulocyte Percent A 0.4 % (0-0.5); Lymphocytes Percent Auto 17.2 % (18.3-44.2); Mean Corpuscular HGB Conc 31.1 g/dl (32-36); Mean Corpuscular Hemoglobin 26.4 pg (26-34); Mean Corpuscular Volume 84.9 fl (80-100); Mean Platelet Volume 8.6 fl (7.4-10.4); Monocytes Absolute Auto 0.7 K/mm3 (0.1-0.6); Monocytes Percent Auto 7.3 % (2.6-8.5); Neutrophils Absolute Auto 7.3 K/mm3 (1.3-6.7); Neutrophils Percent Auto 73.9 % (45.5-73.1); Platelet Count Result 459 k/mm3 (150-375); Red Blood Count 3.64 M/mm3 (4.6-6.20); Red Cell Distribution Width 14.8 % (11.5-14.5); White Blood Count 9.9 K/mm3 (4.5-10.0)
[2022-03-03 08:12] LABS: Glucose Point of Care 155 mg/dl (65-105)
[2022-03-03] MEDS: INSULIN ASPART (*BKC) 100 UNITS/ML 7 UNITS SUB-Q ×2 (09:37→13:34)
[2022-03-03] MEDS: SENNA/DOCUSATE SODIUM TABLET 2 TAB PO (09:38)
[2022-03-03] MEDS: EMPAGLIFLOZIN 10 MG TABLET PO (09:38)
[2022-03-03] MEDS: ENOXAPARIN 40 MG/0.4 ML SYRINGE SUB-Q (09:38)
[2022-03-03] MEDS: polyethylene glycoL 3350 17 GM POWD.PACK PO (09:38)
[2022-03-03] MEDS: LOSARTAN POTASSIUM 50 MG TABLET PO (09:38)
[2022-03-03] MEDS: NICOTINE (*PBKC) 21 MG PATCH 1 PATCH TRANSDERM (09:38)
[2022-03-03] MEDS: FAMOTIDINE 20 MG TABLET PO (09:38)
[2022-03-03] MEDS: COLLAGENASE OINT 30 GM TUBE 1 APPLIC TOPICAL (09:39)
[2022-03-03] MEDS: MUPIROCIN 2% OINT 22 GM TUBE 1 APPLIC TOPICAL (09:39)
[2022-03-03] MEDS: LIDOCAINE 5% PATCH 1 PATCH TRANSDERM (09:39)
[2022-03-03] MEDS: SILVERGEL (ELTA) 45 ML 1 APPLIC TOPICAL (09:40)
--- NOTE | 2022-03-03 10:04 | P.DS_ITS ---
DS: Admitting Diagnosis Discharge Date 03/03/22 1000 Admitting Diagnosis Sepsis, osteomylitis, elbow bursiitis DS: Discharge Diagnosis Discharge Diagnosis (1) Sepsis: Qualifiers: Sepsis acute organ dysfunction status: unspecified Sepsis type: sepsis due to unspecified organism Qualified Code(s): A41.9 - Sepsis, unspecified organism Code(s): A41.9 - Sepsis, unspecified organism Status: Resolved Assessment and Plan: On admission, BP 93/63, HR 96, spO2 86% room air, WBC 29, lactic acid 3.2 with infected diabetic foot ulceration * Continue IV antibiotics. * Monitor hemodynamics. * Lactic acid improved with antibiotic therapy and fluid resuscitation. * 02/20/22 Blood cultures negative to date. * Wound cultures as below. * 02/27/22 wbc 13, lactic acid 2.3, procalcitonin 0.3, CRP improved 5.2 (down from 25). monitor * 02/28/22 WBC trended to normal. Afebrile. * 03/01/2022 wbc wnl * 03/02/2022: No longer meeting SIRS or sepsis criteria. Receiving monotherapy antibiotics with vancomycin. He will require treatment for weeks. Suspect he will be ready for discharge tomorrow to [facility] for continued rehab and treatment once his glucose is better controlled. (2) Wound of right lower extremity: Qualifiers: Encounter type: initial encounter Qualified Code(s): S81.801A - Unspecified open wound, right lower leg, initial encounter Code(s): S81.801A - Unspecified open wound, right lower leg, initial encounter Status: Acute Assessment and Plan: Right foot full-thickness ulceration status post I&D on 02/23 with General surgery * Wound cultures showing MRSA and group a strep. * patient initiated on IV vancomycin, IV cefepime, IV Flagyl upon admission on 02/20/2022 * 02/24/2022 Flagyl stopped and IV vancomycin and IV cefepime continued * 02/25/2022 case discussed with ID pharmacist and vancomycin appropriate monotherapy for MRSA and group a strep at this time.? Cefepime stopped.? Patient will likely need approximately 2 weeks of antibiotic therapy.? We will continue IV secondary to septic bursitis as below and adjust to oral pending ortho recommendations. * 02/21 Venous Dopplers negative for any acute DVT. * Wound care consulted patient receiving daily dressing changes with silver gel and santyl * ?general surgery managing wound care * ?will consult dietitian for nutritional assessment and optimal wound healing * 02/27/22 stable * 02/28/22 Continue daily dressing changes per general surgery. Pain controlled on oral percocet. * 03/02/22: Continue current dressing change orders. (3) Necrotizing soft tissue infection: Code(s): M79.89 - Other specified soft tissue disorders Status: Acute Assessment and Plan: ?patient with concern for septic olecranon bursitis more and forearm abscess. * S/p I&D left forearm abscess with drain placement on 02/24/2022 With orthopedics * ?it does not appear OR cultures were sent, but organisms likely this a.m. as isolated from right foot wound.? * Continue IV vancomycin with pharmacy to dose.? Patient will likely need 2-4 weeks of antibiotic therapy.? Will defer to Orthopedics regarding length of IV antibiotics needed and when can transition to oral antibiotics.? * Patient requiring frequent IV changes for infiltration.? PICC line ordered for inpatient IV antibiotic therapy.? It is strongly recommended patient not be discharged on IV antibiotics and central line given his history of IV drug use. * 02/28/22 Continue every other dressing changes per Ortho.?Discussed antibiotics with Ortho surgeon who would like 4 weeks of IV
[2022-03-03 10:51] LABS: Alanine Aminotransferase 25 U/L (6-50); Albumin Level 3.2 g/dL (3.5-5.1); Alkaline Phosphatase 163 U/L (38-126); Anion Gap 9 mmol/L (8-16); Aspartate Amino Transferase 32 U/L (17-59); Bilirubin,Total 0.3 mg/dL (0.2-1.3); Blood Urea Nitrogen 22 mg/dL (9-20); Calcium 8.4 mg/dL (8.4-10.2); Carbon Dioxide 31 mmol/L (22-30); Chloride 93 mmol/L (98-107); Estimated CRCL calculation 84 ml/min; Estimated Glomerular Filt Rate > 60; Glucose 188 mg/dL (65-110); Magnesium 1.9 mg/dL (1.6-2.3); Potassium 4.2 mmol/L (3.4-5.0); Sodium 133 mmol/L (137-145)
[2022-03-03 11:33] LABS: Glucose Point of Care 274 mg/dl (65-105)
[2022-03-03] MEDS: INSULIN ASPART (*BKC) 100 UNITS/ML SUB-Q (13:34)
== END 2022-03-03 17:19 | DRG 854 ==
LOC: ANHED 18:54 → ANH3MEDSUR 23:28
PROVIDERS: Internal Medicine; Nurse Practitioner; Nurse Practitioner Adult Health; Nurse Practitioner Family; Orthopaedic Surgery; Physician Assistant; Surgery; Admitting Provider Internal Medicine; Emergency Provider Emergency Medicine; PCP Internal Medicine Gastroenterology; Visit Provider Nurse Practitioner
PROC: 0KBV0ZZ Excision of Right Foot Muscle, Open Approach (ICD-10-PCS; principal; 2022-02-22 09:30)
PROC: 0J9H00Z Drainage of Left Lower Arm Subcutaneous Tissue and Fascia with Drainage Device, Open Approach (ICD-10-PCS; CPT 24110; principal; 2022-02-24 13:30)
DX: A41.9 Sepsis, unspecified organism (principal); E11.52 Type 2 diabetes mellitus with diabetic peripheral angiopathy with gangrene; L02.414 Cutaneous abscess of left upper limb; L03.115 Cellulitis of right lower limb; I50.32 Chronic diastolic (congestive) heart failure; E87.1 Hypo-osmolality and hyponatremia; L97.919 Non-pressure chronic ulcer of unspecified part of right lower leg with unspecified severity; F19.20 Other psychoactive substance dependence, uncomplicated; L97.418 Non-pressure chronic ulcer of right heel and midfoot with other specified severity; I96 Gangrene, not elsewhere classified; E11.628 Type 2 diabetes mellitus with other skin complications; B95.62 Methicillin resistant Staphylococcus aureus infection as the cause of diseases classified elsewhere; B95.0 Streptococcus, group A, as the cause of diseases classified elsewhere; I11.0 Hypertensive heart disease with heart failure; M71.122 Other infective bursitis, left elbow; E11.65 Type 2 diabetes mellitus with hyperglycemia; J44.9 Chronic obstructive pulmonary disease, unspecified; M54.50 Low back pain, unspecified; E11.622 Type 2 diabetes mellitus with other skin ulcer; Z20.822 Contact with and (suspected) exposure to COVID-19; S60.512A Abrasion of left hand, initial encounter; S60.511A Abrasion of right hand, initial encounter; S50.312A Abrasion of left elbow, initial encounter; S80.212A Abrasion, left knee, initial encounter; S80.211A Abrasion, right knee, initial encounter; S80.811A Abrasion, right lower leg, initial encounter; W18.39XA Other fall on same level, initial encounter; F41.9 Anxiety disorder, unspecified; F32.A Depression, unspecified; F17.210 Nicotine dependence, cigarettes, uncomplicated; Z90.49 Acquired absence of other specified parts of digestive tract; Z86.73 Personal history of transient ischemic attack (TIA), and cerebral infarction without residual deficits; L98.9 Disorder of the skin and subcutaneous tissue, unspecified
CPT/HCPCS: 36415; 36569; 71045; 73080; 73590; 73630; 73700; 80048; 80053; 80202; 80307; 81001; 82010; 82565; 82948; 83036; 83605; 83615; 83735; 83880; 84145; 85025; 85027; 85652; 86140; 86850; 86900; 86901; 87040; 87070; 87075; 87077; 87147; 87186; 87205; 93306; 93970; 94640; 96361; 96365; 96366; 96367; 96368; 96375; 97110; 97162; 97166; 97530; 97535; 99285; A9270; C1751; C9803; G0378; J0131; J0692; J1170; J1650; J1815; J1940; J2250; J2405; J2704; J2997; J3370; J3475; J3480; J7030; J7040; J7120; U0003; U0005